=== PATIENT | female | born 1975 | race African-American/Black ===

== ENCOUNTER 2019-12-16 22:19 | Emergency (ER) | payer MEDICARE, MEDICAID, SELFPAY ==
[2019-12-16 22:29] VITALS: BP 111/82; PULSE 89; RESP 18; TEMP 36.6; O2SAT 99; BMI 45.8
--- NOTE | 2019-12-16 23:07 | ED_ITS ---
HPI - Weakness General Chief complaint: Weakness Stated complaint: DIFFICULTY AMBULATING,MULTIPLE FALLS TODAY Time Seen by Provider: 12/16/19 22:42 Source: patient Mode of arrival: EMS Limitations: no limitations History of Present Illness HPI Narrative: patient with bipolar disorder fibromyalgia and dissociative d isorder with chronic neuropathy came by ambulance for frequent falls since today she fell 4 times says that she has pain in the legs and does not feel very well which is chronic taking Lyrica. At scene per EMS patient was ambulatory when they arrived MD Complaint: generalized weakness Related Data Allergies Allergy/AdvReac Type Severity Reaction Status Date / Time bee pollen [Bee Stings] Allergy Severe ANAPHYLAXIS Unverified 11/21/19 15:15 mushroom Allergy Severe ANAPHYLAXIS Unverified 11/21/19 15:15 aspirin Allergy Unknown BLEED Unverified 11/21/19 15:15 Bleach (Sodium Hypochlorite) Allergy Unknown RASH Unverified 11/21/19 15:15 [BLEACH (SODIUM HYPOCHLORITE)] ibuprofen Allergy Unknown Verified 04/10/17 00:00 lactose [Lactose] Allergy Unknown STOMACH Unverified 11/21/19 15:15 ACHE morphine [Morphine] Allergy Unknown ITCHING Unverified 11/21/19 15:15 NSAIDS (Non-Steroidal AdvReac Unknown BLEED,COUMA Unverified 11/21/19 15:15 Anti-Inflamma DIN [Nsaids] bee sting Allergy Unknown anaphylaxis Uncoded 12/13/16 00:00 BEES Allergy Unknown Uncoded 04/10/17 00:00 LACTOSE Allergy Unknown Uncoded 04/10/17 00:00 MUSHROOMS Allergy Unknown Uncoded 04/10/17 00:00 mushrooms Allergy Unknown Uncoded 12/13/16 00:00 NSAIDS Allergy Unknown Uncoded 12/13/16 00:00 Review of Systems Review of Systems: REVIEW OF SYSTEMS: Pertinent positives and negatives are stated above in the history. GEN: no fevers, chills, fatigue HEENT: no nasal congestion, sore throat, ear pain NEURO: no headache, dizziness, focal weakness PULM: chronic cough+, shortness of breath CV: no chest pain, palpitations, LE edema ABD: no abdominal pain, nausea, vomiting, diarrhea : no dysuria, urgency, frequency SKIN: no rash ROS otherwise negative x 10 PMFSH Past Medical History Medical History Cervical cancer COPD (chronic obstructive pulmonary disease) Deep vein thrombosis Heart failure Herniated disc Neuropathy Pacemaker Pulmonary embolism Stomach cancer Surgical History Gastric bypass status for obesity Hx of cholecystectomy Social History Social History Alcohol intake: never Smoking Status: Never smoker Use of substances other than those prescribed or required for medical reasons: No Advance Directives: No Physical Exam Vital Signs: Vital Signs: Vital Signs Temp Pulse Resp BP Pulse Ox 12/17/19 00:07 91 14 112/76 95 12/16/19 22:29 97.8 F 89 18 111/82 99 Body Mass Index 45.8 Appearance: Alert. Oriented X3. No acute distress. Eyes: Pupils equal, round and reactive to light. ENT: Pharynx normal. Neck: Normal inspection. Neck supple. CVS: Normal heart rate and rhythm. Pulses normal. Respiratory: No respiratory distress. Breath sounds normal. Abdomen: Soft and nontender. patient refused rectal exam Skin: Skin warm and dry. Normal skin color. Normal skin turgor. Extremities: No lower extremity edema. Good range of movement diffusely tender to touch both lower extremities left more than right no calf swelling Neuro: Oriented X 3. No motor deficit. No sensory deficit. Course Course Course Narrative: patient with chronic pain fibromyalgia says that she has sickle cell trait and chronically anemic also complains of bright red blood off and on patient refused rectal exam as said she has a follow-up plan with Dr. Mcbride. Patient is with chronic pain asking for medication for chronic pain will give her prescription of Dilaudid also advised her to follow-up with her commercial sales director and PCP for anemia and hold Coumadin for next 2 days she has a machine at home to check her INR MDM - Weakness Lab Data Result diagrams: 12/16/19 23:32 12/16/19 23:32 Labs: Lab Results 12/16/19 12/16/19 12/16/19 Range/Units 23:32 23:32 23:32 WBC 10.5 (4.8-10.8) X10*3/uL RBC 5.33 (4.20-5.50) X10*6/uL Hgb 9.2 L (12.0-16.0) g/dl Hct 31.9 L (37-47) % MCV 59.8 L (80-98) fL MCH 17.3 L (27.0-33.0) pg MCHC 28.8 L (31.0-35.0) g/dl RDW 24.4 H (11.0-16.0) % Plt Count 375 (160-400) X10*3/uL MPV 9.1 L (9.4-12.3) fL Immature Gran % (Auto) 0.4 (0.0-0.4) % Neut % (Auto) 69.8 (45-73) % Lymph % (Auto) 21.4 (20-40) % Nelson % (Auto) 7.7 (2-11) % Eos % (Auto) 0.6 (0-4) % Baso % (Auto) 0.1 (0-2) % Lymph # (Auto) 2.2 (1.2-4.9) X10*3/uL Nelson # (Auto) 0.8 (0.1-1.2) X10*3/uL Eos # (Auto) 0.1 (0.0-0.4) X10*3/uL Baso # (Auto) 0.0 (0.0-0.2) X10*3/uL Abs Immat Gran (auto) 0.04 H (0.00-0.03) X10*3/uL Absolute Neuts (auto) 7.3 (2.0-8.3) X10*3/uL Absolute Nucleated RBC 0.000 (0.0-0.012) X10*3/uL Nucleated RBC % (auto) 0.0 (0.0-0.2) /100WBC Smear Tech's Comments VERIFIED PT 133.9 H (10.8-13.0) SEC INR 11.0 H* (0.9-1.1) Sodium 142 (135-145) mmol/L Potassium 4.0 (3.3-5.1) mmol/l Chloride 116 H (96-108) mmol/L Carbon Dioxide 19 L (22-29) mmol/L Anion Gap 11 L (12-20) BUN 9 (9-16) mg/dL Creatinine 0.85 (0.5-1.4) mg/dL Estim Creat Clear Calc 111.1 Estimated GFR > 60 Random Glucose 89 (60-115) mg/dL Calcium 7.9 L (8.4-10.2) mg/dL Magnesium 2.0 (1.6-2.6) mg/dL
[2019-12-16] MEDS: HYDROmorphone HCl 2 MG/ML VIAL IVPUSH (23:36)
[2019-12-16 23:38] LABS: Basophils Percent Auto 0.1 % (0-2); Eosinophils Percent Auto 0.6 % (0-4); Imm Gran Abs Auto 0.04 X10*3/uL (0.00-0.03); Imm Gran Pct Auto 0.4 % (0.0-0.4); MANUAL DIFF FLAG SCAN; Mean Corpuscular Hemoglobin 17.3 pg (27.0-33.0); Mean Corpuscular Volume 59.8 fL (80-98); Monocytes Percent Auto 7.7 % (2-11); PLT ABN DIST 1; SCAN SMEAR FLAG 1
[2019-12-16 23:40] LABS: Eosinophils Absolute Auto 0.1 X10*3/uL (0.0-0.4); Hematocrit 31.9 % (37-47); Hemoglobin 9.2 g/dl (12.0-16.0); Lymphocytes Absolute Auto 2.2 X10*3/uL (1.2-4.9); Lymphocytes Percent Auto 21.4 % (20-40); Mean Corpuscular HGB Conc 28.8 g/dl (31.0-35.0); Mean Platelet Volume 9.1 fL (9.4-12.3); Monocytes Absolute Auto 0.8 X10*3/uL (0.1-1.2); Neutrophils Absolute Auto 7.3 X10*3/uL (2.0-8.3); Neutrophils Percent Auto 69.8 % (45-73); Platelet Count 375 X10*3/uL (160-400); Red Blood Count 5.33 X10*6/uL (4.20-5.50); Red Cell Distribution Width 24.4 % (11.0-16.0); White Blood Count 10.5 X10*3/uL (4.8-10.8)
[2019-12-16 23:51] LABS: Prothrombin Time 133.9 SEC (10.8-13.0)
[2019-12-17 00:07] VITALS: BP 112/76; PULSE 91; RESP 14; O2SAT 95
[2019-12-17 00:11] LABS: SLIDE REVIEW VERIFIED
[2019-12-17 00:13] LABS: Anion Gap 11 (12-20); Blood Urea Nitrogen 9 mg/dL (9-16); Calcium 7.9 mg/dL (8.4-10.2); Carbon Dioxide 19 mmol/L (22-29); Chloride 116 mmol/L (96-108); Creatinine Clr Calc Pharmacy 111.1; Estimated Glomerular Filt Rate > 60; Glucose Random 89 mg/dL (60-115); Sodium 142 mmol/L (135-145)
[2019-12-17] MEDS: Albuterol/Iprat 2.5/0.5MG 3 ML AMPUL.NEB INHALE (00:39)
== END 2019-12-17 01:15 | disposition home or self-care (01) ==
PROVIDERS: Emergency Provider Internal Medicine; PCP Family Medicine
DX: M79.7 Fibromyalgia (principal); D64.9 Anemia, unspecified; Z91.81 History of falling; G62.89 Other specified polyneuropathies; F31.9 Bipolar disorder, unspecified; F44.9 Dissociative and conversion disorder, unspecified; Z79.01 Long term (current) use of anticoagulants; Z79.899 Other long term (current) drug therapy
CPT/HCPCS: 36415; 80048; 83735; 85025; 85060; 85610; 96374; 99284; J1170

== ENCOUNTER 2020-03-15 15:25 | Inpatient (IN) | payer MEDICARE, MEDICAID, SELFPAY ==
[2020-03-15] VITALS (12 sets, daily range): BP systolic 92–131; BP diastolic 50–82; PULSE 111–121; RESP 16–24; TEMP 36.6–37.4; O2SAT 97–100; BMI 46.5
--- NOTE | 2020-03-15 | XR_ITS ---
EXAMINATION: XR CHEST CLINICAL INFORMATION: 44-year-old female patient with cough COMPARISON: Portable chest x-ray on 03/28/2019. TECHNIQUE: AP portable semierect view of the chest was obtained. The time of examination was 6:10 PM. The patient is significantly rotated for this exam. FINDINGS: The heart is not enlarged. A left pectoral pacemaker is in place one wire which terminates in the right atrium and the other in the right ventricle. The lungs are clear showing no evidence of edema or consolidation. No pleural effusion is seen. XR/XR chest 1V IMPRESSION: No consolidating pneumonia.
--- NOTE | 2020-03-15 | ECG_ITS ---
Test Reason : WEAKNESS Blood Pressure : / mmHG Vent. Rate : 114 BPM Atrial Rate : 114 BPM P-R Int : 096 ms QRS Dur : 080 ms QT Int : 472 ms P-R-T Axes : 000 033 062 degrees QTc Int : 650 ms Sinus tachycardia with short WV Cannot rule out Inferior infarct (cited on or before 15-MAR-2020) Prolonged QT Abnormal ECG When compared with ECG of 05-APR-2019 13:25, WV interval has decreased Vent. rate has increased BY 46 BPM Referred By: Generic ED Physician Electronically Signed By:Dex Frausto
--- NOTE | 2020-03-15 16:14 | ED_ITS ---
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 Also reports subjective fever and chills. Denies sick contacts, LE edema, dysuria/hematuria MD Complaint: generalized weakness and lack of energy Related Data Home Medications Medication Instructions Recorded Confirmed [id number] 1 tab PO DAILY PRN 03/15/20 diazepam 1 tab PO BEDTIME 03/15/20 dicyclomine 1 tab PO QID 03/15/20 esomeprazole magnesium 1 cap PO BID 03/15/20 hydroxyzine pamoate 1 cap PO TID PRN 03/15/20 ipratropium-albuterol [Combivent 1 puff PO QID 03/15/20 Respimat] lamotrigine 1 tab PO BID 03/15/20 lamotrigine 1 tab PO DAILY 03/15/20 loratadine 1 tab PO DAILY 03/15/20 methocarbamol 2 tab PO BID 03/15/20 olanzapine 1 tab PO BEDTIME 03/15/20 ondansetron HCl 1 tab PO TID PRN 03/15/20 prazosin 1 cap PO BEDTIME 03/15/20 pregabalin 1 cap PO TID 03/15/20 sucralfate 10 ml PO QIDWMHS 03/15/20 topiramate 100 mg PO DAILY 03/15/20 topiramate 200 mg PO BEDTIME 03/15/20 warfarin 10 mg PO SUTUTHSA@1800 03/15/20 warfarin 15 mg PO MOWEFR@1800 03/15/20 zonisamide 1 cap PO BID 03/15/20 Allergies Allergy/AdvReac Type Severity Reaction Status Date / Time bee pollen [Bee Stings] Allergy Severe ANAPHYLAXIS Unverified 11/21/19 15:15 mushroom Allergy Severe ANAPHYLAXIS Unverified 11/21/19 15:15 aspirin Allergy Unknown BLEED Unverified 11/21/19 15:15 Bleach (Sodium Hypochlorite) Allergy Unknown RASH Unverified 11/21/19 15:15 [BLEACH (SODIUM HYPOCHLORITE)] ibuprofen Allergy Unknown Verified 04/10/17 00:00 lactose [Lactose] Allergy Unknown STOMACH Unverified 11/21/19 15:15 ACHE morphine [Morphine] Allergy Unknown ITCHING Unverified 11/21/19 15:15 NSAIDS (Non-Steroidal AdvReac Unknown BLEED,COUMA Unverified 11/21/19 15:15 Anti-Inflamma DIN [Nsaids] bee sting Allergy Unknown anaphylaxis Uncoded 12/13/16 00:00 BEES Allergy Unknown Uncoded 04/10/17 00:00 LACTOSE Allergy Unknown Uncoded 04/10/17 00:00 MUSHROOMS Allergy Unknown Uncoded 04/10/17 00:00 mushrooms Allergy Unknown Uncoded 12/13/16 00:00 NSAIDS Allergy Unknown Uncoded 12/13/16 00:00 Review of Systems Review of Systems: Constitutional: No Weight loss, +Sunjective Fever, No Chills, No Night Sweats, + Fatigue, + Malaise ENT/Mouth: No sore throat, No Rhinorrhea, No Swallowing Difficulty Cardiovascular: No Chest Pain, + SOB, No Dyspnea on Exertion, No Orthopnea, No Edema, No Palpitations Respiratory: + Cough, + Sputum, No Dyspnea Gastrointestinal: + Nausea, No Vomiting, + Diarrhea, No Constipation, + Abdominal pain Genitourinary: No Dysuria, No Urinary Frequency, No Hematuria Musculoskeletal: + joint pain, +Myalgias, No Joint Swelling Skin: No Skin Lesions, No rash Neuro: + Weakness, No Numbness, No Paresthesias,+ Loss of Consciousness, +Headache Yes all other systems are reviewed and are negative [facility] Past Medical History Attestation statement: The following information was validated with the patient. Medical History Cervical cancer COPD (chronic obstructive pulmonary disease) Deep vein thrombosis Heart failure Herniated disc Neuropathy Pacemaker Pulmonary embolism Stomach cancer Surgical History Gastric bypass status for obesity Hx of cholecystectomy Social History Social History Alcohol intake: never Smoking Status: Current every day smoker Smoked in Last 30 Days: Yes Use of substances other than those prescribed or required for medical reasons: Yes Substance Use Type: Marijuana Substance Use Frequency: Occasionally Last Used Substance: Unknown Advance Directives: No Advance Directives Information Provided: Yes Physical Exam Vital Signs: Vital Signs: Last Vital Signs Temp 97.8 F 03/15/20 20:15 Pulse 117 H 03/15/20 20:15 Resp 20 03/15/20 20:15 BP 102/57 L 03/15/20 20:15 Pulse Ox 99 03/15/20 20:02 Body Mass Index 46.5 Const: Nutritional Appearance: obese Limitations: no limitations HENMT: Head: Yes normal to inspection Ears: hearing grossly normal bilaterally General nose exam: Normal external nose present Face and sinus: Yes normal facial exam Eyes: General: appearance normal, both eyes and all related structures Pupils: Equal, round and reactive pupils present EOM: EOMs intact bilaterally Neck: Neck: Yes normal visual inspection and Yes no meningeal signs Resp: Effort & Inspection: normal respiratory effort Auscultation: crackles (Coarse lung sounds throughout) and no wheezes Cardio: Rate: regular rate Heart sounds: S1 normal heart sound present and S2 normal heart sound present GI: Inspection: Yes normal to inspection Palpation (GI): Soft to palpation, Tenderness to palpation present (GI) (Diffusely), no guarding and not rigid Skin: Rashes: no rashes Wounds: no wounds Neuro: Other: Patient uncooperative with exam General: tone normal, no meningeal signs and no focal motor deficits Cranial nerves: Yes Equal, round and reactive pupils present Extrem: General: Yes normal to inspection Course Course Course Narrative: * H/H low at 3.9/13 > will type and screen, transfuse 2 units RBCs to start, and obtain occult stool > with patient's mental status and hemodynamics unlikely acute bleed as patient is compensated * Leukocytosis of 23 > likely from hemoconcentration/low H&H rather than severe sepsis/infection * 1825- upon further questioning patient admits she has been having her menses for longer than normal, has been vaginally bleeding for about 2 weeks, unable to tell me number of pads daily. On evaluation no active exsanguination appreciated, scant amount of blood on pad. Remaining labs resulted INR grea ter than 26 >> 10IV Vitamin K & 4U FFP ordered. Blood consent signed in patient's chart. Spoke to ICU, Dr. 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 On exam tachycardic, tachypneic, lungs with coarse breath sounds throughout all, not cooperative with exam. Concern for viral syndrome/COVID-19 vs pneumonia vs intra-abdominal process. Rule out metabolic/infectious etiology and ICH Plan: EKG, labs, UA, CXR/imaging, lactic, blood cultures, COVID-19 testing, IVF, anticipated admission Lab Data Result diagrams: 03/15/20 17:37 03/15/20 17:37 Labs: Lab Results 03/15/20 03/15/20 03/15/20 Range/Units 15:43 17:37 17:37 WBC 23.1 H (4.8-10.8) X10*3/uL RBC 2.19 L D (4.20-5.50) X10*6/uL Hgb 3.9 L* D (12.0-16.0) g/dl Hct 13.0 L* D (37-47) % MCV 59.4 L (80-98) fL MCH 17.8 L (27.0-33.0) pg MCHC 30.0 L (31.0-35.0) g/dl RDW 22.5 H (11.0-16.0) % Plt Count 211 D (160-400) X10*3/uL MPV 9.9 (9.4-12.3) fL Immature Gran % (Auto) 2.7 H (0.0-0.4) % Neut % (Auto) 80.7 H (45-73) % Lymph % (Auto) 9.7 L (20-40) % Logan % (Auto) 6.8 (2-11) % Eos % (Auto) 0.0 (0-4) % Baso % (Auto) 0.1 (0-2) % Lymph # (Auto) 2.3 (1.2-4.9) X10*3/uL Logan # (Auto) 1.6 H (0.1-1.2) X10*3/uL Eos # (Auto) 0.0 (0.0-0.4) X10*3/uL Baso # (Auto) 0.0 (0.0-0.2) X10*3/uL Abs Immat Gran (auto) 0.62 H (0.00-0.03) X10*3/uL Absolute Neuts (auto) 18.6 H (2.0-8.3) X10*3/uL Absolute Nucleated RBC 0.150 H (0.0-0.012) X10*3/uL Nucleated RBC % (auto) 0.6 H (0.0-0.2) /100WBC Smear Tech's Comments VERIFIED Hold Purple Top PT (10.8-13.0) SEC INR (0.9-1.1) APTT (24.1-38.0) SEC D-Dimer NG/ML Sodium (135-145) mmol/L Potassium (3.3-5.1) mmol/l Chloride (96-108) mmol/L Carbon Dioxide (22-29) mmol/L Anion Gap (12-20) BUN (9-16) mg/dL Creatinine (0.5-1.4) mg/dL Estim Creat Clear Calc Estimated GFR Random Glucose (60-115) mg/dL Lactic Acid 2.6 H* (0.5-2.0) mmol/L Calcium (8.4-10.2) mg/dL Magnesium (1.6-2.6) mg/dL Total Bilirubin (0.0-1.0) mg/dL Direct Bilirubin (0.0-0.5) mg/dL AST (5-31) U/L ALT (0-31) U/L Alkaline Phosphatase (39-117) U/L Troponin I High Sens (<3.5-17.0) ng/L Total Protein (6.5-8.0) g/dL Albumin (3.5-5.0) g/dL Lipase (8-78) U/L Stool Occult Blood (NEG) Ethyl Alcohol mg/dL Coronavirus (PCR) NEGATIVE (Negative) Influenza Type A (PCR) NEGATIVE (Negative) Influenza Type B (PCR) NEGATIVE (Negative) RSV RNA Qual (PCR) NEGATIVE (Negative) Blood Type Antibody Screen Crossmatch 03/15/20 03/15/20 03/15/20 Range/Units 17:37 17:37 17:38 WBC (4.8-10.8) X10*3/uL RBC (4.20-5.50) X10*6/uL Hgb (12.0-16.0) g/dl Hct (37-47) % MCV (80-98) fL MCH (27.0-33.0) pg MCHC (31.0-35.0) g/dl RDW (11.0-16.0) % Plt Count (160-400) X10*3/uL MPV (9.4-12.3) fL Immature Gran % (Auto) (0.0-0.4) % Neut % (Auto) (45-73) % Lymph % (Auto) (20-40) % Logan % (Auto) (2-11) % Eos % (Auto) (0-4) % Baso % (Auto) (0-2) % Lymph # (Auto) (1.2-4.9) X10*3/uL Logan # (Auto) (0.1-1.2) X10*3/uL Eos # (Auto) (0.0-0.4) X10*3/uL Baso # (Auto) (0.0-0.2) X10*3/uL Abs Immat Gran (auto) (0.00-0.03) X10*3/uL Absolute Neuts (auto) (2.0-8.3) X10*3/uL Absolute Nucleated RBC (0.0-0.012) X10*3/uL Nucleated RBC % (auto) (0.0-0.2) /100WBC Smear Tech's Comments Hold Purple Top SEE NOTE PT > 320.0 H D (10.8-13.0) SEC INR > 26.0 H* D (0.9-1.1) APTT > 200.0 H* (24.1-38.0) SEC D-Dimer 242 NG/ML Sodium 138 (135-145) mmol/L Potassium 3.2 L (3.3-5.1) mmol/l Chloride 107 (96-108) mmol/L Carbon Dioxide 21 L (22-29) mmol/L Anion Gap 13 (12-20) BUN 15 D (9-16) mg/dL Creatinine 1.17 (0.5-1.4) mg/dL Estim Creat Clear Calc 81.4 Estimated GFR 50 Random Glucose 113 (60-115) mg/dL Lactic Acid (0.5-2.0) mmol/L Calcium 7.0 L D (8.4-10.2) mg/dL Magnesium 2.1 (1.6-2.6) mg/dL Total Bilirubin 0.6 (0.0-1.0) mg/dL Direct Bilirubin 0.4 (0.0-0.5) mg/dL AST 75 H (5-31) U/L ALT 34 H (0-31) U/L Alkaline Phosphatase 104 (39-117) U/L Troponin I High Sens (<3.5-17.0) ng/L Total Protein 4.5 L (6.5-8.0) g/dL Albumin 2.6 L (3.5-5.0) g/dL Lipase 10 (8-78) U/L Stool Occult Blood (NEG) Ethyl Alcohol mg/dL Coronavirus (PCR) (Negative) Influenza Type A (PCR) (Negative) Influenza Type B (PCR) (Negative) RSV RNA Qual (PCR) (Negative) Blood Type Antibody Screen Crossmatch 03/15/20 03/15/20 03/15/20 Range/Units 17:38 17:38 18:34 WBC (4.8-10.8) X10*3/uL RBC (4.20-5.50) X10*6/uL Hgb (12.0-16.0) g/dl Hct (37-47) % MCV (80-98) fL MCH (27.0-33.0) pg MCHC (31.0-35.0) g/dl RDW (11.0-16.0) % Plt Count (160-400) X10*3/uL MPV (9.4-12.3) fL Immature Gran % (Auto) (0.0-0.4) % Neut % (Auto) (45-73) % Lymph % (Auto) (20-40) % Logan % (Auto) (2-11) % Eos % (Auto) (0-4) % Baso % (Auto) (0-2) % Lymph # (Auto) (1.2-4.9) X10*3/uL Logan # (Auto) (0.1-1.2) X10*3/uL Eos # (Auto) (0.0-0.4) X10*3/uL Baso # (Auto) (0.0-0.2) X10*3/uL Abs Immat Gran (auto) (0.00-0.03) X10*3/uL Absolute Neuts (auto) (2.0-8.3) X10*3/uL Absolute Nucleated RBC (0.0-0.012) X10*3/uL Nucleated RBC % (auto) (0.0-0.2) /100WBC Smear Tech's Comments Hold Purple Top PT (10.8-13.0) SEC INR (0.9-1.1) APTT (24.1-38.0) SEC D-Dimer NG/ML Sodium (135-145) mmol/L Potassium (3.3-5.1) mmol/l Chloride (96-108) mmol/L Carbon Dioxide (22-29) mmol/L Anion Gap (12-20) BUN (9-16) mg/dL Creatinine (0.5-1.4) mg/dL Estim Creat Clear Calc Estimated GFR Random Glucose (60-115) mg/dL Lactic Acid (0.5-2.0) mmol/L Calcium (8.4-10.2) mg/dL Magnesium (1.6-2.6) mg/dL Total Bilirubin (0.0-1.0) mg/dL Direct Bilirubin (0.0-0.5) mg/dL AST (5-31) U/L ALT (0-31) U/L Alkaline Phosphatase (39-117) U/L Troponin I High Sens 7.8 (<3.5-17.0) ng/L Total Protein (6.5-8.0) g/dL Albumin (3.5-5.0) g/dL Lipase (8-78) U/L Stool Occult Blood (NEG) Ethyl Alcohol < 10 mg/dL Coronavirus (PCR) (Negative) Influenza Type A (PCR) (Negative) Influenza Type B (PCR) (Negative) RSV RNA Qual (PCR) (Negative) Blood Type O Positive Antibody Screen NEGATIVE Crossmatch See Detail 03/15/20 Range/Units 18:36 WBC (4.8-10.8) X10*3/uL RBC (4.20-5.50) X10*6/uL Hgb (12.0-16.0) g/dl Hct (37-47) % MCV (80-98) fL MCH (27.0-33.0) pg MCHC (31.0-35.0) g/dl RDW (11.0-16.0) % Plt Count (160-400) X10*3/uL MPV (9.4-12.3) fL Immature Gran % (Auto) (0.0-0.4) % Neut % (Auto) (45-73) % Lymph % (Auto) (20-40) % Logan % (Auto) (2-11) % Eos % (Auto) (0-4) % Baso % (Auto) (0-2) % Lymph # (Auto) (1.2-4.9) X10*3/uL Logan # (Auto) (0.1-1.2) X10*3/uL Eos # (Auto) (0.0-0.4) X10*3/uL Baso # (Auto) (0.0-0.2) X10*3/uL Abs Immat Gran (auto) (0.00-0.03) X10*3/uL Absolute Neuts (auto) (2.0-8.3) X10*3/uL Absolute Nucleated RBC (0.0-0.012) X10*3/uL Nucleated RBC % (auto) (0.0-0.2) /100WBC Smear Tech's Comments Hold Purple Top PT (10.8-13.0) SEC INR (0.9-1.1) APTT (24.1-38.0) SEC D-Dimer NG/ML Sodium (135-145) mmol/L Potassium (3.3-5.1) mmol/l Chloride (96-108) mmol/L Carbon Dioxide (22-29) mmol/L Anion Gap (12-20) BUN (9-16) mg/dL Creatinine (0.5-1.4) mg/dL Estim Creat Clear Calc Estimated GFR Random Glucose (60-115) mg/dL Lactic Acid (0.5-2.0) mmol/L Calcium (8.4-10.2) mg/dL Magnesium (1.6-2.6) mg/dL Total Bilirubin (0.0-1.0) mg/dL Direct Bilirubin (0.0-0.5) mg/dL AST (5-31) U/L ALT (0-31) U/L Alkaline Phosphatase (39-117) U/L Troponin I High Sens (<3.5-17.0) ng/L Total Protein (6.5-8.0) g/dL Albumin (3.5-5.0) g/dL Lipase (8-78) U/L Stool Occult Blood POS (NEG) Ethyl Alcohol mg/dL Coronavirus (PCR) (Negative) Influenza Type A (PCR) (Negative) Influenza Type B (PCR) (Negative) RSV RNA Qual (PCR) (Negative) Blood Type Antibody Screen Crossmatch Critical Care Time Critical Care Time Critical Care Time: Yes Total Critical Care Time: 60 Attestation: Discharge Plan Discharge Clinical Impression: Occult blood in stools, Vaginal bleeding Anemia Qualifiers: Anemia type: unspecified type Qualified Code(s): D64.9 - Anemia, unspecified Falls Qualifiers: Encounter type: initial encounter Qualified Code(s): W19.XXXA - Unspecified fall, initial encounter Abdominal pain Qualifiers: Abdominal location: generalized Qualified Code(s): R10.84 - Generalized abdominal pain Patient Disposition: Admitted As Inpatient
--- NOTE | 2020-03-15 16:21 | CT_ITS ---
EXAMINATION: CT HEAD WITHOUT CONTRAST CLINICAL INFORMATION: Fall on Coumadin. COMPARISON: Prior CT examinations of the brain most recent 02/25/2019. TECHNIQUE: Contiguous axial imaging was performed from the skull base to vertex without intravenous administration of contrast. This CT examination was performed using dose optimization techniques as appropriate, variously including the following: *Automated exposure control *Adjustment of mA and/or kV according to patient size (this includes techniques or standardized protocols for targeted exams where dose is matched to indication/reason for exam; i.e. extremities or head) *Use of iterative reconstruction technique DLP: 803 mGy-cm FINDINGS: There is no evidence of acute intracranial hemorrhage or territorial infarction. No abnormal mass effect or midline shift is seen. Way to white matter differentiation is well preserved. No extra-axial fluid collections are identified. The ventricles are normal in size. There is no abnormal attenuation within the brain parenchyma. The osseous structures and soft tissues are normal. The mastoid air cells and visualized portions of the paranasal sinuses are well aerated. CT/CT head/brain wo con IMPRESSION: No acute intracranial pathology.
[2020-03-15 16:33] LABS: Influenza A PCR NEGATIVE (Negative); Influenza B PCR NEGATIVE (Negative); Resp Syncy Virus RNA Qual PCR NEGATIVE (Negative); SARS COV2 PCR INHOUSE NEGATIVE (Negative)
[2020-03-15] MEDS: Albuterol Sulfate 90 MCG 8 GM INHALER 4 PUFF INHALE (17:15)
[2020-03-15] MEDS: 0.9 % Sodium Chloride 1,000 ML 999 ML IV (17:43)
[2020-03-15 17:51] LABS: MANUAL DIFF FLAG SCAN; NRBC Pct Auto 0.6 /100WBC (0.0-0.2); SCAN SMEAR FLAG 1
[2020-03-15] MEDS: cefTRIAXone sodium 1 GM in 0.9 % Sodium Chloride 50 ML IV (17:51)
[2020-03-15 17:52] LABS: Basophils Percent Auto 0.1 % (0-2); Imm Gran Abs Auto 0.62 X10*3/uL (0.00-0.03); Imm Gran Pct Auto 2.7 % (0.0-0.4); Lymphocytes Absolute Auto 2.3 X10*3/uL (1.2-4.9); Lymphocytes Percent Auto 9.7 % (20-40); Mean Corpuscular Hemoglobin 17.8 pg (27.0-33.0); Mean Platelet Volume 9.9 fL (9.4-12.3); Monocytes Absolute Auto 1.6 X10*3/uL (0.1-1.2); Monocytes Percent Auto 6.8 % (2-11); Neutrophils Absolute Auto 18.6 X10*3/uL (2.0-8.3); Neutrophils Percent Auto 80.7 % (45-73); Platelet Count 211 X10*3/uL (160-400); Red Blood Count 2.19 X10*6/uL (4.20-5.50); Red Cell Distribution Width 22.5 % (11.0-16.0); White Blood Count 23.1 X10*3/uL (4.8-10.8)
[2020-03-15] MEDS: 0.9 % Sodium Chloride 500 ML 999 ML IV (17:53)
[2020-03-15 18:00] LABS: D Dimer 242 NG/ML
[2020-03-15 18:03] LABS: Mean Corpuscular Volume 59.4 fL (80-98); PLT ABN DIST 1
[2020-03-15 18:04] LABS: Hemoglobin 3.9 g/dl (12.0-16.0)
[2020-03-15 18:09] LABS: Lactic Acid 2.6 mmol/L (0.5-2.0)
[2020-03-15 18:15] LABS: INTERNATIONAL NORM RATIO > 26.0 (0.9-1.1); Partial Thromboplastin Time > 200.0 SEC (24.1-38.0); Prothrombin Time > 320.0 SEC (10.8-13.0)
[2020-03-15 18:17] LABS: Troponin-I High Sensitivity 7.8 ng/L (<3.5-17.0)
[2020-03-15 18:18] LABS: SLIDE REVIEW VERIFIED
[2020-03-15] MEDS: Acetaminophen 325 MG TABLET 650 MG PO (18:35)
[2020-03-15 18:36] LABS: Ethanol < 10 mg/dL
[2020-03-15 18:41] LABS: Alanine Aminotransferase 34 U/L (0-31); Albumin Level 2.6 g/dL (3.5-5.0); Alkaline Phosphatase 104 U/L (39-117); Anion Gap 13 (12-20); Aspartate Amino Transferase 75 U/L (5-31); Bilirubin Direct 0.4 mg/dL (0.0-0.5); Bilirubin Total 0.6 mg/dL (0.0-1.0); Blood Urea Nitrogen 15 mg/dL (9-16); Carbon Dioxide 21 mmol/L (22-29); Chloride 107 mmol/L (96-108); Creatinine Clr Calc Pharmacy 81.4; Estimated Glomerular Filt Rate 50; Glucose Random 113 mg/dL (60-115); Lipase 10 U/L (8-78); Magnesium 2.1 mg/dL (1.6-2.6); Potassium 3.2 mmol/l (3.3-5.1); Sodium 138 mmol/L (135-145); Total Protein 4.5 g/dL (6.5-8.0)
--- NOTE | 2020-03-15 18:42 | PM.CCN ---
Critical Care Event Note Summary Code activated: No Narrative: 44 y/o F with underlying DVT/PE on coumadin presenting with ~2week of menometrorrhagia, weakness, falls. On evaluation - Hb 3.9, tachycardic 110's, SBP 90's, INR>26. Rec: elucidate the reason for underlying PPM, 1unit of PRBC and FFP + 1L of LR over the next hour. Replete K. Re-evaluate in ~60 minutes - if hemodynamicas improbing - tele, if still tachy - ICU. Discussed with ER provider. Critical Care Time (minutes): 0
[2020-03-15 19:01] LABS: OBS1 POS (NEG)
[2020-03-15 19:02] LABS: OBS Int Ctl Valid YES
--- NOTE | 2020-03-15 19:11 | CT_ITS ---
EXAMINATION: CT ABDOMEN AND PELVIS WITHOUT CONTRAST CLINICAL INFORMATION: Abdominal pain. Diarrhea. Positive occult stool COMPARISON: 03/28/2019 TECHNIQUE: Multidetector volumetric imaging was performed from the superior aspect of the liver through the pubic symphysis. Sagittal and coronal reformatted images were obtained on the technologist's workstation. This CT examination was performed using dose optimization techniques as appropriate, variously including the following: *Automated exposure control *Adjustment of mA and/or kV according to patient size (this includes techniques or standardized protocols for targeted exams where dose is matched to indication/reason for exam; i.e. extremities or head) *Use of iterative reconstruction technique DLP: 1232 mGy-cm FINDINGS: The lack of intravenous contrast limits evaluation of the solid visceral organs including the liver, spleen, pancreas, and kidneys. LUNG BASES: Partially imaged pacer wires. Normal heart size. Lungs are otherwise clear. LIVER, GALLBLADDER, AND BILIARY TREE: Limited non-contrast evaluation is normal. No gross focal hepatic lesion. Normal liver size and contour. No gross biliary ductal dilation. Status post cholecystectomy. PANCREAS: Limited non-contrast evaluation is normal. No jason-pancreatic fluid. SPLEEN: Limited non-contrast evaluation is normal. ADRENAL GLANDS: Normal; no adrenal mass. KIDNEYS AND URETERS: Limited non-contrast evaluation is normal. No hydronephrosis, hydroureter, or calculi seen. No perinephric stranding. GASTROINTESTINAL TRACT: Postoperative changes consistent with prior gastric bypass. There is a hiatal hernia. Large volume of stool in the colon suggests constipation. No evidence of colitis or diverticulitis. ABDOMINAL WALL: Fat-containing umbilical hernia. Motion artifact. Postoperative changes of the right anterior pelvis. LYMPH NODES: No pathologically enlarged lymph nodes in the abdomen or pelvis. VASCULAR: Normal caliber abdominal aorta. BLADDER: The urinary bladder is significantly distended. PELVIC VISCERA: Normal noncontrast appearance of the uterus and ovaries. OSSEOUS STRUCTURES: Multilevel degenerative changes of the spine. There is a nonspecific density in the right epidural space at the level of L4, possibly a dystrophic calcification. New from the prior study, there is asymmetric enlargement of the left psoas muscle suggestive of the retroperitoneal left psoas hematoma. There is surrounding fluid and fat stranding. There is fluid and fat stranding within the left posterior gluteal region as well. This was present previously and could be dependent edema. CT/CT abdomen pelvis wo con IMPRESSION: Asymmetric enlargement of the left psoas muscle suggesting an retroperitoneal intramuscular left psoas hematoma. Recommend clinical correlation The urinary bladder is significantly distended. If the patient can't void spontaneously a Welch catheter may be helpful.
--- NOTE | 2020-03-15 19:28 | PC.NURSE ---
FIRST UNIT OF FFP STARTED AT THIS TIME. PATIENT REPORTS DIFFICULTY VOIDING. DOES NOT WANT TO GET OFF BED MODI AT THIS TIME. SINUS TACH ON SLIVER HANDLER. LIPS AND NAIL BEDS NOTED TO BE PALE.
[2020-03-15 19:45] LABS: Reflex Lactate? Lactic Acid Added
[2020-03-15] MEDS: Phytonadione (Vit K1) 10 MG in 0.9 % Sodium Chloride 50 ML 51 MG IV (19:46)
--- NOTE | 2020-03-15 20:19 | PC.NURSE ---
LUNGS CLEAR TO AUSCULTATION. SINUS TACH ON MONITOR. NAUSEOUS AND IN PAIN. SPOKE WITH EM LANGE. WILL PUT IN FOR PAIN MEDS. NEEDS TO WAIT FOR PO FLUIDS UNTIL AFTER CT.
[2020-03-15] MEDS: ondansetron HCL 4 MG/2 ML VIAL IVPUSH (21:05)
[2020-03-15 21:35] LABS: ~Lactic Acid-LAB USE ONLY 2.3 mmol/L (0.5-2.0)
[2020-03-15 21:42] LABS: Troponin-I High Sensitivity 7.2 ng/L (<3.5-17.0)
--- NOTE | 2020-03-15 21:47 | PC.NURSE ---
RIGHT AC IV INFILTRATED. IV REMOVED AND BLOOD TRANSFUSION SWITCHED TO 22G IN LEFT HAND. TRANSFUSING WITHOUT DIFFICULTY. HEMATOMA NOTED TO RIGHT AC AT THIS TIME. WARM BLANKET APPLIED TO AREA.
--- NOTE | 2020-03-15 22:19 | P.HPCC_ITS ---
History of Present Illness Date of Service: 03/15/20 Chief Complaint: Weakness The patient is a 44-year-old female with a past medical history of DVTs, pulmonary embolism ( on Coumadin ), epilepsy, cervical cancer, bipolar disorder, peptic ulcer disease, fibromyalgia, asthma, dissociative disorder, depression, morbid obesity with history of gastric bypass and reversal. She presented to the emergency department complaining of weakness. In the ED she reported frequent falls in the past few weeks, with possible LOC, abdominal pain, nausea, and diarrhea. She also had menorrhagia x 2 weeks. She did report subjective fevers and chills. In the emergency department, tachycardic, SBP ranging from 90s to 110s. Afebrile, 100% on room air. Laboratory data significant for WBC 23.1, hemoglobin 3.9, hematocrit 13, PT 320, INR >26, potassium 3.2, bicarb 21, BUN 15, creatinine 1.17, lactic acid 2.6, AST 75, ALT 34, total protein 4.5, albumin 2.6. Imaging: Chest x-ray: no acute findings Head CT with no acute pathology Abdomen/pelvis CT- distended bladder and asymmetric enlargement of the left ps oas muscle suggesting an retroperitoneal intramuscular left psoas hematoma In the ED she received 1.5 L of fluids, ceftriaxone 1 g, and vitamin K. RBCs and FFP see order Will be admitted to the ICU for closely hemodynamic monitoring Review of Systems Constitutional: Constitutional: Reports chills ENT: Reports dizziness Cardiovascular: Cardiovascular: Reports lightheadedness, Reports Loss of Consciousness and Reports dyspnea on exertion Respiratory: Respiratory: Reports cough and Reports dyspnea on exertion Gastrointestinal: Gastrointestinal: Reports abdominal pain, Reports change in bowel habits, Reports diarrhea and Reports nausea Genitourinary: Genitourinary: Reports urinary frequency Musculoskeletal: Musculoskeletal: Reports myalgias, Reports arthralgias and Reports muscle weakness Neurologic: Reports dizziness Hematologic/Lymphatic: Hematologic/Lymphatic: Reports as per [facility] Past Medical History Medical History Cervical cancer COPD (chronic obstructive pulmonary disease) Deep vein thrombosis Heart failure Herniated disc Neuropathy Pacemaker Pulmonary embolism Stomach cancer Date of last menstrual period: 03/01/20 Patient : No Family History Family history: reviewed and not pertinent Surgical History Surgical History Gastric bypass status for obesity Hx of cholecystectomy Social History Social History Alcohol intake: never Smoking Status: Current every day smoker Smoked in Last 30 Days: Yes Use of substances other than those prescribed or required for medical reasons: Yes Substance Use Type: Marijuana Substance Use Frequency: Occasionally Last Used Substance: Unknown Advance Directives: No Advance Directives Information Provided: Yes Meds Allergies Allergy/AdvReac Type Severity Reaction Status Date / Time bee pollen [Bee Stings] Allergy Severe ANAPHYLAXIS Verified 03/15/20 23:45 mushroom Allergy Severe ANAPHYLAXIS Verified 03/15/20 23:45 aspirin Allergy Unknown BLEED Verified 03/15/20 23:45 Bleach (Sodium Hypochlorite) Allergy Unknown RASH Verified 03/15/20 23:45 [BLEACH (SODIUM HYPOCHLORITE)] lactose [Lactose] Allergy Unknown STOMACH Verified 03/15/20 23:45 ACHE morphine [Morphine] Allergy Unknown ITCHING Verified 03/15/20 23:45 ibuprofen AdvReac Unknown Stomach Verified 03/15/20 23:45 Upset NSAIDS (Non-Steroidal AdvReac Unknown BLEED,COUMA Verified 03/15/20 23:45 Anti-Inflamma DIN [Nsaids] Home Medications Medication Instructions Recorded Confirmed Type [id number] 1 tab PO DAILY PRN 03/15/20 History diazepam 1 tab PO BEDTIME 03/15/20 History dicyclomine 1 tab PO QID 03/15/20 History esomeprazole magnesium 1 cap PO BID 03/15/20 History hydroxyzine pamoate 1 cap PO TID PRN 03/15/20 History ipratropium-albuterol [Combivent 1 puff PO QID 03/15/20 History Respimat] lamotrigine 1 tab PO BID 03/15/20 History lamotrigine 1 tab PO DAILY 03/15/20 History loratadine 1 tab PO DAILY 03/15/20 History methocarbamol 2 tab PO BID 03/15/20 History olanzapine 1 tab PO BEDTIME 03/15/20 History ondansetron HCl 1 tab PO TID PRN 03/15/20 History prazosin 1 cap PO BEDTIME 03/15/20 History pregabalin 1 cap PO TID 03/15/20 History sucralfate 10 ml PO QIDWMHS 03/15/20 History topiramate 100 mg PO DAILY 03/15/20 History topiramate 200 mg PO BEDTIME 03/15/20 History warfarin 10 mg PO SUTUTHSA@1800 03/15/20 History warfarin 15 mg PO MOWEFR@1800 03/15/20 History zonisamide 1 cap PO BID 03/15/20 History Physical Exam Vital Signs: Vital Signs: Last Vital Signs Temp 97.8 F 03/15/20 20:15 Pulse 117 H 03/15/20 20:15 Resp 20 03/15/20 20:15 BP 102/57 L 03/15/20 20:15 Pulse Ox 99 03/15/20 20:02 Body Mass Index 46.5 Const: General: lethargic (Only able to answer minimal questions) Orientation/consciousness: lethargic (Only able to answer minimal questions) Eyes: Pupils: Equal, round and reactive pupils present Neck: Neck: Yes supple and Yes no JVD Resp: Effort & Inspection: normal respiratory effort and Actively coughing Auscultation: clear to auscultation bilaterally Cardio: Rate: tachycardic Heart sounds: S1 normal heart sound present and S2 normal heart sound present Peripheral pulses: Peripheral pulses 2+ throughout GI: Inspection: Yes distended Palpation (GI): Soft to palpation, Tenderness to palpation present (GI) in the LLQ and in the RLQ and Hernia present Auscultation: normal bowel sounds Skin: General skin exam: no rashes or lesions noted Neuro: Cranial nerves: Yes Equal, round and reactive pupils present Extrem: General: Yes no pedal edema Results Labs CBC and Chem 7: 03/15/20 17:37 03/15/20 17:37 Labs: Laboratory Results - last 24 hr 03/15/20 03/15/20 03/15/20 15:43 17:37 17:37 MCV 59.4 L MCH 17.8 L MCHC 30.0 L RDW 22.5 H Plt Count 211 D MPV 9.9 Immature Gran % (Auto) 2.7 H Neut % (Auto) 80.7 H Lymph % (Auto) 9.7 L Reynolds % (Auto) 6.8 Eos % (Auto) 0.0 Baso % (Auto) 0.1 Lymph # (Auto) 2.3 Reynolds # (Auto) 1.6 H Eos # (Auto) 0.0 Baso # (Auto) 0.0 Abs Immat Gran (auto) 0.62 H Absolute Neuts (auto) 18.6 H Absolute Nucleated RBC 0.150 H Nucleated RBC % (auto) 0.6 H Smear Tech's Comments VERIFIED Hold Purple Top PT INR APTT D-Dimer Anion Gap Estim Creat Clear Calc Estimated GFR Random Glucose Lactic Acid 2.6 H* Lactic Acid Fup @ 2Hr Calcium Magnesium Total Bilirubin Direct Bilirubin AST ALT Alkaline Phosphatase Troponin I High Sens Total Protein Albumin Lipase Stool Occult Blood Ethyl Alcohol Coronavirus (PCR) NEGATIVE Influenza Type A (PCR) NEGATIVE Influenza Type B (PCR) NEGATIVE RSV RNA Qual (PCR) NEGATIVE Blood Type Antibody Screen Crossmatch 03/15/20 03/15/20 03/15/20 17:37 17:37 17:38 MCV MCH MCHC RDW Plt Count MPV Immature Gran % (Auto) Neut % (Auto) Lymph % (Auto) Reynolds % (Auto) Eos % (Auto) Baso % (Auto) Lymph # (Auto) Reynolds # (Auto) Eos # (Auto) Baso # (Auto) Abs Immat Gran (auto) Absolute Neuts (auto) Absolute Nucleated RBC Nucleated RBC % (auto) Smear Tech's Comments Hold Purple Top SEE NOTE PT > 320.0 H D INR > 26.0 H* D APTT > 200.0 H* D-Dimer 242 Anion Gap 13 Estim Creat Clear Calc 81.4 Estimated GFR 50 Random Glucose 113 Lactic Acid Lactic Acid Fup @ 2Hr Calcium 7.0 L D Magnesium 2.1 Total Bilirubin 0.6 Direct Bilirubin 0.4 AST 75 H ALT 34 H Alkaline Phosphatase 104 Troponin I High Sens Total Protein 4.5 L Albumin 2.6 L Lipase 10 Stool Occult Blood Ethyl Alcohol Coronavirus (PCR) Influenza Type A (PCR) Influenza Type B (PCR) RSV RNA Qual (PCR) Blood Type Antibody Screen Crossmatch 03/15/20 03/15/20 03/15/20 17:38 17:38 18:34 MCV MCH MCHC RDW Plt Count MPV Immature Gran % (Auto) Neut % (Auto) Lymph % (Auto) Reynolds % (Auto) Eos % (Auto) Baso % (Auto) Lymph # (Auto) Reynolds # (Auto) Eos # (Auto) Baso # (Auto) Abs Immat Gran (auto) Absolute Neuts (auto) Absolute Nucleated RBC Nucleated RBC % (auto) Smear Tech's Comments Hold Purple Top PT INR APTT D-Dimer Anion Gap Estim Creat Clear Calc Estimated GFR Random Glucose Lactic Acid Lactic Acid Fup @ 2Hr Calcium Magnesium Total Bilirubin Direct Bilirubin AST ALT Alkaline Phosphatase Troponin I High Sens 7.8 Total Protein Albumin Lipase Stool Occult Blood Ethyl Alcohol < 10 Coronavirus (PCR) Influenza Type A (PCR) Influenza Type B (PCR) RSV RNA Qual (PCR) Blood Type O Positive Antibody Screen NEGATIVE Crossmatch See Detail 03/15/20 03/15/20 03/15/20 18:36 21:03 21:03 MCV MCH MCHC RDW Plt Count MPV Immature Gran % (Auto) Neut % (Auto) Lymph % (Auto) Reynolds % (Auto) Eos % (Auto) Baso % (Auto) Lymph # (Auto) Reynolds # (Auto) Eos # (Auto) Baso # (Auto) Abs Immat Gran (auto) Absolute Neuts (auto) Absolute Nucleated RBC Nucleated RBC % (auto) Smear Tech's Comments Hold Purple Top PT INR APTT D-Dimer Anion Gap Estim Creat Clear Calc Estimated GFR Random Glucose Lactic Acid Lactic Acid Fup @ 2Hr 2.3 H* Calcium Magnesium Total Bilirubin Direct Bilirubin AST ALT Alkaline Phosphatase Troponin I High Sens 7.2 Total Protein Albumin Lipase Stool Occult Blood POS Ethyl Alcohol Coronavirus (PCR) Influenza Type A (PCR) Influenza Type B (PCR) RSV RNA Qual (PCR) Blood Type Antibody Screen Crossmatch Imaging Radiologist's Impressions: Impressions Chest X-Ray 03/15/20 00:00 IMPRESSION: No consolidating pneumonia. Head CT 03/15/20 16:21 IMPRESSION: No acute intracranial pathology. Abdomen/Pelvis CT 03/15/20 19:11 IMPRESSION: Asymmetric enlargement of the left psoas muscle suggesting an retroperitoneal intramuscular left psoas hematoma. Recommend clinical correlation The urinary bladder is significantly distended. If the patient can't void spontaneously a Welch catheter may be helpful. Assessment and Plan (1) Acute blood loss anemia: Status: Acute (2) Hematoma of left psoas region to anticoagulant therapy: Status: Acute Neuro: Lethargic, likely related to acute blood loss. Should resolve with replacement of RBCs. Cardiac: Elevated lactate, tachycardia and low BP likely related to acute blood loss anemia rather then severe sepsis/ infection Pulmonary: No acute issues Renal: DOC- Creatinine 1.17 today was 0.85 in 12/16/19. This is most likely hypoperfusion. 1.5 liter received in ED. Will receive RBCs this should be sufficient for fluid resuscitation. Continue to check renal indices and urine output. Endo: No acute issues. GI: Coagulopathy: INR >26, PT 320. She is on coumadin at home, but is unable to tell me last time and how much coumadin she has been on. Received vit K in ED. Will transfuse x 4 FFPs. Left psoas hematoma - CT abdomen showing a likely left psoas hematoma, this is likely related to anticoagulant. No significant neurological impairment at this time. Will continue to monitor closely for worsening Heme/Onc: Acute blood loss Anemia: H&H 3.9/13 today. Likely due to menorrhagia/ Left psoas hematoma . Will cont with blood product replacement. Repeat CBC when receive x 3pRBC. Will transfuse for < 7. ID: Leukocystosis likely from hemoconcentration/low H&H rather than severe sepsis/infection. She did received ceftriaxone in ED. Will continue to monitor Psych: No acute issues. Diet: NPO Prophylaxis: Compression devices// IV Protonix for GI prophylaxis Code status: FULL CODE. Critical care time: x 90 min of critical care time (3) Vaginal bleeding: Status: Acute (4) DOC (acute kidney injury): Status: Acute (5) Constipation: Status: Acute (6) Hypokalemia: Status: Acute (7) Elevated INR: Status: Acute
[2020-03-15 23:07] LABS: Reflex Lactate? 2 Y
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
[2020-03-15 23:51] LABS: Glucose Urine UA NEG (NEG); Leukocyte Esterase Urine NEG (NEG); Nitrite Urine NEG (NEG); Urine Blood NEG (NEG); Urine Ketones NEG (NEG); Urine Protein NEG (NEG-TRACE)
[2020-03-15] MEDS: lamoTRIgine 100 MG TABLET 125 MG PO (23:51)
[2020-03-15] MEDS: Topiramate 100 MG TABLET 200 MG PO (23:52)
[2020-03-15] MEDS: Lactulose 20 GM/30 ML SOLUTION 30 GM PO (23:53)
[2020-03-15 23:55] LABS: Appearance Urine CLEAR; Color Urine YELLOW
[2020-03-16] VITALS (41 sets, daily range): BP systolic 96–122; BP diastolic 46–75; PULSE 81–110; RESP 16–25; TEMP 36.4–37.5; O2SAT 97–100; BMI 43.8; BMI 45.5
--- NOTE | 2020-03-16 00:23 | PC.NURSE ---
NURSE TO NURSE GIVEN TO TRINI RN IN ICU.
[2020-03-16 00:33] LABS: Amphetamine Screen Urine Not Detected (Not Detect); Barbiturates, Urine POSITIVE (Not Detect); Benzodiazepines Screen Urine POSITIVE (Not Detect); Cannabinoid Screen Urine Not Detected (Not Detect); Cocaine Screen Urine Not Detected (Not Detect); Opiate Screen Urine Not Detected (Not Detect); Phencyclidine Screen Urine Not Detected (Not Detect)
[2020-03-16 00:44] LABS: ~Lactic Acid-LAB USE ONLY 1.9 mmol/L (0.5-2.0)
[2020-03-16] MEDS: Lactulose 20 GM/30 ML SOLUTION 30 GM PO (04:29)
--- NOTE | 2020-03-16 04:44 | PC.NURSE ---
ADMIT TO 252-1 FROM ER...DROWSY..AROUSES TO VERBAL STIMULI...VAGUE RESPONSES TO MANY QUESTIONS...SAO2 99-100% ON ROOM AIR..NO DISTRESS...SBP 90'S-110'S...MULTIPLE BRUISES TO BILATERAL ARMS..#22 angio/prn adaptor left hand non-functional...MULTIPLE ATTEMPTS BY MULTIP[LE RN'S AT IV ACCESS UNSUCCESFUL..ICU EXPLOSIVE TECHNICIAN PRESENT AND AWARE..NO CENTRAL LINE AT PRESENT D/T PT/PTT...#20 ANGIO/PRN ADAPTOR STARTED TO RIGHT ANKLE PER ICU EXPLOSIVE TECHNICIAN...TRANSFUSING FFP/PRBC PER TAR...FOR IV KCL POST-TRANSFUSIONS...FOR AM LABWORK PER CPOE POST-TRTANSFUSIONS PER EXPLOSIVE TECHNICIAN...S.TACH HR 100'S...SCHEDULED LACTULOSE GIVEN...WET COUGH AFTER RECEIPT...CURRENTLY DOZING...FFP ORDERS (X4) COMP[LETE...PRBC'S INFUSING
[2020-03-16] MEDS: Pantoprazole Sodium 40 MG/10 ML VIAL IVPUSH (05:21)
[2020-03-16] MEDS: Potassium Chloride/H20 10 MEQ/100 ML PIGGYBACK 100 MEQ IV ×2 (06:23→07:46)
[2020-03-16] MEDS: Calcium Gluconate/NaCl,Iso-Osm 2 GM/100 ML PLAST..BAG IV ×2 (06:32→12:29)
[2020-03-16 06:37] LABS: Base Excess VBG 1.5 mmol/L; HCO3 VBG 25 mmol/L; Oxygen Saturation VBG 79.7 %; PCO2 VBG 36 mmhg; PO2 VBG 39 mmhg; pH VBG 7.47 (7.32-7.43)
[2020-03-16 06:45] LABS: INTERNATIONAL NORM RATIO 1.3 (0.9-1.1); Prothrombin Time 15.7 SEC (10.8-13.0)
[2020-03-16 06:51] LABS: Basophils Percent Auto 0.1 % (0-2); Eosinophils Percent Auto 0.1 % (0-4); MANUAL DIFF FLAG SCAN; Mean Corpuscular HGB Conc 31.9 g/dl (31.0-35.0); Mean Corpuscular Volume 72.3 fL (80-98); Red Blood Count 2.56 X10*6/uL (4.20-5.50); SCAN SMEAR FLAG 1
[2020-03-16 06:53] LABS: Imm Gran Abs Auto 0.34 X10*3/uL (0.00-0.03); Imm Gran Pct Auto 2.3 % (0.0-0.4); Lymphocytes Absolute Auto 1.9 X10*3/uL (1.2-4.9); Lymphocytes Percent Auto 12.4 % (20-40); Mean Platelet Volume 9.7 fL (9.4-12.3); Monocytes Absolute Auto 1.2 X10*3/uL (0.1-1.2); Monocytes Percent Auto 8.1 % (2-11); NRBC Pct Auto 0.7 /100WBC (0.0-0.2); Neutrophils Absolute Auto 11.5 X10*3/uL (2.0-8.3); Platelet Count 134 X10*3/uL (160-400); White Blood Count 14.9 X10*3/uL (4.8-10.8)
[2020-03-16 07:22] LABS: PLT ABN DIST 1
[2020-03-16 07:24] LABS: Hemoglobin 5.9 g/dl (12.0-16.0)
[2020-03-16 07:25] LABS: Hematocrit 18.5 % (37-47)
[2020-03-16 07:36] LABS: Alanine Aminotransferase 27 U/L (0-31); Albumin Level 2.8 g/dL (3.5-5.0); Alkaline Phosphatase 93 U/L (39-117); Anion Gap 12 (12-20); Aspartate Amino Transferase 56 U/L (5-31); Bilirubin Total 0.9 mg/dL (0.0-1.0); Blood Urea Nitrogen 14 mg/dL (9-16); Calcium 6.9 mg/dL (8.4-10.2); Carbon Dioxide 22 mmol/L (22-29); Chloride 110 mmol/L (96-108); Creatinine Clr Calc Pharmacy 104.4; Estimated Glomerular Filt Rate > 60; Glucose Random 104 mg/dL (60-115); Magnesium 2.1 mg/dL (1.6-2.6); Potassium 2.9 mmol/l (3.3-5.1); Sodium 141 mmol/L (135-145); Total Protein 4.9 g/dL (6.5-8.0)
[2020-03-16 07:49] LABS: SLIDE REVIEW VERIFIED
[2020-03-16 08:32] LABS: Phosphorus 3.1 mg/dL (2.7-4.5)
[2020-03-16] MEDS: HYDROmorphone HCl 0.5 MG/0.5 ML SYRINGE IVPUSH ×2 (09:28→21:16)
[2020-03-16] MEDS: Potassium Chloride Packet 20 MEQ PACKET 40 MEQ PO (09:29)
--- NOTE | 2020-03-16 09:56 | MHC.CM.PN ---
pt lives c her fiance who is also her supervisor blood in their apt. she reports that she uses a walker c ambulation. she is disabled. pt reports that she use to have [facility] svcs and would like them again on dc for nsg and PT. a ref. for this has been made to [facility] per pt's request. pt will have her brother or to be - sister in law provide transportation at dc as they live in the area. dc plan is home c supervisor blood/fiance and vna. cm to cont. to follow.
--- NOTE | 2020-03-16 11:07 | PC.NURSE ---
Pt a&o x3, reports 10/10 all over body pain, medicated with one time dose dilaudid per order, pt awake, asking to use phone, educated on meds that were administered, finished potassium dose as PO med per MD, IV patent in R ankle and R arm, 1 unit RBC transfusing at this time, pneumatic boot on L leg, not on R leg d/t blood transfusing, pt reports vag bleeding due to menstrual cycle. Pt updated her family on plan of care, will cont to monitor, boo intact, draining without issue.
[2020-03-16] MEDS: hydrOXYzine HCL 25 MG TABLET PO (13:51)
[2020-03-16] MEDS: Sucralfate Oral Suspension 1 GM/10 ML ORAL.SUSP PO ×2 (13:51→16:59)
[2020-03-16] MEDS: ondansetron HCL 4 MG/2 ML VIAL IVPUSH (13:51)
[2020-03-16] MEDS: Butalb/Acetamin/Caff 50/325/40 TABLET 1 TAB PO (13:52)
[2020-03-16] MEDS: Albuterol/Iprat 2.5/0.5MG 3 ML AMPUL.NEB INHALE ×2 (13:53→19:59)
--- NOTE | 2020-03-16 14:01 | P.PNCC_ITS ---
Subjective Subjective Date of Service: 03/16/20 Interval History: Old lady with underlying history of DVT/PE on Coumadin, cardiomyopathy status post ppm placement, epilepsy, cervical cancer, asthma, morbid obesity status post bypass and reversal, fibromyalgia, bipolar disorder, dissociative disorder admitted on 03/15/2020 with weakness, falls, and menometrorrhagia resulting in hemorrhagic shock, subacute blood loss anemia, acute kidney injury, left psoas hemorrhage, and coagulopathy. Patient admission hemoglobin of 3.9 and INR greater than 26. She has been started on blood product support and admitted to intensive care unit. Also noted urinary retention with significant bladder distention with drainage of 1.6 L of urine after placement of the Welch catheter No events overnight. Patient hemodynamics stabilized with blood product resuscitation. Her coagulopathy resolved with administration of vitamin K and FFP. Physical Exam Vital Signs: Vital Signs: Last Vital Signs Temp 98.4 F 03/16/20 12:54 Pulse 85 03/16/20 13:54 Resp 20 03/16/20 13:00 BP 109/63 03/16/20 13:00 Pulse Ox 98 03/16/20 13:00 Body Mass Index 43.8 Const: General: no acute distress, alert and awake Nutritional Appearance: obese Eyes: Sclerae: sclerae normal EOM: EOMs intact bilaterally Neck: Neck: Yes no lymphadenopathy, Yes trachea midline and Yes supple Resp: Effort & Inspection: normal respiratory effort and no respiratory distress Auscultation: clear to auscultation bilaterally Cardio: Rate: regular rate Rhythm: regular rhythm Heart sounds: no gallops, no murmurs and no rubs GI: Palpation (GI): Soft to palpation and Other GI palpation findings present ( Nontender) Auscultation: normal bowel sounds Extrem: General: No clubbing, No cyanosis and Yes edema (Trace bilateral) Objective Data Labs CBC & Chem 7: 03/16/20 06:28 03/16/20 06:27 Labs: Laboratory Results - last 24 hr 03/15/20 03/15/20 03/15/20 15:43 17:37 17:37 WBC 23.1 H RBC 2.19 L D Hgb 3.9 L* D Hct 13.0 L* D MCV 59.4 L MCH 17.8 L MCHC 30.0 L RDW 22.5 H Plt Count 211 D MPV 9.9 Immature Gran % (Auto) 2.7 H Neut % (Auto) 80.7 H Lymph % (Auto) 9.7 L Evangeline % (Auto) 6.8 Eos % (Auto) 0.0 Baso % (Auto) 0.1 Lymph # (Auto) 2.3 Evangeline # (Auto) 1.6 H Eos # (Auto) 0.0 Baso # (Auto) 0.0 Abs Immat Gran (auto) 0.62 H Absolute Neuts (auto) 18.6 H Absolute Nucleated RBC 0.150 H Nucleated RBC % (auto) 0.6 H Smear Tech's Comments VERIFIED Hold Purple Top PT INR APTT D-Dimer VBG pH VBG pCO2 VBG pO2 VBG HCO3 VBG O2 Saturation VBG Base Excess Sodium Potassium Chloride Carbon Dioxide Anion Gap BUN Creatinine Estim Creat Clear Calc Estimated GFR Random Glucose Lactic Acid 2.6 H* Lactic Acid Fup @ 2Hr Lactic Acid Fup @ 4Hr Calcium Phosphorus Magnesium Total Bilirubin Direct Bilirubin AST ALT Alkaline Phosphatase Troponin I High Sens Total Protein Albumin Lipase Urine Color Urine Appearance Urine pH Ur Specific [place] Urine Protein Urine Glucose (UA) Urine Ketones Urine Blood Urine Nitrite Ur Leukocyte Esterase Stool Occult Blood Urine Opiates Screen Ur Barbiturates Screen Ur Phencyclidine Scrn Ur Amphetamines Screen U Benzodiazepines Scrn Urine Cocaine Screen U Marijuana (THC) Screen Ethyl Alcohol Coronavirus (PCR) NEGATIVE Influenza Type A (PCR) NEGATIVE Influenza Type B (PCR) NEGATIVE RSV RNA Qual (PCR) NEGATIVE Blood Type Antibody Screen Crossmatch 03/15/20 03/15/20 03/15/20 17:37 17:37 17:38 WBC RBC Hgb Hct MCV MCH MCHC RDW Plt Count MPV Immature Gran % (Auto) Neut % (Auto) Lymph % (Auto) Evangeline % (Auto) Eos % (Auto) Baso % (Auto) Lymph # (Auto) Evangeline # (Auto) Eos # (Auto) Baso # (Auto) Abs Immat Gran (auto) Absolute Neuts (auto) Absolute Nucleated RBC Nucleated RBC % (auto) Smear Tech's Comments Hold Purple Top SEE NOTE PT > 320.0 H D INR > 26.0 H* D APTT > 200.0 H* D-Dimer 242 VBG pH VBG pCO2 VBG pO2 VBG HCO3 VBG O2 Saturation VBG Base Excess Sodium 138 Potassium 3.2 L Chloride 107 Carbon Dioxide 21 L Anion Gap 13 BUN 15 D Creatinine 1.17 Estim Creat Clear Calc 81.4 Estimated GFR 50 Random Glucose 113 Lactic Acid Lactic Acid Fup @ 2Hr Lactic Acid Fup @ 4Hr Calcium 7.0 L D Phosphorus Magnesium 2.1 Total Bilirubin 0.6 Direct Bilirubin 0.4 AST 75 H ALT 34 H Alkaline Phosphatase 104 Troponin I High Sens Total Protein 4.5 L Albumin 2.6 L Lipase 10 Urine Color Urine Appearance Urine pH Ur Specific [place] Urine Protein Urine Glucose (UA) Urine Ketones Urine Blood Urine Nitrite Ur Leukocyte Esterase Stool Occult Blood Urine Opiates Screen Ur Barbiturates Screen Ur Phencyclidine Scrn Ur Amphetamines Screen U Benzodiazepines Scrn Urine Cocaine Screen U Marijuana (THC) Screen Ethyl Alcohol Coronavirus (PCR) Influenza Type A (PCR) Influenza Type B (PCR) RSV RNA Qual (PCR) Blood Type Antibody Screen Crossmatch 03/15/20 03/15/20 03/15/20 17:38 17:38 18:34 WBC RBC Hgb Hct MCV MCH MCHC RDW Plt Count MPV Immature Gran % (Auto) Neut % (Auto) Lymph % (Auto) Evangeline % (Auto) Eos % (Auto) Baso % (Auto) Lymph # (Auto) Evangeline # (Auto) Eos # (Auto) Baso # (Auto) Abs Immat Gran (auto) Absolute Neuts (auto) Absolute Nucleated RBC Nucleated RBC % (auto) Smear Tech's Comments Hold Purple Top PT INR APTT D-Dimer VBG pH VBG pCO2 VBG pO2 VBG HCO3 VBG O2 Saturation VBG Base Excess Sodium Potassium Chloride Carbon Dioxide Anion Gap BUN Creatinine Estim Creat Clear Calc Estimated GFR Random Glucose Lactic Acid Lactic Acid Fup @ 2Hr Lactic Acid Fup @ 4Hr Calcium Phosphorus Magnesium Total Bilirubin Direct Bilirubin AST ALT Alkaline Phosphatase Troponin I High Sens 7.8 Total Protein Albumin Lipase Urine Color Urine Appearance Urine pH Ur Specific [place] Urine Protein Urine Glucose (UA) Urine Ketones Urine Blood Urine Nitrite Ur Leukocyte Esterase Stool Occult Blood Urine Opiates Screen Ur Barbiturates Screen Ur Phencyclidine Scrn Ur Amphetamines Screen U Benzodiazepines Scrn Urine Cocaine Screen U Marijuana (THC) Screen Ethyl Alcohol < 10 Coronavirus (PCR) Influenza Type A (PCR) Influenza Type B (PCR) RSV RNA Qual (PCR) Blood Type O Positive Antibody Screen NEGATIVE Crossmatch See Detail 03/15/20 03/15/20 03/15/20 18:36 21:03 21:03 WBC RBC Hgb Hct MCV MCH MCHC RDW Plt Count MPV Immature Gran % (Auto) Neut % (Auto) Lymph % (Auto) Evangeline % (Auto) Eos % (Auto) Baso % (Auto) Lymph # (Auto) Evangeline # (Auto) Eos # (Auto) Baso # (Auto) Abs Immat Gran (auto) Absolute Neuts (auto) Absolute Nucleated RBC Nucleated RBC % (auto) Smear Tech's Comments Hold Purple Top PT INR APTT D-Dimer VBG pH VBG pCO2 VBG pO2 VBG HCO3 VBG O2 Saturation VBG Base Excess Sodium Potassium Chloride Carbon Dioxide Anion Gap BUN Creatinine Estim Creat Clear Calc Estimated GFR Random Glucose Lactic Acid Lactic Acid Fup @ 2Hr 2.3 H* Lactic Acid Fup @ 4Hr Calcium Phosphorus Magnesium Total Bilirubin Direct Bilirubin AST ALT Alkaline Phosphatase Troponin I High Sens 7.2 Total Protein Albumin Lipase Urine Color Urine Appearance Urine pH Ur Specific [place] Urine Protein Urine Glucose (UA) Urine Ketones Urine Blood Urine Nitrite Ur Leukocyte Esterase Stool Occult Blood POS Urine Opiates Screen Ur Barbiturates Screen Ur Phencyclidine Scrn Ur Amphetamines Screen U Benzodiazepines Scrn Urine Cocaine Screen U Marijuana (THC) Screen Ethyl Alcohol Coronavirus (PCR) Influenza Type A (PCR) Influenza Type B (PCR) RSV RNA Qual (PCR) Blood Type Antibody Screen Crossmatch 03/15/20 03/15/20 03/16/20 23:40 23:40 00:23 WBC RBC Hgb Hct MCV MCH MCHC RDW Plt Count MPV Immature Gran % (Auto) Neut % (Auto) Lymph % (Auto) Evangeline % (Auto) Eos % (Auto) Baso % (Auto) Lymph # (Auto) Evangeline # (Auto) Eos # (Auto) Baso # (Auto) Abs Immat Gran (auto) Absolute Neuts (auto) Absolute Nucleated RBC Nucleated RBC % (auto) Smear Tech's Comments Hold Purple Top PT INR APTT D-Dimer VBG pH VBG pCO2 VBG pO2 VBG HCO3 VBG O2 Saturation VBG Base Excess Sodium Potassium Chloride Carbon Dioxide Anion Gap BUN Creatinine Estim Creat Clear Calc Estimated GFR Random Glucose Lactic Acid Lactic Acid Fup @ 2Hr Lactic Acid Fup @ 4Hr 1.9 Calcium Phosphorus Magnesium Total Bilirubin Direct Bilirubin AST ALT Alkaline Phosphatase Troponin I High Sens Total Protein Albumin Lipase Urine Color YELLOW Urine Appearance CLEAR Urine pH 6.0 Ur Specific [place] 1.020 Urine Protein NEG Urine Glucose (UA) NEG Urine Ketones NEG Urine Blood NEG Urine Nitrite NEG Ur Leukocyte Esterase NEG Stool Occult Blood Urine Opiates Screen Not Detected Ur Barbiturates Screen POSITIVE H Ur Phencyclidine Scrn Not Detected Ur Amphetamines Screen Not Detected U Benzodiazepines Scrn POSITIVE H Urine Cocaine Screen Not Detected U Marijuana (THC) Screen Not Detected Ethyl Alcohol Coronavirus (PCR) Influenza Type A (PCR) Influenza Type B (PCR) RSV RNA Qual (PCR) Blood Type Antibody Screen Crossmatch 03/16/20 03/16/20 03/16/20 06:27 06:27 06:27 WBC RBC Hgb Hct MCV MCH MCHC RDW Plt Count MPV Immature Gran % (Auto) Neut % (Auto) Lymph % (Auto) Evangeline % (Auto) Eos % (Auto) Baso % (Auto) Lymph # (Auto) Evangeline # (Auto) Eos # (Auto) Baso # (Auto) Abs Immat Gran (auto) Absolute Neuts (auto) Absolute Nucleated RBC Nucleated RBC % (auto) Smear Tech's Comments Hold Purple Top PT INR APTT D-Dimer VBG pH 7.47 H VBG pCO2 36 VBG pO2 39 VBG HCO3 25 VBG O2 Saturation 79.7 VBG Base Excess 1.5 Sodium 141 Potassium 2.9 L Chloride 110 H Carbon Dioxide 22 Anion Gap 12 BUN 14 Creatinine 0.88 Estim Creat Clear Calc 104.4 Estimated GFR > 60 Random Glucose 104 Lactic Acid Lactic Acid Fup @ 2Hr Lactic Acid Fup @ 4Hr Calcium 6.9 L Phosphorus 3.1 Magnesium 2.1 Total Bilirubin 0.9 Direct Bilirubin AST 56 H ALT 27 Alkaline Phosphatase 93 Troponin I High Sens Total Protein 4.9 L Albumin 2.8 L Lipase Urine Color Urine Appearance Urine pH Ur Specific [place] Urine Protein Urine Glucose (UA) Urine Ketones Urine Blood Urine Nitrite Ur Leukocyte Esterase Stool Occult Blood Urine Opiates Screen Ur Barbiturates Screen Ur Phencyclidine Scrn Ur Amphetamines Screen U Benzodiazepines Scrn Urine Cocaine Screen U Marijuana (THC) Screen Ethyl Alcohol Coronavirus (PCR) Influenza Type A (PCR) Influenza Type B (PCR) RSV RNA Qual (PCR) Blood Type Antibody Screen Crossmatch 03/16/20 03/16/20 06:28 06:28 WBC 14.9 H RBC 2.56 L Hgb 5.9 L* D Hct 18.5 L* D MCV 72.3 L D MCH 23.0 L MCHC 31.9 RDW Not Reportable Plt Count 134 L D MPV 9.7 Immature Gran % (Auto) 2.3 H Neut % (Auto) 77.0 H Lymph % (Auto) 12.4 L Evangeline % (Auto) 8.1 Eos % (Auto) 0.1 Baso % (Auto) 0.1 Lymph # (Auto) 1.9 Evangeline # (Auto) 1.2 Eos # (Auto) 0.0 Baso # (Auto) 0.0 Abs Immat Gran (auto) 0.34 H Absolute Neuts (auto) 11.5 H Absolute Nucleated RBC 0.110 H Nucleated RBC % (auto) 0.7 H Smear Tech's Comments VERIFIED Hold Purple Top PT 15.7 H D INR 1.3 H APTT D-Dimer VBG pH VBG pCO2 VBG pO2 VBG HCO3 VBG O2 Saturation VBG Base Excess Sodium Potassium Chloride Carbon Dioxide Anion Gap BUN Creatinine Estim Creat Clear Calc Estimated GFR Random Glucose Lactic Acid Lactic Acid Fup @ 2Hr Lactic Acid Fup @ 4Hr Calcium Phosphorus Magnesium Total Bilirubin Direct Bilirubin AST ALT Alkaline Phosphatase Troponin I High Sens Total Protein Albumin Lipase Urine Color Urine Appearance Urine pH Ur Specific [place] Urine Protein Urine Glucose (UA) Urine Ketones Urine Blood Urine Nitrite Ur Leukocyte Esterase Stool Occult Blood Urine Opiates Screen Ur Barbiturates Screen Ur Phencyclidine Scrn Ur Amphetamines Screen U Benzodiazepines Scrn Urine Cocaine Screen U Marijuana (THC) Screen Ethyl Alcohol Coronavirus (PCR) Influenza Type A (PCR) Influenza Type B (PCR) RSV RNA Qual (PCR) Blood Type Antibody Screen Crossmatch Progress Note: A&P Assessment and plan (1) Vaginal bleeding: Status: Acute Assessment and Plan: Assessment: 44-year-old lady with underlying history of DVT/PE on antico agulation and cardiomyopathy status post pacemaker admitted with hemorrhagic shock secondary to subacute blood loss anemia with coagulopathy, left psoas hemorrhage, acute kidney injury, urinary retention and menometrorrhagia Neuro: No acute issues. Underlying history of seizures, continue Lamotrigine and topiramate. Cardiac: No acute issues. Underlying history of pacemaker placement. Pulmonary: No acute issues. Underlying history of asthma. Renal: Acute kidney injury secondary to hemorrhagic shock, improved with blood product resuscitation. Urinary retention with drainage of 1.60 to of urine after Welch placement. Endo: No acute issues. GI: No acute issues. ID: No acute issues Heme/Onc: Hemorrhagic shock secondary to subacute blood loss anemia secondary to menometrorrhagia on background of anticoagulation therapy, resolved after blood product resuscitation. Left psoas hemorrhage secondary to coagulopathy, continue with conservative management. Continue to monitor hemoglobin level. Transfusion threshold of 7. Coagulopathy with elevated INR, resolved with FFP administration. Psych: No acute issues. Miscellaneous: No acute issues. Prophylaxis: Pneumatic compression Diet: Regular Critical care time spent: 45 minutes (2) Acute blood loss anemia: Status: Acute (3) Hematoma of left psoas region to anticoagulant therapy: Status: Acute (4) DOC (acute kidney injury): Status: Acute (5) Elevated INR: Status: Acute (6) Hemorrhagic shock: Status: Acute (7) Urinary retention: Status: Acute Time Spent With Patient Total time spent with greater than 50% in coordination of care (as documented) at patient's floor/unit and/or counseling patient:: 0 Critical Care Time 45
[2020-03-16] MEDS: Calcium Carbonate 750 MG TAB.CHEW PO (14:51)
[2020-03-16] MEDS: Acetaminophen 325 MG TABLET 650 MG PO (16:59)
[2020-03-16] MEDS: Dicyclomine HCl 10 MG CAPSULE PO ×2 (16:59→21:14)
[2020-03-16] MEDS: Pregabalin 200 MG CAPSULE PO ×2 (16:59→21:14)
[2020-03-16 17:27] LABS: Basophils Percent Auto 0.1 % (0-2); Eosinophils Percent Auto 0.3 % (0-4); Hemoglobin 8.7 g/dl (12.0-16.0); MANUAL DIFF FLAG SCAN; Neutrophils Percent Auto 73.5 % (45-73); Platelet Count 102 X10*3/uL (160-400); Red Cell Distribution Width 26.5 % (11.0-16.0); SCAN SMEAR FLAG 1
[2020-03-16 17:28] LABS: Hematocrit 26.3 % (37-47); Imm Gran Pct Auto 2.5 % (0.0-0.4); Lymphocytes Absolute Auto 2.6 X10*3/uL (1.2-4.9); Lymphocytes Percent Auto 16.2 % (20-40); Mean Corpuscular HGB Conc 33.1 g/dl (31.0-35.0); Mean Corpuscular Hemoglobin 25.4 pg (27.0-33.0); Mean Corpuscular Volume 76.7 fL (80-98); Monocytes Absolute Auto 1.2 X10*3/uL (0.1-1.2); Monocytes Percent Auto 7.4 % (2-11); Neutrophils Absolute Auto 11.7 X10*3/uL (2.0-8.3); Red Blood Count 3.43 X10*6/uL (4.20-5.50); White Blood Count 15.9 X10*3/uL (4.8-10.8)
[2020-03-16 17:48] LABS: PLT ABN DIST 1
[2020-03-16 17:49] LABS: NRBC Pct Auto 1.3 /100WBC (0.0-0.2); SLIDE REVIEW VERIFIED
[2020-03-16] MEDS: diazePAM 10 MG TABLET PO (21:12)
[2020-03-16] MEDS: lamoTRIgine 100 MG TABLET PO (21:13)
[2020-03-16] MEDS: Zonisamide 100 MG CAPSULE PO (21:14)
[2020-03-16] MEDS: OLANZapine 7.5 MG TABLET 15 MG PO (21:14)
[2020-03-16] MEDS: Topiramate 100 MG TABLET 200 MG PO (21:15)
[2020-03-16] MEDS: Prazosin HCL 1 MG CAPSULE 2 MG PO (21:15)
[2020-03-17] VITALS (9 sets, daily range): BP systolic 103–117; BP diastolic 63–75; PULSE 83–107; RESP 17–25; TEMP 35.8–37.2; O2SAT 97–100; BMI 43.6
[2020-03-17 05:55] LABS: Hemoglobin 8.2 g/dl (12.0-16.0); Lymphocytes Percent Auto 15.3 % (20-40); MANUAL DIFF FLAG SCAN; NRBC Pct Auto 0.9 /100WBC (0.0-0.2); SCAN SMEAR FLAG 1
[2020-03-17 05:56] LABS: Basophils Percent Auto 0.1 % (0-2); Eosinophils Absolute Auto 0.1 X10*3/uL (0.0-0.4); Eosinophils Percent Auto 0.4 % (0-4); Hematocrit 25.3 % (37-47); Imm Gran Abs Auto 0.33 X10*3/uL (0.00-0.03); Imm Gran Pct Auto 2.7 % (0.0-0.4); Lymphocytes Absolute Auto 1.9 X10*3/uL (1.2-4.9); Mean Corpuscular HGB Conc 32.4 g/dl (31.0-35.0); Mean Corpuscular Hemoglobin 24.9 pg (27.0-33.0); Mean Corpuscular Volume 76.9 fL (80-98); Mean Platelet Volume 9.6 fL (9.4-12.3); Monocytes Absolute Auto 0.8 X10*3/uL (0.1-1.2); Monocytes Percent Auto 6.6 % (2-11); Neutrophils Absolute Auto 9.1 X10*3/uL (2.0-8.3); Neutrophils Percent Auto 74.9 % (45-73); Red Blood Count 3.29 X10*6/uL (4.20-5.50); Red Cell Distribution Width 26.6 % (11.0-16.0); White Blood Count 12.2 X10*3/uL (4.8-10.8)
[2020-03-17 05:57] LABS: PLT ABN DIST 1; Platelet Count 96 X10*3/uL (160-400)
[2020-03-17 06:20] LABS: Anion Gap 9 (12-20); Blood Urea Nitrogen 11 mg/dL (9-16); Calcium 7.3 mg/dL (8.4-10.2); Carbon Dioxide 25 mmol/L (22-29); Chloride 111 mmol/L (96-108); Creatinine Clr Calc Pharmacy 124.2; Estimated Glomerular Filt Rate > 60; Glucose Random 92 mg/dL (60-115); Potassium 3.4 mmol/l (3.3-5.1); Sodium 142 mmol/L (135-145)
[2020-03-17 06:43] LABS: SLIDE REVIEW VERIFIED
[2020-03-17] MEDS: Albuterol/Iprat 2.5/0.5MG 3 ML AMPUL.NEB INHALE ×4 (07:48→19:15)
[2020-03-17] MEDS: lamoTRIgine 100 MG TABLET PO ×2 (08:33→21:00)
[2020-03-17] MEDS: lamoTRIgine 25 MG TABLET PO (08:33)
[2020-03-17] MEDS: Topiramate 100 MG TABLET PO (08:33)
[2020-03-17] MEDS: Dicyclomine HCl 10 MG CAPSULE PO ×4 (08:33→21:00)
[2020-03-17] MEDS: Loratadine 10 MG TABLET PO (08:33)
[2020-03-17] MEDS: Zonisamide 100 MG CAPSULE PO ×2 (08:33→21:00)
[2020-03-17] MEDS: Pantoprazole Sodium 40 MG/10 ML VIAL IVPUSH (08:37)
[2020-03-17 08:55] LABS: INTERNATIONAL NORM RATIO 1.1 (0.9-1.1)
[2020-03-17] MEDS: oxyCODONE HCl Immed Release 5 MG TABLET 2.5 MG PO ×2 (11:35→17:50)
[2020-03-17] MEDS: Pregabalin 200 MG CAPSULE PO ×3 (11:35→21:00)
[2020-03-17] MEDS: Sucralfate Oral Suspension 1 GM/10 ML ORAL.SUSP PO ×3 (11:36→22:42)
[2020-03-17] MEDS: Butalb/Acetamin/Caff 50/325/40 TABLET 1 TAB PO (13:55)
--- NOTE | 2020-03-17 15:57 | P.PNIM_ITS ---
Subjective Subjective Date of Service: 03/17/20 Interval History: the patient was seen and evaluated this morning Laying in bed, feels disc comfortable, reporting pain all over her body Denies any fever, chills or shortness of breath No bleeding reported overnight No reported other overnight events. Systemic review: No fever, chills or weakness No chest pain, palpitation No shortness of breath or coughing No abdominal pain, nausea or vomiting No urinary symptoms No any rash or wounds Physical Exam Vital Signs: Vital Signs: Last Vital Signs Temp 97.5 F 03/17/20 11:19 Pulse 91 03/17/20 13:45 Resp 20 03/17/20 11:19 BP 117/75 03/17/20 11:19 Pulse Ox 99 03/17/20 11:19 Body Mass Index 43.6 Constitutional : Alert, oriented, not in distress Neck : Normal inspection, Supple Cardiovascular : RRR, S1 S2, no lower extremity edema Respiratory : Good bilateral air entry, no crackles, wheezes or rhonchi Gastrointestinal: soft, lax, Normal bowel sounds, Non tender Skin : Warm/Dry, No rash Neurological : Alert & oriented x3, No focal deficit Objective Data Current Medications Generic Name Dose Route Start Last Admin Trade Name Freq PRN Reason Stop Dose Admin Acetaminophen 650 mg 03/16/20 13:50 03/16/20 16:59 Acetaminophen 325 Mg Tablet PO 650 mg Q6H PRN Administration Pain, Mild (Pain Scale 1-3) Acetaminophen/Butalbital/Caffeine 1 tab 03/16/20 12:59 03/17/20 13:55 Butalb/Acetamin/Caff 50/325/40 Tablet PO 1 tab DAILY PRN Administration Headache Albuterol/Ipratropium 3 ml 03/16/20 14:00 03/17/20 13:43 Albuterol/Iprat 2.5/0.5mg 3 Ml Ampul.Neb INHALE 3 ml RQ6H WHILE AWAKE CARROL Administration Calcium Carbonate 750 mg 03/16/20 13:50 03/16/20 14:51 Calcium Carbonate 750 Mg Tab.Chew PO 750 mg Q4H PRN Administration Heartburn Diazepam 10 mg 03/16/20 21:00 03/16/20 21:12 Diazepam 10 Mg Tablet PO 10 mg BEDTIME CARROL Administration Dicyclomine HCl 10 mg 03/16/20 16:30 03/17/20 11:35 Dicyclomine Hcl 10 Mg Capsule PO 10 mg QIDACHS CARROL Administration Hydroxyzine HCl 25 mg 03/16/20 13:01 03/16/20 13:51 Hydroxyzine Hcl 25 Mg Tablet PO 25 mg Q6H PRN Administration anxiety/restlessness Lamotrigine 25 mg 03/17/20 09:00 03/17/20 08:33 Lamotrigine 25 Mg Tablet PO 25 mg DAILY CARROL Administration Lamotrigine 100 mg 03/16/20 21:00 03/17/20 08:33 Lamotrigine 100 Mg Tablet PO 100 mg BID CARROL Administration Loratadine 10 mg 03/17/20 09:00 03/17/20 08:33 Loratadine 10 Mg Tablet PO 10 mg DAILY CARROL Administration Olanzapine 15 mg 03/16/20 21:00 03/16/20 21:14 Olanzapine 7.5 Mg Tablet PO 15 mg BEDTIME CARROL Administration Ondansetron HCl 4 mg 03/15/20 22:17 03/16/20 13:51 Ondansetron Hcl 4 Mg/2 Ml Vial IVPUSH 4 mg Q6H PRN Administration Nausea and Vomiting Oxycodone HCl 2.5 mg 03/17/20 10:27 03/17/20 11:35 Oxycodone Hcl Immed Release 5 Mg Tablet PO 2.5 mg Q6H PRN Administration Pain, Severe (Pain Scale 7-10) Pantoprazole Sodium 40 mg 03/16/20 06:30 03/17/20 08:37 Pantoprazole Sodium 40 Mg/10 Ml Vial IVPUSH 40 mg DAILY@0630 [facility] Administration Pharmacy Consult 1 each 03/15/20 18:07 Consult Rx Perform Med Rec MISCELLANE ONCE PRN Consult order Pharmacy Consult 1 each 03/15/20 19:13 Consult Rx Perform Med Rec MISCELLANE ONCE PRN Consult order Prazosin HCl 2 mg 03/16/20 21:00 03/16/20 21:15 Prazosin Hcl 1 Mg Capsule PO 2 mg BEDTIME CARROL Administration Protocol Pregabalin 200 mg 03/16/20 15:00 03/17/20 11:35 Pregabalin 200 Mg Capsule PO 200 mg TID CARROL Administration Sucralfate 1 gm 03/16/20 17:00 03/17/20 11:36 Sucralfate Oral Suspension 1 Gm/10 Ml Oral.Susp PO 1 gm QIDWMHS CARROL Administration Topiramate 100 mg 03/17/20 09:00 03/17/20 08:33 Topiramate 100 Mg Tablet PO 100 mg DAILY CARROL Administration Topiramate 200 mg 03/16/20 21:00 03/16/20 21:15 Topiramate 100 Mg Tablet PO 200 mg BEDTIME CARROL Administration Warfarin Sodium 10 mg 03/17/20 18:00 Warfarin Sodium 10 Mg Tablet PO DAILY@1800 [facility] Zonisamide 100 mg 03/16/20 21:00 03/17/20 08:33 Zonisamide 100 Mg Capsule PO 100 mg BID CARROL Administration Labs CBC & Chem 7: 03/17/20 05:39 03/17/20 05:39 Microbiology Microbiology Results: Microbiology 03/15/20 23:40 Urine Catheterized - Welch Catheter Urine Culture - Final No growth. 03/15/20 17:37 Blood - Venous Blood Culture - Preliminary No growth after 24 hours. 03/15/20 17:39 Blood - Venous Blood Culture - Preliminary No growth after 24 hours. Assessment and Plan (1) Vaginal bleeding: Status: Acute (2) Acute blood loss anemia: Status: Acute (3) Hematoma of left psoas region to anticoagulant therapy: Status: Acute (4) DOC (acute kidney injury): Status: Acute (5) Elevated INR: Status: Acute (6) Hemorrhagic shock: Status: Acute (7) Urinary retention: Status: Acute Assessment and Plan: 44-year-old lady with underlying history of DVT/PE on anticoagulation and cardiomyopathy status post pacemaker admitted with hemorrhagic shock secondary to subacute blood loss anemia with coagulopathy, left psoas hemorrhage, acute kidney injury, urinary retention and menometrorrhagia Hemorrhagic shock secondary to subacute blood loss anemia secondary to menometrorrhagia on background of anticoagulation therapy INR back to 1 Monitor H&H, stable around 8 Restart warfarin and monitor for bleeding History of seizure continue Lamotrigine and topiramate. Acute kidney injury secondary to hemorrhagic shock, improved with blood product resuscitation Creatinine improved to 0.7 next [place] continue to monitor Urinary retention drainage of 1.60 to of urine after Welch placement. Discontinue Welch today Monitor intake and output Left psoas hemorrhage secondary to coagulopathy, continue with conservative management To repeat CT scan tomorrow morning Prophylaxis: Pneumatic compression
[2020-03-17] MEDS: Warfarin Sodium 10 MG TABLET PO (17:09)
[2020-03-17] MEDS: OLANZapine 7.5 MG TABLET 15 MG PO (21:00)
[2020-03-17] MEDS: Prazosin HCL 1 MG CAPSULE 2 MG PO (21:00)
[2020-03-17] MEDS: Topiramate 100 MG TABLET 200 MG PO (21:00)
[2020-03-17] MEDS: diazePAM 10 MG TABLET PO (21:00)
[2020-03-17] MEDS: Acetaminophen 325 MG TABLET 650 MG PO (21:06)
[2020-03-18] VITALS: BP 108/63; PULSE 97; RESP 19; TEMP 36.8; O2SAT 95
[2020-03-18 03:54] VITALS: BP 115/70; PULSE 86; RESP 19; TEMP 36.8; O2SAT 99
[2020-03-18] MEDS: Butalb/Acetamin/Caff 50/325/40 TABLET 1 TAB PO (03:58)
[2020-03-18] MEDS: Pantoprazole Sodium 40 MG/10 ML VIAL IVPUSH (05:35)
[2020-03-18 06:00] VITALS: BMI 43.7
[2020-03-18 06:46] LABS: INTERNATIONAL NORM RATIO 1.1 (0.9-1.1); Prothrombin Time 12.9 SEC (10.8-13.0)
[2020-03-18 07:14] LABS: Anion Gap 14 (12-20); Blood Urea Nitrogen 9 mg/dL (9-16); Calcium 7.2 mg/dL (8.4-10.2); Carbon Dioxide 21 mmol/L (22-29); Chloride 111 mmol/L (96-108); Creatinine Clr Calc Pharmacy 122.4; Estimated Glomerular Filt Rate > 60; Glucose Random 110 mg/dL (60-115); Potassium 3.7 mmol/l (3.3-5.1); Sodium 142 mmol/L (135-145)
[2020-03-18 07:32] VITALS: BP 137/59; PULSE 86; RESP 20; TEMP 36.4; O2SAT 100
[2020-03-18 07:35] LABS: Hematocrit 28.5 % (37-47); Hemoglobin 8.8 g/dl (12.0-16.0); Mean Corpuscular HGB Conc 30.9 g/dl (31.0-35.0); NRBC Pct Auto 0.4 /100WBC (0.0-0.2); PLT CLUMP 1; Red Blood Count 3.52 X10*6/uL (4.20-5.50)
[2020-03-18 07:47] LABS: Platelet Count 74 X10*3/uL (160-400)
--- NOTE | 2020-03-18 08:00 | CT_ITS ---
EXAMINATION: CT ABDOMEN AND PELVIS WITHOUT CONTRAST CLINICAL INFORMATION: Follow-up psoas muscle hematoma COMPARISON: CT of March 15, 2020 and March 28, 2019 TECHNIQUE: Multidetector volumetric imaging was performed from the superior aspect of the liver through the pubic symphysis. Sagittal and coronal reformatted images were obtained on the technologist's workstation. This CT examination was performed using dose optimization techniques as appropriate, variously including the following: *Automated exposure control *Adjustment of mA and/or kV according to patient size (this includes techniques or standardized protocols for targeted exams where dose is matched to indication/reason for exam; i.e. extremities or head) *Use of iterative reconstruction technique DLP: 980 mGy-cm FINDINGS: LUNG BASES: There is groundglass disease seen within the lingula. No pleural or pericardial effusion. Pacemaker in place. LIVER, GALLBLADDER, AND BILIARY TREE: The liver is normal in size, shape, and attenuation. No focal hepatic lesion or biliary ductal dilatation is present. Status post cholecystectomy. PANCREAS: Unremarkable. SPLEEN: Unremarkable. ADRENAL GLANDS: Unremarkable. KIDNEYS AND URETERS: The kidneys are normal in size, shape, and attenuation. No hydronephrosis, hydroureter, or calculi seen. No perinephric stranding. BLADDER: Unremarkable. GASTROINTESTINAL TRACT: No dilated loops of large small bowel are evident. There is a small hiatal hernia. Patient status post previous gastric bypass surgery. No free air or free fluid. ABDOMINAL WALL: Surgical clips are seen about the anterior right subcutaneous tissues in pelvic wall. About the left pelvic subcutaneous fat there is soft tissue streaking present consistent with some hematoma. No increased density collection is seen to suggest acute hemorrhage. LYMPH NODES: No lymphadenopathy appreciated. VASCULAR: No abdominal aortic aneurysm. PELVIC VISCERA: The left psoas muscle is slightly more prominent than the right but without obvious hematoma or significant adjacent fluid collection. OSSEOUS STRUCTURES: No suspicious destructive bony lesion identified. CT/CT abdomen pelvis wo con IMPRESSION: Improved appearance of left psoas muscle without evidence of interval increase in hemorrhage. Region of groundglass disease within the lingula which may be related to atelectasis or pneumonitis.
[2020-03-18] MEDS: oxyCODONE HCl Immed Release 5 MG TABLET 2.5 MG PO (09:03)
[2020-03-18] MEDS: Topiramate 100 MG TABLET PO (09:04)
[2020-03-18] MEDS: lamoTRIgine 100 MG TABLET PO (09:04)
[2020-03-18] MEDS: lamoTRIgine 25 MG TABLET PO (09:05)
[2020-03-18] MEDS: Dicyclomine HCl 10 MG CAPSULE PO ×2 (09:05→12:06)
[2020-03-18] MEDS: Loratadine 10 MG TABLET PO (09:05)
[2020-03-18] MEDS: Pregabalin 200 MG CAPSULE PO (09:05)
[2020-03-18] MEDS: Zonisamide 100 MG CAPSULE PO (09:05)
[2020-03-18] MEDS: Sucralfate Oral Suspension 1 GM/10 ML ORAL.SUSP PO ×2 (09:07→12:09)
[2020-03-18] MEDS: hydrOXYzine HCL 25 MG TABLET PO (09:21)
[2020-03-18 11:45] VITALS: BP 114/73; PULSE 85; RESP 20; TEMP 36.6; O2SAT 100
--- NOTE | 2020-03-18 11:56 | MHC.CM.PN ---
Patient has been medically cleared for dc to home today, with [facility]. A referral had been made to NA, who is aware of today's dc. Second IMM addressed with Patient and original has been given to her and a copy has been placed on the chart.Patient is very pleased to be going home today.
--- NOTE | 2020-03-18 13:18 | P.DS_ITS ---
DS: Providers Provider Date of Service: 03/18/20 Date of admission: 03/15/20 20:36 Primary care physician: Unknown Physician DS: Diagnosis Discharge Diagnosis (1) Vaginal bleeding: Status: Acute (2) Acute blood loss anemia: Status: Acute (3) Hematoma of left psoas region to anticoagulant therapy: Status: Acute (4) DOC (acute kidney injury): Status: Acute (5) Elevated INR: Status: Acute (6) Hemorrhagic shock: Status: Acute (7) Urinary retention: Status: Acute DS: Medications Discharge Medications Home Medications: Home Medications Medication Instructions Recorded Confirmed Combivent Respimat 1 puff PO QID 03/15/20 03/16/20 hsxaufiyvl-tldykgrlguiwz-wuec 1 tab PO DAILY PRN 03/15/20 03/16/20 diazepam 1 tab PO BEDTIME 03/15/20 03/16/20 dicyclomine 1 tab PO QID 03/15/20 03/16/20 esomeprazole magnesium 1 cap PO BID 03/15/20 03/16/20 hydroxyzine pamoate 1 cap PO TID PRN 03/15/20 03/16/20 lamotrigine 1 tab PO BID 03/15/20 03/16/20 lamotrigine 1 tab PO DAILY 03/15/20 03/16/20 loratadine 1 tab PO DAILY 03/15/20 03/16/20 methocarbamol 2 tab PO BID 03/15/20 03/16/20 olanzapine 1 tab PO BEDTIME 03/15/20 03/16/20 ondansetron HCl 1 tab PO TID PRN 03/15/20 03/16/20 prazosin 1 cap PO BEDTIME 03/15/20 03/16/20 pregabalin 1 cap PO TID 03/15/20 03/16/20 sucralfate 10 ml PO QIDWMHS 03/15/20 03/16/20 topiramate 100 mg PO DAILY 03/15/20 03/16/20 topiramate 200 mg PO BEDTIME 03/15/20 03/16/20 zonisamide 1 cap PO BID 03/15/20 03/16/20 Previous Rx's Medication Instructions Recorded oxycodone 5 mg PO Q6-8H PRN #12 tab 03/18/20 warfarin 10 mg PO DAILY@1700 #0 tab 03/18/20 DS: Summary Hospital Course Hospital Course: Admission note HPI The patient is a 44-year-old female with a past medical history of DVTs, pulmonary embolism ( on Coumadin ), epilepsy, cervical cancer, bipolar disorder, peptic ulcer disease, fibromyalgia, asthma, dissociative disorder, depression, morbid obesity with history of gastric bypass and reversal. She presented to the emergency department complaining of weakness. In the ED she reported frequent falls in the past few weeks, with possible LOC, abdominal pain, nausea, and diarrhea. She also had menorrhagia x 2 weeks. She did report subjective fevers and chills. In the emergency department, tachycardic, SBP ranging from 90s to 110s. Afebrile, 100% on room air. Laboratory data significant for WBC 23.1, hemoglobin 3.9, hematocrit 13, PT 320, INR >26, potassium 3.2, bicarb 21, BUN 15, creatinine 1.17, lactic acid 2.6, AST 75, ALT 34, total protein 4.5, albumin 2.6. Hospital course The patient was admitted to the ICU for treatment of hemorrhagic shock secondary to subacute blood loss anemia as a result of coagulopathy of INR above 26. She did receive fresh frozen plasma, vitamin K and blood transfusion. Her hemoglobin at time of presentation was 3.9. Improved to 8.7 during the hospital stay after blood transfusion of 3 units. No bleeding was mainly vaginal as she has been going through her period this month. No further bleeding noted during the hospital stay as warfarin was restarted but INR remained around 1. She was noted to have urine retention at time of presentation. Drained 1.6 L when a Welch was placed. The Welch was removed the day before discharge and she was able to pass urine with no complaints. Noted to have kidney injury as well at time of presentation which improved back to normal baseline. Left psoas muscle hematoma noted on CT scan. A repeated CT scan a day of discharge showed shrinkage of the hematoma with no bleeding reported. To be discharged home on a lower dose of warfarin of 10 mg daily instead of 10 and 15 alternative. Will follow INR closely and repeat CBC in 1 week. To follow-up with PCP after discharge. Time Spent with Patient Time attestation: Total time spent providing and/or coordinating discharge services: Discharge coordination time: Greater than 30 minutes Physical Exam Vital Signs: Vital Signs: Last Vital Signs Temp 97.8 F 03/18/20 11:45 Pulse 85 03/18/20 11:45 Resp 20 03/18/20 11:45 BP 114/73 03/18/20 11:45 Pulse Ox 100 03/18/20 11:45 Body Mass Index 43.7 Constitutional : Alert, oriented, not in distress Neck : Normal inspection, Supple Cardiovascular : RRR, S1 S2, no lower extremity edema Respiratory : Good bilateral air entry, no crackles, wheezes or rhonchi Gastrointestinal: soft, lax, Normal bowel sounds, Non tender Skin : Warm/Dry, No rash Neurological : Alert & oriented x3, No focal deficit DS: Data Data Completed and Pending Labs on day of discharge: Laboratory Tests 03/15/20 03/15/20 03/15/20 15:43 17:37 17:37 WBC 23.1 H RBC 2.19 L D Hgb 3.9 L* D Hct 13.0 L* D MCV 59.4 L MCH 17.8 L MCHC 30.0 L RDW 22.5 H Plt Count 211 D MPV 9.9 Immature Gran % (Auto) 2.7 H Neut % (Auto) 80.7 H Lymph % (Auto) 9.7 L Franklin % (Auto) 6.8 Eos % (Auto) 0.0 Baso % (Auto) 0.1 Lymph # (Auto) 2.3 Franklin # (Auto) 1.6 H Eos # (Auto) 0.0 Baso # (Auto) 0.0 Abs Immat Gran (auto) 0.62 H Absolute Neuts (auto) 18.6 H Absolute Nucleated RBC 0.150 H Nucleated RBC % (auto) 0.6 H Smear Tech's Comments VERIFIED Smear Path Review SEE NOTE Hold Purple Top PT INR APTT D-Dimer VBG pH VBG pCO2 VBG pO2 VBG HCO3 VBG O2 Saturation VBG Base Excess Sodium Potassium Chloride Carbon Dioxide Anion Gap BUN Creatinine Estim Creat Clear Calc Estimated GFR Random Glucose Lactic Acid 2.6 H* Lactic Acid Fup @ 2Hr Lactic Acid Fup @ 4Hr Calcium Phosphorus Magnesium Total Bilirubin Direct Bilirubin AST ALT Alkaline Phosphatase Troponin I High Sens Total Protein Albumin Lipase Urine Color Urine Appearance Urine pH Ur Specific Vantage Urine Protein Urine Glucose (UA) Urine Ketones Urine Blood Urine Nitrite Ur Leukocyte Esterase Stool Occult Blood Urine Opiates Screen Ur Barbiturates Screen Ur Phencyclidine Scrn Ur Amphetamines Screen U Benzodiazepines Scrn Urine Cocaine Screen U Marijuana (THC) Screen Ethyl Alcohol Coronavirus (PCR) NEGATIVE Influenza Type A (PCR) NEGATIVE Influenza Type B (PCR) NEGATIVE RSV RNA Qual (PCR) NEGATIVE Blood Type Antibody Screen Crossmatch 03/15/20 03/15/20 03/15/20 17:37 17:37 17:38 WBC RBC Hgb Hct MCV MCH MCHC RDW Plt Count MPV Immature Gran % (Auto) Neut % (Auto) Lymph % (Auto) Franklin % (Auto) Eos % (Auto) Baso % (Auto) Lymph # (Auto) Franklin # (Auto) Eos # (Auto) Baso # (Auto) Abs Immat Gran (auto) Absolute Neuts (auto) Absolute Nucleated RBC Nucleated RBC % (auto) Smear Tech's Comments Smear Path Review Hold Purple Top SEE NOTE PT > 320.0 H D INR > 26.0 H* D APTT > 200.0 H* D-Dimer 242 VBG pH VBG pCO2 VBG pO2 VBG HCO3 VBG O2 Saturation VBG Base Excess Sodium 138 Potassium 3.2 L Chloride 107 Carbon Dioxide 21 L Anion Gap 13 BUN 15 D Creatinine 1.17 Estim Creat Clear Calc 81.4 Estimated GFR 50 Random Glucose 113 Lactic Acid Lactic Acid Fup @ 2Hr Lactic Acid Fup @ 4Hr Calcium 7.0 L D Phosphorus Magnesium 2.1 Total Bilirubin 0.6 Direct Bilirubin 0.4 AST 75 H ALT 34 H Alkaline Phosphatase 104 Troponin I High Sens Total Protein 4.5 L Albumin 2.6 L Lipase 10 Urine Color Urine Appearance Urine pH Ur Specific Vantage Urine Protein Urine Glucose (UA) Urine Ketones Urine Blood Urine Nitrite Ur Leukocyte Esterase Stool Occult Blood Urine Opiates Screen Ur Barbiturates Screen Ur Phencyclidine Scrn Ur Amphetamines Screen U Benzodiazepines Scrn Urine Cocaine Screen U Marijuana (THC) Screen Ethyl Alcohol Coronavirus (PCR) Influenza Type A (PCR) Influenza Type B (PCR) RSV RNA Qual (PCR) Blood Type Antibody Screen Crossmatch 03/15/20 03/15/20 03/15/20 17:38 17:38 18:34 WBC RBC Hgb Hct MCV MCH MCHC RDW Plt Count MPV Immature Gran % (Auto) Neut % (Auto) Lymph % (Auto) Franklin % (Auto) Eos % (Auto) Baso % (Auto) Lymph # (Auto) Franklin # (Auto) Eos # (Auto) Baso # (Auto) Abs Immat Gran (auto) Absolute Neuts (auto) Absolute Nucleated RBC Nucleated RBC % (auto) Smear Tech's Comments Smear Path Review Hold Purple Top PT INR APTT D-Dimer VBG pH VBG pCO2 VBG pO2 VBG HCO3 VBG O2 Saturation VBG Base Excess Sodium Potassium Chloride Carbon Dioxide Anion Gap BUN Creatinine Estim Creat Clear Calc Estimated GFR Random Glucose Lactic Acid Lactic Acid Fup @ 2Hr Lactic Acid Fup @ 4Hr Calcium Phosphorus Magnesium Total Bilirubin Direct Bilirubin AST ALT Alkaline Phosphatase Troponin I High Sens 7.8 Total Protein Albumin Lipase Urine Color Urine Appearance Urine pH Ur Specific Vantage Urine Protein Urine Glucose (UA) Urine Ketones Urine Blood Urine Nitrite Ur Leukocyte Esterase Stool Occult Blood Urine Opiates Screen Ur Barbiturates Screen Ur Phencyclidine Scrn Ur Amphetamines Screen U Benzodiazepines Scrn Urine Cocaine Screen U Marijuana (THC) Screen Ethyl Alcohol < 10 Coronavirus (PCR) Influenza Type A (PCR) Influenza Type B (PCR) RSV RNA Qual (PCR) Blood Type O Positive Antibody Screen NEGATIVE Crossmatch See Detail 03/15/20 03/15/20 03/15/20 18:36 21:03 21:03 WBC RBC Hgb Hct MCV MCH MCHC RDW Plt Count MPV Immature Gran % (Auto) Neut % (Auto) Lymph % (Auto) Franklin % (Auto) Eos % (Auto) Baso % (Auto) Lymph # (Auto) Franklin # (Auto) Eos # (Auto) Baso # (Auto) Abs Immat Gran (auto) Absolute Neuts (auto) Absolute Nucleated RBC Nucleated RBC % (auto) Smear Tech's Comments Smear Path Review Hold Purple Top PT INR APTT D-Dimer VBG pH VBG pCO2 VBG pO2 VBG HCO3 VBG O2 Saturation VBG Base Excess Sodium Potassium Chloride Carbon Dioxide Anion Gap BUN Creatinine Estim Creat Clear Calc Estimated GFR Random Glucose Lactic Acid Lactic Acid Fup @ 2Hr 2.3 H* Lactic Acid Fup @ 4Hr Calcium Phosphorus Magnesium Total Bilirubin Direct Bilirubin AST ALT Alkaline Phosphatase Troponin I High Sens 7.2 Total Protein Albumin Lipase Urine Color Urine Appearance Urine pH Ur Specific Vantage Urine Protein Urine Glucose (UA) Urine Ketones Urine Blood Urine Nitrite Ur Leukocyte Esterase Stool Occult Blood POS Urine Opiates Screen Ur Barbiturates Screen Ur Phencyclidine Scrn Ur Amphetamines Screen U Benzodiazepines Scrn Urine Cocaine Screen U Marijuana (THC) Screen Ethyl Alcohol Coronavirus (PCR) Influenza Type A (PCR) Influenza Type B (PCR) RSV RNA Qual (PCR) Blood Type Antibody Screen Crossmatch 03/15/20 03/15/20 03/16/20 23:40 23:40 00:23 WBC RBC Hgb Hct MCV MCH MCHC RDW Plt Count MPV Immature Gran % (Auto) Neut % (Auto) Lymph % (Auto) Franklin % (Auto) Eos % (Auto) Baso % (Auto) Lymph # (Auto) Franklin # (Auto) Eos # (Auto) Baso # (Auto) Abs Immat Gran (auto) Absolute Neuts (auto) Absolute Nucleated RBC Nucleated RBC % (auto) Smear Tech's Comments Smear Path Review Hold Purple Top PT INR APTT D-Dimer VBG pH VBG pCO2 VBG pO2 VBG HCO3 VBG O2 Saturation VBG Base Excess Sodium Potassium Chloride Carbon Dioxide Anion Gap BUN Creatinine Estim Creat Clear Calc Estimated GFR Random Glucose Lactic Acid Lactic Acid Fup @ 2Hr Lactic Acid Fup @ 4Hr 1.9 Calcium Phosphorus Magnesium Total Bilirubin Direct Bilirubin AST ALT Alkaline Phosphatase Troponin I High Sens Total Protein Albumin Lipase Urine Color YELLOW Urine Appearance CLEAR Urine pH 6.0 Ur Specific Vantage 1.020 Urine Protein NEG Urine Glucose (UA) NEG Urine Ketones NEG Urine Blood NEG Urine Nitrite NEG Ur Leukocyte Esterase NEG Stool Occult Blood Urine Opiates Screen Not Detected Ur Barbiturates Screen POSITIVE H Ur Phencyclidine Scrn Not Detected Ur Amphetamines Screen Not Detected U Benzodiazepines Scrn POSITIVE H Urine Cocaine Screen Not Detected U Marijuana (THC) Screen Not Detected Ethyl Alcohol Coronavirus (PCR) Influenza Type A (PCR) Influenza Type B (PCR) RSV RNA Qual (PCR) Blood Type Antibody Screen Crossmatch 03/16/20 03/16/20 03/16/20 06:27 06:27 06:27 WBC RBC Hgb Hct MCV MCH MCHC RDW Plt Count MPV Immature Gran % (Auto) Neut % (Auto) Lymph % (Auto) Franklin % (Auto) Eos % (Auto) Baso % (Auto) Lymph # (Auto) Franklin # (Auto) Eos # (Auto) Baso # (Auto) Abs Immat Gran (auto) Absolute Neuts (auto) Absolute Nucleated RBC Nucleated RBC % (auto) Smear Tech's Comments Smear Path Review Hold Purple Top PT INR APTT D-Dimer VBG pH 7.47 H VBG pCO2 36 VBG pO2 39 VBG HCO3 25 VBG O2 Saturation 79.7 VBG Base Excess 1.5 Sodium 141 Potassium 2.9 L Chloride 110 H Carbon Dioxide 22 Anion Gap 12 BUN 14 Creatinine 0.88 Estim Creat Clear Calc 104.4 Estimated GFR > 60 Random Glucose 104 Lactic Acid Lactic Acid Fup @ 2Hr Lactic Acid Fup @ 4Hr Calcium 6.9 L Phosphorus 3.1 Magnesium 2.1 Total Bilirubin 0.9 Direct Bilirubin AST 56 H ALT 27 Alkaline Phosphatase 93 Troponin I High Sens Total Protein 4.9 L Albumin 2.8 L Lipase Urine Color Urine Appearance Urine pH Ur Specific Vantage Urine Protein Urine Glucose (UA) Urine Ketones Urine Blood Urine Nitrite Ur Leukocyte Esterase Stool Occult Blood Urine Opiates Screen Ur Barbiturates Screen Ur Phencyclidine Scrn Ur Amphetamines Screen U Benzodiazepines Scrn Urine Cocaine Screen U Marijuana (THC) Screen Ethyl Alcohol Coronavirus (PCR) Influenza Type A (PCR) Influenza Type B (PCR) RSV RNA Qual (PCR) Blood Type Antibody Screen Crossmatch 03/16/20 03/16/20 03/16/20 06:28 06:28 17:07 WBC 14.9 H 15.9 H RBC 2.56 L 3.43 L D Hgb 5.9 L* D 8.7 L D Hct 18.5 L* D 26.3 L D MCV 72.3 L D 76.7 L MCH 23.0 L 25.4 L MCHC 31.9 33.1 RDW Not Reportable 26.5 H Plt Count 134 L D 102 L MPV 9.7 Not Reportable Immature Gran % (Auto) 2.3 H 2.5 H Neut % (Auto) 77.0 H 73.5 H Lymph % (Auto) 12.4 L 16.2 L Franklin % (Auto) 8.1 7.4 Eos % (Auto) 0.1 0.3 Baso % (Auto) 0.1 0.1 Lymph # (Auto) 1.9 2.6 Franklin # (Auto) 1.2 1.2 Eos # (Auto) 0.0 0.0 Baso # (Auto) 0.0 0.0 Abs Immat Gran (auto) 0.34 H 0.40 H Absolute Neuts (auto) 11.5 H 11.7 H Absolute Nucleated RBC 0.110 H 0.200 H Nucleated RBC % (auto) 0.7 H 1.3 H Smear Tech's Comments VERIFIED VERIFIED Smear Path Review Hold Purple Top PT 15.7 H D INR 1.3 H APTT D-Dimer VBG pH VBG pCO2 VBG pO2 VBG HCO3 VBG O2 Saturation VBG Base Excess Sodium Potassium Chloride Carbon Dioxide Anion Gap BUN Creatinine Estim Creat Clear Calc Estimated GFR Random Glucose Lactic Acid Lactic Acid Fup @ 2Hr Lactic Acid Fup @ 4Hr Calcium Phosphorus Magnesium Total Bilirubin Direct Bilirubin AST ALT Alkaline Phosphatase Troponin I High Sens Total Protein Albumin Lipase Urine Color Urine Appearance Urine pH Ur Specific Vantage Urine Protein Urine Glucose (UA) Urine Ketones Urine Blood Urine Nitrite Ur Leukocyte Esterase Stool Occult Blood Urine Opiates Screen Ur Barbiturates Screen Ur Phencyclidine Scrn Ur Amphetamines Screen U Benzodiazepines Scrn Urine Cocaine Screen U Marijuana (THC) Screen Ethyl Alcohol Coronavirus (PCR) Influenza Type A (PCR) Influenza Type B (PCR) RSV RNA Qual (PCR) Blood Type Antibody Screen Crossmatch 03/17/20 03/17/20 03/17/20 05:39 05:39 08:19 WBC 12.2 H RBC 3.29 L Hgb 8.2 L Hct 25.3 L MCV 76.9 L MCH 24.9 L MCHC 32.4 RDW 26.6 H Plt Count 96 L MPV 9.6 Immature Gran % (Auto) 2.7 H Neut % (Auto) 74.9 H Lymph % (Auto) 15.3 L Franklin % (Auto) 6.6 Eos % (Auto) 0.4 Baso % (Auto) 0.1 Lymph # (Auto) 1.9 Franklin # (Auto) 0.8 Eos # (Auto) 0.1 Baso # (Auto) 0.0 Abs Immat Gran (auto) 0.33 H Absolute Neuts (auto) 9.1 H Absolute Nucleated RBC 0.110 H Nucleated RBC % (auto) 0.9 H Smear Tech's Comments VERIFIED Smear Path Review Hold Purple Top PT 13.0 INR 1.1 APTT D-Dimer VBG pH VBG pCO2 VBG pO2 VBG HCO3 VBG O2 Saturation VBG Base Excess Sodium 142 Potassium 3.4 Chloride 111 H Carbon Dioxide 25 Anion Gap 9 L BUN 11 Creatinine 0.74 Estim Creat Clear Calc 124.2 Estimated GFR > 60 Random Glucose 92 Lactic Acid Lactic Acid Fup @ 2Hr Lactic Acid Fup @ 4Hr Calcium 7.3 L Phosphorus Magnesium Total Bilirubin Direct Bilirubin AST ALT Alkaline Phosphatase Troponin I High Sens Total Protein Albumin Lipase Urine Color Urine Appearance Urine pH Ur Specific Vantage Urine Protein Urine Glucose (UA) Urine Ketones Urine Blood Urine Nitrite Ur Leukocyte Esterase Stool Occult Blood Urine Opiates Screen Ur Barbiturates Screen Ur Phencyclidine Scrn Ur Amphetamines Screen U Benzodiazepines Scrn Urine Cocaine Screen U Marijuana (THC) Screen Ethyl Alcohol Coronavirus (PCR) Influenza Type A (PCR) Influenza Type B (PCR) RSV RNA Qual (PCR) Blood Type Antibody Screen Crossmatch 03/18/20 03/18/20 03/18/20 05:19 05:19 05:19 WBC 10.0 RBC 3.52 L Hgb 8.8 L Hct 28.5 L MCV 81.0 MCH 25.0 L MCHC 30.9 L RDW 28.0 H Plt Count 74 L MPV Not Reportable Immature Gran % (Auto) Neut % (Auto) Lymph % (Auto) Franklin % (Auto) Eos % (Auto) Baso % (Auto) Lymph # (Auto) Franklin # (Auto) Eos # (Auto) Baso # (Auto) Abs Immat Gran (auto) Absolute Neuts (auto) Absolute Nucleated RBC 0.040 H Nucleated RBC % (auto) 0.4 H Smear Tech's Comments Smear Path Review Hold Purple Top PT 12.9 INR 1.1 APTT D-Dimer VBG pH VBG pCO2 VBG pO2 VBG HCO3 VBG O2 Saturation VBG Base Excess Sodium 142 Potassium 3.7 Chloride 111 H Carbon Dioxide 21 L Anion Gap 14 BUN 9 Creatinine 0.75 Estim Creat Clear Calc 122.4 Estimated GFR > 60 Random Glucose 110 Lactic Acid Lactic Acid Fup @ 2Hr Lactic Acid Fup @ 4Hr Calcium 7.2 L Phosphorus Magnesium Total Bilirubin Direct Bilirubin AST ALT Alkaline Phosphatase Troponin I High Sens Total Protein Albumin Lipase Urine Color Urine Appearance Urine pH Ur Specific Vantage Urine Protein Urine Glucose (UA) Urine Ketones Urine Blood Urine Nitrite Ur Leukocyte Esterase Stool Occult Blood Urine Opiates Screen Ur Barbiturates Screen Ur Phencyclidine Scrn Ur Amphetamines Screen U Benzodiazepines Scrn Urine Cocaine Screen U Marijuana (THC) Screen Ethyl Alcohol Coronavirus (PCR) Influenza Type A (PCR) Influenza Type B (PCR) RSV RNA Qual (PCR) Blood Type Antibody Screen Crossmatch Preliminary micro results at discharge 03/15/20 17:37 Blood Culture - Preliminary Blood - Venous No growth after 48 hours. 03/15/20 17:39 Blood Culture - Preliminary Blood - Venous No growth after 48 hours. Discharge Plan Discharge Patient Disposition: Home Health Service Referrals: [facility] [Outside] Physician,Unknown [Primary Care Provider] - Discharge Medications: New oxycodone 5 mg Tablet 5 mg PO Q6-8H PRN (Reason: Pain, Severe (Pain Scale 7-10)) Qty: 12 RF: 0 Continued methocarbamol 500 mg tablet 2 tab PO BID RF: 0 sucralfate 100 mg/mL suspension 10 ml PO QIDWMHS RF: 0 ondansetron HCl 8 mg tablet 1 tab PO TID PRN (Reason: nausea/vomiting) RF: 0 hydroxyzine pamoate 50 mg capsule 1 cap PO TID PRN (Reason: anxiety) RF: 0 zdwoibyfwe-tpkbuqfknlrxw-qgjg 50-325-40 mg tablet 1 tab PO DAILY PRN (Reason: Headache) RF: 0 lamotrigine 25 mg tablet 1 tab PO DAILY RF: 0 zonisamide 100 mg capsule 1 cap PO BID RF: 0 dicyclomine 20 mg tablet 1 tab PO QID RF: 0 esomeprazole magnesium 40 mg capsule,delayed release(DR/EC) 1 cap PO BID RF: 0 olanzapine 15 mg tablet 1 tab PO BEDTIME RF: 0 diazepam 10 mg tablet 1 tab PO BEDTIME RF: 0 topiramate 100 mg Tablet 100 mg PO DAILY RF: 0 topiramate 100 mg Tablet 200 mg PO BEDTIME RF: 0 lamotrigine 100 mg tablet 1 tab PO BID RF: 0 loratadine 10 mg tablet 1 tab PO DAILY RF: 0 prazosin 2 mg capsule 1 cap PO BEDTIME RF: 0 pregabalin 200 mg capsule 1 cap PO TID RF: 0 Combivent Respimat 20-100 mcg/actuation mist 1 puff PO QID RF: 0 Changed warfarin 10 mg tablet 10 mg PO DAILY@1700 Qty: 0 RF: 0 Discontinued warfarin 5 mg Tablet 15 mg PO MOWEFR@1800 RF: 0 Discharge Orders: Discharge Order (Routine); Ordered 03/18/20 Ordered By: Maru Gauthier Diet: advance to usual diet Activity on Discharge: As tolerated Other Ambulatory Orders: Complete Blood Count no Diff (Routine) Timeframe: 20200323 Facility: [facility] - Location: [address]-Lab Ordered By: Maru Gauthier Prothrombin Time INR (Routine) Timeframe: 20200323 Facility: [facility] - Location: Laboratory Ordered By: Maru Gauthier Visit Report Forms: Patient Portal Discharge page Care Plan Goals: Read below Health Concerns: Read below Plan of Treatment: You were admitted to the hospital and state of shock as a result of massive blood loss and very low blood level. You were admitted primarily to ICU and received blood transfusion and plasma products with antidote to recover your significantly elevated INR. Your responded well to the treatment and the bleeding stopped. Your blood level maintained around 8. No reported bleeding while in the hospital. A CT scan your abdomen showed small hematoma. Repeated CT scan showed that it is resolving. Decrease warfarin to 10 mg daily To check INR every 2-3 days and follow with your PCP Will recheck blood tests in few days.
== END 2020-03-18 13:37 | disposition home health service (06) | DRG 813 ==
LOC: HO.ED 20:39 → HO.ICU 03-16 01:10 → HO.IMC 03-17 07:15
PROVIDERS: Physician Assistant; Registered Nurse Community Health; Admitting Provider Internal Medicine Pulmonary Disease; Emergency Provider Emergency Medicine; PCP Family Medicine; Visit Provider Student in an Organized Health Care Education/Training Program
DX: D68.32 Hemorrhagic disorder due to extrinsic circulating anticoagulants (principal); R57.8 Other shock; D62 Acute posthemorrhagic anemia; N17.9 Acute kidney failure, unspecified; M79.81 Nontraumatic hematoma of soft tissue; T45.515A Adverse effect of anticoagulants, initial encounter; Y92.9 Unspecified place or not applicable; R29.6 Repeated falls; E87.6 Hypokalemia; K59.00 Constipation, unspecified; Z91.81 History of falling; R33.9 Retention of urine, unspecified; N92.1 Excessive and frequent menstruation with irregular cycle; Z20.828 Contact with and (suspected) exposure to other viral communicable diseases; Z98.84 Bariatric surgery status; Z95.0 Presence of cardiac pacemaker; Z88.5 Allergy status to narcotic agent; Z88.6 Allergy status to analgesic agent; Z79.01 Long term (current) use of anticoagulants; Z79.899 Other long term (current) drug therapy
CPT/HCPCS: 0241U; 36415; 36430; 70450; 71045; 74176; 80048; 80053; 80076; 80307; 80320; 81003; 82272; 82803; 83605; 83690; 83735; 84100; 84484; 85025; 85027; 85060; 85379; 85610; 85730; 86850; 86900; 86901; 86920; 87040; 87086; 93005; 94640; 96361; 96365; 96375; 97116; 97163; 97530; 99284; 99291; J0610; J0696; J1170; J2405; J3430; P9016; P9017

== ENCOUNTER → 2020-04-14 13:29 | Outpatient (BNVA) | payer MEDICARE, MEDICAID, SELFPAY | PROVIDERS: PCP Family Medicine; Visit Provider Nurse Practitioner Family | DX: R53.81 Other malaise (principal); M25.561 Pain in right knee; M25.562 Pain in left knee; M47.22 Other spondylosis with radiculopathy, cervical region; M47.27 Other spondylosis with radiculopathy, lumbosacral region | CPT/HCPCS: 99202 ==

== ENCOUNTER → 2020-04-28 09:01 | Outpatient (BNVA) | payer MEDICARE, MEDICAID, SELFPAY | PROVIDERS: PCP Family Medicine; Visit Provider Nurse Practitioner Family | DX: R53.81 Other malaise (principal); M25.561 Pain in right knee; M25.562 Pain in left knee; M47.22 Other spondylosis with radiculopathy, cervical region; M47.27 Other spondylosis with radiculopathy, lumbosacral region | CPT/HCPCS: 99212 ==

== ENCOUNTER 2020-06-16 20:56 | Inpatient (IN) | payer MEDICARE, MEDICAID, SELFPAY ==
--- NOTE | ~2020-06-16 | CT_ITS ---
EXAMINATION: CT angio head neck CLINICAL INFORMATION: Fall. On Coumadin. Slurred speech. COMPARISON: CT scan of the head and cervical spine spine 06/16/2020. TECHNIQUE: Tree Sapper images were obtained. A CT angiogram of the head and neck was performed in the arterial phase after the intravenous administration of 70 mL Omnipaque 350. Pre and delayed postcontrast images of the head were also obtained. MIP reconstructions were generated in multiple orientations at the acquisition workstation. Multiple three-dimensional surface rendered images and maximum intensity projection images were generated on a dedicated 3-D lab workstation. Arterial stenoses are measured in accordance with NASCET criteria or similar method if applicable. This CT examination was performed using dose optimization techniques as appropriate, including one or more of the following: Automated exposure control, iterative reconstruction, and adjustment of technique factors (mA and/or kVp) according to patient size (this includes techniques or standardized protocols for targeted exams where dose is matched to indication/reason for exam). Total exam dose-length product 2465 mGy-cm FINDINGS: Head: There is no acute intracranial hemorrhage or abnormal extra-axial collection. Postcontrast images reveal no abnormal mass or enhancement within the intracranial compartment. No intracranial mass effect or midline shift. Lateral and third ventricles are normal. No hydrocephalus. Way-white matter differentiation is preserved and there is no evidence of acute territorial infarct. The calvarium and skull base are intact. Mastoid air cells and middle ear cavities are well aerated. No active paranasal sinus disease. 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 angiogram head: There is a 3 mm contour abnormality adjacent to the right intradural vertebral artery just distal insertion best illustrated on axial image 546 of 1147 series 10. Intradural vertebral artery segments and basilar artery are otherwise normal. The intracranial internal carotid arteries are patent. Anterior, middle, and posterior cerebral artery complexes are normal. No high-grade stenosis or proximal occlusion is visualized within the cranial vessels. Other: Soft tissues of the neck including the thyroid gland are normal. Grossly no pathologically enlarged cervical lymph nodes. There is no acute osseous finding. CT/CT angio head neck IMPRESSION: There is a small contour abnormality along the medial aspect of the right intradural vertebral artery just beyond its dural insertion that may either represent a tight vascular loop of the right posterior inferior cerebellar artery or a 3 mm intracranial arterial aneurysm arising at the junction of the right vertebral artery and right posterior inferior cerebellar artery. Otherwise normal CT angiogram of the head and neck. No stenosis of the cervical carotid or vertebral arteries. No high-grade stenosis or proximal occlusion is visualized within the intracranial vessels. This critical result was discussed with Karen LANGE at 10:15 AM on 06/17/2020 and it was ascertained that the content and urgency of the report was understood at the time of direct communication.
--- NOTE | ~2020-06-16 | CT_ITS ---
EXAMINATION: CT HEAD WITHOUT CONTRAST CLINICAL INFORMATION: Fall. On Coumadin. COMPARISON: Multiple prior studies. Most recent is CT head 03/15/2020 TECHNIQUE: Contiguous axial imaging was performed from the skull base to vertex without intravenous administration of contrast. Coronal and sagittal reformatted images are performed at the CT scanner. [This CT examination was performed using dose optimization techniques as appropriate, variously including the following: *Automated exposure control *Adjustment of mA and/or kV according to patient size (this includes techniques or standardized protocols for targeted exams where dose is matched to indication/reason for exam; i.e. extremities or head) *Use of iterative reconstruction technique] DLP: 1590 mGy-cm. FINDINGS: There is no evidence of acute intracranial hemorrhage or territorial infarction. No abnormal mass-effect or midline shift is seen. Way to white matter differentiation is well preserved. No extra-axial fluid collections are identified. The ventricles are normal in size. There is no abnormal attenuation within the brain parenchyma. Stable 7 mm extra-axial calcification along the right frontal bone, axial image 40/82 series 5. This is unchanged since CAT scan 04/10/2006. There is no acute osseous abnormality. The mastoid air cells and visualized portions of the paranasal sinuses are well-aerated. CT/CT cervical spine wo con IMPRESSION: No acute intracranial pathology.
--- NOTE | ~2020-06-16 | CT_ITS ---
EXAMINATION: CT HEAD WITHOUT CONTRAST CLINICAL INFORMATION: Fall. On Coumadin. COMPARISON: Multiple prior studies. Most recent is CT head 03/15/2020 TECHNIQUE: Contiguous axial imaging was performed from the skull base to vertex without intravenous administration of contrast. Coronal and sagittal reformatted images are performed at the CT scanner. [This CT examination was performed using dose optimization techniques as appropriate, variously including the following: *Automated exposure control *Adjustment of mA and/or kV according to patient size (this includes techniques or standardized protocols for targeted exams where dose is matched to indication/reason for exam; i.e. extremities or head) *Use of iterative reconstruction technique] DLP: 1590 mGy-cm. FINDINGS: There is no evidence of acute intracranial hemorrhage or territorial infarction. No abnormal mass-effect or midline shift is seen. Way to white matter differentiation is well preserved. No extra-axial fluid collections are identified. The ventricles are normal in size. There is no abnormal attenuation within the brain parenchyma. Stable 7 mm extra-axial calcification along the right frontal bone, axial image 40/82 series 5. This is unchanged since CAT scan 04/10/2006. There is no acute osseous abnormality. The mastoid air cells and visualized portions of the paranasal sinuses are well-aerated. CT/CT head/brain wo con IMPRESSION: No acute intracranial pathology.
--- NOTE | ~2020-06-16 | CT_ITS ---
EXAMINATION: CT ABDOMEN AND PELVIS WITHOUT CONTRAST CLINICAL INFORMATION: Fall. Pain. COMPARISON: Previous CT of the abdomen and pelvis most recent March 2020 TECHNIQUE: Multidetector volumetric imaging was performed from the superior aspect of the liver through the pubic symphysis. Sagittal and coronal reformatted images were obtained on the technologist's workstation. This CT examination was performed using dose optimization techniques as appropriate, variously including the following: *Automated exposure control *Adjustment of mA and/or kV according to patient size (this includes techniques or standardized protocols for targeted exams where dose is matched to indication/reason for exam; i.e. extremities or head) *Use of iterative reconstruction technique DLP: 845 mGy-cm FINDINGS: LUNG BASES: The visualized lung bases are unremarkable. There are cardiac pacemaker leads. LIVER, GALLBLADDER, AND BILIARY TREE: The liver is normal in size, shape, and attenuation. No focal hepatic lesion or biliary ductal dilatation is present. The gallbladder has been removed. PANCREAS: Unremarkable. SPLEEN: Unremarkable. ADRENAL GLANDS: Unremarkable. KIDNEYS AND URETERS: The kidneys are normal in size, shape, and attenuation. There is excreted contrast in the collecting systems are head CTA. No hydronephrosis, hydroureter, or calculi seen. No perinephric stranding. BLADDER: There is excreted contrast in the bladder. The bladder is unremarkable. GASTROINTESTINAL TRACT: There are postsurgical changes from gastric bypass. The stomach, small and large bowel are otherwise unremarkable. The appendix is unremarkable. ABDOMINAL WALL: There are postoperative changes to the abdominal wall. No hernia is seen. There are clustered slightly high attenuation nodules in the subcutaneous fat of the right lateral abdominal wall. There is a subcutaneous nodule in the left anterior abdominal wall. The largest measures 1.3 cm axial image 39 series 8. This may represent changes from subcutaneous injection site versus a versus a hematoma. This is a new finding from March 2020 exam. LYMPH NODES: Normal. VASCULAR: Unremarkable. PELVIC VISCERA: There may be a right renal ovarian cyst measuring 2.8 x 1.8 cm. The uterus and left adnexa are unremarkable. OSSEOUS STRUCTURES: There is motion artifact in the left lower ribs are not well evaluated. No fracture or dislocation is seen. There is mild degenerative disc disease at L4-L5. CT/CT abdomen pelvis wo con IMPRESSION: New nodules in the subcutaneous fat of the right lateral abdominal wall and left anterior abdominal wall, question related to subcutaneous injection sites. Differential would include hematoma. Probable 1.8 x 2.8 cm right ovarian cyst. EXAMINATION: Right lower extremity CT without contrast CLINICAL INFORMATION: Thigh hematoma. Pain. COMPARISON: None. TECHNIQUE: Axial images through the right thigh without contrast. Sagittal and coronal reconstructions on the technologist workstation were performed. Patient dose 3 6 0 mg/cm This CT examination was performed using dose optimization techniques as appropriate, variously including the following: *Automated exposure control *Adjustment of mA and/or kV according to patient size (this includes techniques or standardized protocols for targeted exams where dose is matched to indication/reason for exam; i.e. extremities or head) *Use of iterative reconstruction technique FINDINGS: Bone alignment is normal. No fracture or dislocation is seen. The hip joint is unremarkable. There is arthritis at the right knee joint. There is no hip or knee joint effusion.. There are round high attenuation soft tissue densities in the subcutaneous fat of the right lateral proximal thigh, mild surrounding fat stranding and some skin thickening. Appearance is consistent with clinical diagnosis of hematoma. This area measures approximately 5 x 5 x 10 cm in transverse AP and longitudinal dimension. Soft tissues are otherwise normal. No adenopathy or hernia is seen. IMPRESSION: Superficial hematoma in the subcutaneous fat of the right proximal lateral thigh. Arthritis at the knee joint. No fracture is seen.
--- NOTE | 2020-06-16 21:13 | PC.NURSE ---
PATIENT'S MOTHER CALLS AT THIS TIME TO LEAVE NAME AND CONTACT NUMBER: PITER PATEL
[2020-06-16 21:25] VITALS: BP 89/68; PULSE 80; O2SAT 98
[2020-06-16 21:37] VITALS: BP 122/72; PULSE 88; RESP 17; O2SAT 98; BMI 38.2
--- NOTE | 2020-06-16 21:38 | ECG_ITS ---
Test Reason : weakness Blood Pressure : / mmHG Vent. Rate : 085 BPM Atrial Rate : 085 BPM P-R Int : 150 ms QRS Dur : 088 ms QT Int : 372 ms P-R-T Axes : 067 033 043 degrees QTc Int : 442 ms Normal sinus rhythm Normal ECG When compared with ECG of 15-MAR-2020 16:22, ID interval has increased T wave inversion no longer evident in Lateral leads Referred By: Jessica Latif Electronically Signed By:RUTH GARZA
--- NOTE | 2020-06-16 21:55 | ED_ITS ---
HPI - General Adult General Chief complaint: Fall Stated complaint: FALL,PAIN,+COLLAR,+THINNER,-LOC Time Seen by Provider: 06/16/20 21:33 Source: patient and EMS Mode of arrival: EMS Limitations: no limitations History of Present Illness HPI narrative: Patient is brought to emergency room by EMS. According to EMS a nd the patient, patient has been feeling weak all day today, patient reports falling backwards and hitting her head posteriorly. Patient denies loss of consciousness. Patient does take Coumadin, states her Coumadin was tested this morning, her level was 2.7. Denies headache. According to EMS, the family reported that the patient's speech is slurred which is not the patient's baseline, but they were not able to get an answer from her significant other when the symptoms started. Patient is unable to give significant history, she says it has been awhile but unable to quantify time. We attempted calling the patient's significant other and patient's mother, no answer over the phone. Related Data Home Medications Medication Instructions Recorded Confirmed Combivent Respimat 1 puff PO QID 03/15/20 04/28/20 peutzrkbnk-vakavbdenyfac-vdmi 1 tab PO DAILY PRN 03/15/20 04/28/20 diazepam 1 tab PO BEDTIME 03/15/20 04/28/20 dicyclomine 1 tab PO QID 03/15/20 04/28/20 esomeprazole magnesium 1 cap PO BID 03/15/20 04/28/20 hydroxyzine pamoate 1 cap PO TID PRN 03/15/20 04/28/20 lamotrigine 1 tab PO BID 03/15/20 04/28/20 lamotrigine 1 tab PO DAILY 03/15/20 04/28/20 loratadine 1 tab PO DAILY 03/15/20 04/28/20 olanzapine 1 tab PO BEDTIME 03/15/20 04/28/20 ondansetron HCl 1 tab PO TID PRN 03/15/20 04/28/20 prazosin 1 cap PO BEDTIME 03/15/20 04/28/20 pregabalin 1 cap PO TID 03/15/20 04/28/20 sucralfate 10 ml PO QIDWMHS 03/15/20 04/28/20 topiramate 100 mg PO DAILY 03/15/20 04/28/20 topiramate 200 mg PO BEDTIME 03/15/20 04/28/20 zonisamide 1 cap PO BID 03/15/20 04/28/20 tizanidine 2 mg capsule 2 mg PO Q8H PRN 04/14/20 04/28/20 Previous Rx's Medication Instructions Recorded warfarin 10 mg PO DAILY@1700 #90 tab 04/30/20 Allergies Allergy/AdvReac Type Severity Reaction Status Date / Time bee pollen [Bee Stings] Allergy Severe ANAPHYLAXIS Verified 04/28/20 09:20 honey Allergy Severe throat Verified 04/28/20 09:20 closes mushroom Allergy Severe ANAPHYLAXIS Verified 04/28/20 09:20 aspirin Allergy Unknown BLEED Verified 04/28/20 09:20 Bleach (Sodium Hypochlorite) Allergy Unknown RASH Verified 04/28/20 09:20 [BLEACH (SODIUM HYPOCHLORITE)] lactose [Lactose] Allergy Unknown STOMACH Verified 04/28/20 09:20 ACHE morphine [Morphine] Allergy Unknown ITCHING Verified 04/28/20 09:20 ibuprofen AdvReac Unknown Stomach Verified 04/28/20 09:20 Upset NSAIDS (Non-Steroidal AdvReac Unknown BLEED,COUMA Verified 04/28/20 09:20 Anti-Inflamma DIN [Nsaids] Review of Systems Review of Systems: Constitutional : No Weight loss, No Fever, No Chills, No Night Sweats, No Fatigue, No Malaise ENT/Mouth : No Hearing loss, No Ear Pain, No Nasal Congestion, No Sinus Pain, No Hoarseness, No sore throat, No Rhinorrhea, No Swallowing Difficulty Eyes: No Eye Pain, No Swelling, No Redness, No Foreign Body, No Discharge, No Vision Changes Cardiovascular : No Chest Pain, No SOB, No Dyspnea on Exertion, No Orthopnea, No Edema, No Palpitations Respiratory : No Cough, No Sputum, No Wheezing, No Smoke Exposure, No Dyspnea Gastrointestinal : No Nausea, No Vomiting, No Diarrhea, No Constipation, No abdominal Pain, No Hematochezia, No Melena Genitourinary : no irregular bleeding, No Dysuria, No Urinary Frequency, No Hematuria, No Urinary Incontinence, No Urgency, No Flank Pain, No Urinary Flow Changes, No Hesitancy Musculoskeletal : No joint pain, No Myalgias, No Joint Swelling Skin : No Skin Lesions, No rash Neuro : Complaining of generalized Weakness for couple of days,, No Numbness, No Paresthesias, No Loss of Consciousness, No Dizziness, no headache, complaining of posterior head pain secondary to fall Psych : No Anxiety/Panic, No Depression, No SI/HI/AH/VH, No Social Issues, Heme/Lymph: No Bruising, No Bleeding,No Lymphadenopathy Endocrine : No Polyuria, No Polydipsia, No Temperature Intolerance [facility] Past Medical History Medical History Anemia Cervical cancer COPD (chronic obstructive pulmonary disease) Deep vein thrombosis Elevated INR Falls Heart failure Hemorrhagic shock Herniated disc Neuropathy Pacemaker Pulmonary embolism Stomach cancer Urinary retention Surgical History Gastric bypass status for obesity Hx of cholecystectomy Social History Social History Household Members: Unknown / Unable to assess Housing: Unknown / Unable to assess Alcohol intake: never Smoking Status: Current every day smoker Second Hand Smoke Exposure: No Substance Use Type: Marijuana Advance Directives: No service: No Current occupational status: disabled Physical Exam Vital Signs: Vital Signs: Last Vital Signs Temp 98.8 F 06/17/20 00:00 Pulse 82 06/17/20 00:00 Resp 16 06/17/20 00:00 BP 104/73 06/17/20 00:00 Pulse Ox 100 06/17/20 00:00 Body Mass Index 38.2 Appearance: Alert, oriented x1, very somnolent, wakes up to sternal rub and occasionally to voice Eyes: Pupils equal, round and reactive to light. ENT: Pharynx normal. Neck: Neck: C-collar, no pain to palpation over the cervical spine, no palpable step-offs, CVS: Normal heart rate and rhythm. Pulses normal. Normal S1 and S2 Respiratory: No respiratory distress. Breath sounds normal. No Wheezing. No rales Abdomen: Soft and nontender. No rigidity. No distention. Skin: Skin warm and dry. Multiple old ecchymosis in right thigh Extremities: No lower extremity edema. Neuro: Alert and oriented x1, somnolent, arousable, patient does have slurry speech, but patient seems intoxicated Course Course Course Narrative: Patient has no neurological deficits, although patient does have slurred speech, patient seems to be under the influence of a substance Patient is a difficult stick. I was able to get an EJ at 23:55. CT no acute findings, CTA scan pending. Unfortunately, we have been unable to get any clear history of patient's symptoms, multiple attempts have been done to reach patient's mother and her significant other. 00:47 patient is completely awake, alert and oriented x3, states that she has had chronic pain for years and for the last 3 days she had an exacerbation. Patient states that today he took 20 mg of diazepam states it is being prescribed to her. Patient states that the pain is very intense at this moment all over her body, states that she is allergic to morphine and the only thing that works for her is IV Dilaudid D-dimer was 344, however patient has no shortness of breath, not tachycardic, patient is already on Coumadin and her INR is supratherapeutic at 5.7. PE is not suspected at this time. Patient has episodes where she has completely normal, asymptomatic, and then falls back asleep and wakes up to sternal rub. I discussed the patient with our hospitalist Dr. Walter, patient being admitted. Medical Decision Making Lab Data Result diagrams: 06/16/20 23:36 06/16/20 23:36 Labs: Lab Results 06/16/20 06/16/20 06/16/20 Range/Units 22:38 22:46 23:35 WBC (4.8-10.8) X10*3/uL RBC (4.20-5.50) X10*6/uL Hgb (12.0-16.0) g/dl Hct (37-47) % MCV (80-98) fL MCH (27.0-33.0) pg MCHC (31.0-35.0) g/dl RDW (11.0-16.0) % Plt Count (160-400) X10*3/uL MPV (9.4-12.3) fL Immature Gran % (Auto) (0.0-0.4) % Neut % (Auto) (45-73) % Lymph % (Auto) (20-40) % [place] % (Auto) (2-11) % Eos % (Auto) (0-4) % Baso % (Auto) (0-2) % Lymph # (Auto) (1.2-4.9) X10*3/uL [place] # (Auto) (0.1-1.2) X10*3/uL Eos # (Auto) (0.0-0.4) X10*3/uL Baso # (Auto) (0.0-0.2) X10*3/uL Abs Immat Gran (auto) (0.00-0.03) X10*3/uL Absolute Neuts (auto) (2.0-8.3) X10*3/uL Absolute Nucleated RBC (0.0-0.012) X10*3/uL Nucleated RBC % (auto) (0.0-0.2) /100WBC PT (10.8-13.0) SEC INR (0.9-1.1) D-Dimer NG/ML O2 Saturation % ABG pH at Pt Temp (7.35-7.45) ABG pH (Temp Correct) (7.35-7.45) ABG pCO2 at Pt Temp (32-45) mmHg ABG pCO2 (Temp Corrct (32-45) mmHg ABG pO2 at Pt Temp (83-108) mmHg ABG pO2 (Temp Correct (83-108) ABG HCO3 (22-26) mmol/L ABG Base Excess (Actual) mmol/L Sodium (135-145) mmol/L Potassium (3.3-5.1) mmol/L Chloride (96-108) mmol/L Carbon Dioxide (22-29) mmol/L Anion Gap (12-20) BUN (9-16) mg/dL Creatinine (0.5-1.4) mg/dL Estim Creat Clear Calc Estimated GFR POC Glucose 116 H (60-115) mg/dL Random Glucose (60-115) mg/dL Lactic Acid 1.0 (0.5-2.0) mmol/L Calcium (8.4-10.2) mg/dL Total Bilirubin (0.0-1.0) mg/dL Direct Bilirubin (0.0-0.5) mg/dL AST (5-31) U/L ALT (0-31) U/L Alkaline Phosphatase (39-117) U/L Troponin I High Sens 7.8 (<3.5-17.0) ng/L Total Protein (6.5-8.0) g/dL Albumin (3.5-5.0) g/dL Urine Color Urine Appearance Urine pH (5.0-8.0) Ur Specific [place] (1.005-1.025) Urine Protein (NEG-TRACE) MG/DL Urine Glucose (UA) (NEG) MG/DL Urine Ketones (NEG) MG/DL Urine Blood (NEG) Urine Nitrite (NEG) Ur Leukocyte Esterase (NEG) Urine Test (NEGATIVE) Urine Opiates Screen (Not Detect) Ur Barbiturates Screen (Not Detect) Ur Phencyclidine Scrn (Not Detect) Ur Amphetamines Screen (Not Detect) U Benzodiazepines Scrn (Not Detect) Urine Cocaine Screen (Not Detect) U Marijuana (THC) Screen (Not Detect) Ethyl Alcohol mg/dL 06/16/20 06/16/20 06/16/20 Range/Units 23:35 23:36 23:36 WBC 8.5 (4.8-10.8) X10*3/uL RBC 3.77 L (4.20-5.50) X10*6/uL Hgb 9.6 L (12.0-16.0) g/dl Hct 31.6 L (37-47) % MCV 83.8 (80-98) fL MCH 25.5 L (27.0-33.0) pg MCHC 30.4 L (31.0-35.0) g/dl RDW 20.6 H (11.0-16.0) % Plt Count 246 D (160-400) X10*3/uL MPV 9.8 (9.4-12.3) fL Immature Gran % (Auto) 1.2 H (0.0-0.4) % Neut % (Auto) 72.0 (45-73) % Lymph % (Auto) 16.3 L (20-40) % [place] % (Auto) 9.8 (2-11) % Eos % (Auto) 0.7 (0-4) % Baso % (Auto) 0.0 (0-2) % Lymph # (Auto) 1.4 (1.2-4.9) X10*3/uL [place] # (Auto) 0.8 (0.1-1.2) X10*3/uL Eos # (Auto) 0.1 (0.0-0.4) X10*3/uL Baso # (Auto) 0.0 (0.0-0.2) X10*3/uL Abs Immat Gran (auto) 0.10 H (0.00-0.03) X10*3/uL Absolute Neuts (auto) 6.1 (2.0-8.3) X10*3/uL Absolute Nucleated RBC 0.000 (0.0-0.012) X10*3/uL Nucleated RBC % (auto) 0.0 (0.0-0.2) /100WBC PT 68.4 H D (10.8-13.0) SEC INR 5.7 H* D (0.9-1.1) D-Dimer 344 NG/ML O2 Saturation % ABG pH at Pt Temp (7.35-7.45) ABG pH (Temp Correct) (7.35-7.45) ABG pCO2 at Pt Temp (32-45) mmHg ABG pCO2 (Temp Corrct (32-45) mmHg ABG pO2 at Pt Temp (83-108) mmHg ABG pO2 (Temp Correct (83-108) ABG HCO3 (22-26) mmol/L ABG Base Excess (Actual) mmol/L Sodium 139 (135-145) mmol/L Potassium 3.0 L (3.3-5.1) mmol/L Chloride 110 H (96-108) mmol/L Carbon Dioxide 20 L (22-29) mmol/L Anion Gap 12 (12-20) BUN 11 (9-16) mg/dL Creatinine 0.76 (0.5-1.4) mg/dL Estim Creat Clear Calc 112.0 Estimated GFR > 60 POC Glucose (60-115) mg/dL Random Glucose 87 (60-115) mg/dL Lactic Acid (0.5-2.0) mmol/L Calcium 7.6 L (8.4-10.2) mg/dL Total Bilirubin 1.0 (0.0-1.0) mg/dL Direct Bilirubin 0.6 H (0.0-0.5) mg/dL AST 20 D (5-31) U/L ALT 10 (0-31) U/L Alkaline Phosphatase 116 D (39-117) U/L Troponin I High Sens (<3.5-17.0) ng/L Total Protein 5.9 L D (6.5-8.0) g/dL Albumin 3.2 L (3.5-5.0) g/dL Urine Color Urine Appearance Urine pH (5.0-8.0) Ur Specific [place] (1.005-1.025) Urine Protein (NEG-TRACE) MG/DL Urine Glucose (UA) (NEG) MG/DL Urine Ketones (NEG) MG/DL Urine Blood (NEG) Urine Nitrite (NEG) Ur Leukocyte Esterase (NEG) Urine Test (NEGATIVE) Urine Opiates Screen (Not Detect) Ur Barbiturates Screen (Not Detect) Ur Phencyclidine Scrn (Not Detect) Ur Amphetamines Screen (Not Detect) U Benzodiazepines Scrn (Not Detect) Urine Cocaine Screen (Not Detect) U Marijuana (THC) Screen (Not Detect) Ethyl Alcohol mg/dL 06/16/20 06/16/20 06/16/20 Range/Units 23:36 23:50 23:50 WBC (4.8-10.8) X10*3/uL RBC (4.20-5.50) X10*6/uL Hgb (12.0-16.0) g/dl Hct (37-47) % MCV (80-98) fL MCH (27.0-33.0) pg MCHC (31.0-35.0) g/dl RDW (11.0-16.0) % Plt Count (160-400) X10*3/uL MPV (9.4-12.3) fL Immature Gran % (Auto) (0.0-0.4) % Neut % (Auto) (45-73) % Lymph % (Auto) (20-40) % [place] % (Auto) (2-11) % Eos % (Auto) (0-4) % Baso % (Auto) (0-2) % Lymph # (Auto) (1.2-4.9) X10*3/uL [place] # (Auto) (0.1-1.2) X10*3/uL Eos # (Auto) (0.0-0.4) X10*3/uL Baso # (Auto) (0.0-0.2) X10*3/uL Abs Immat Gran (auto) (0.00-0.03) X10*3/uL Absolute Neuts (auto) (2.0-8.3) X10*3/uL Absolute Nucleated RBC (0.0-0.012) X10*3/uL Nucleated RBC % (auto) (0.0-0.2) /100WBC PT (10.8-13.0) SEC INR (0.9-1.1) D-Dimer NG/ML O2 Saturation % ABG pH at Pt Temp (7.35-7.45) ABG pH (Temp Correct) (7.35-7.45) ABG pCO2 at Pt Temp (32-45) mmHg ABG pCO2 (Temp Corrct (32-45) mmHg ABG pO2 at Pt Temp (83-108) mmHg ABG pO2 (Temp Correct (83-108) ABG HCO3 (22-26) mmol/L ABG Base Excess (Actual) mmol/L Sodium (135-145) mmol/L Potassium (3.3-5.1) mmol/L Chloride (96-108) mmol/L Carbon Dioxide (22-29) mmol/L Anion Gap (12-20) BUN (9-16) mg/dL Creatinine (0.5-1.4) mg/dL Estim Creat Clear Calc Estimated GFR POC Glucose (60-115) mg/dL Random Glucose (60-115) mg/dL Lactic Acid (0.5-2.0) mmol/L Calcium (8.4-10.2) mg/dL Total Bilirubin (0.0-1.0) mg/dL Direct Bilirubin (0.0-0.5) mg/dL AST (5-31) U/L ALT (0-31) U/L Alkaline Phosphatase (39-117) U/L Troponin I High Sens (<3.5-17.0) ng/L Total Protein (6.5-8.0) g/dL Albumin (3.5-5.0) g/dL Urine Color Urine Appearance Urine pH (5.0-8.0) Ur Specific [place] (1.005-1.025) Urine Protein (NEG-TRACE) MG/DL Urine Glucose (UA) (NEG) MG/DL Urine Ketones (NEG) MG/DL Urine Blood (NEG) Urine Nitrite (NEG) Ur Leukocyte Esterase (NEG) Urine Test NEGATIVE (NEGATIVE) Urine Opiates Screen Not Detected (Not Detect) Ur Barbiturates Screen Not Detected (Not Detect) Ur Phencyclidine Scrn Not Detected (Not Detect) Ur Amphetamines Screen Not Detected (Not Detect) U Benzodiazepines Scrn POSITIVE H (Not Detect) Urine Cocaine Screen Not Detected (Not Detect) U Marijuana (THC) Screen Not Detected (Not Detect) Ethyl Alcohol < 10 mg/dL 06/16/20 06/17/20 Range/Units 23:50 00:10 WBC (4.8-10.8) X10*3/uL RBC (4.20-5.50) X10*6/uL Hgb (12.0-16.0) g/dl Hct (37-47) % MCV (80-98) fL MCH (27.0-33.0) pg MCHC (31.0-35.0) g/dl RDW (11.0-16.0) % Plt Count (160-400) X10*3/uL MPV (9.4-12.3) fL Immature Gran % (Auto) (0.0-0.4) % Neut % (Auto) (45-73) % Lymph % (Auto) (20-40) % [place] % (Auto) (2-11) % Eos % (Auto) (0-4) % Baso % (Auto) (0-2) % Lymph # (Auto) (1.2-4.9) X10*3/uL [place] # (Auto) (0.1-1.2) X10*3/uL Eos # (Auto) (0.0-0.4) X10*3/uL Baso # (Auto) (0.0-0.2) X10*3/uL Abs Immat Gran (auto) (0.00-0.03) X10*3/uL Absolute Neuts (auto) (2.0-8.3) X10*3/uL Absolute Nucleated RBC (0.0-0.012) X10*3/uL Nucleated RBC % (auto) (0.0-0.2) /100WBC PT (10.8-13.0) SEC INR (0.9-1.1) D-Dimer NG/ML O2 Saturation 97.0 % ABG pH at Pt Temp 7.38 (7.35-7.45) ABG pH (Temp Correct) 7.38 (7.35-7.45) ABG pCO2 at Pt Temp 33 (32-45) mmHg ABG pCO2 (Temp Corrct 34 (32-45) mmHg ABG pO2 at Pt Temp 97 (83-108) mmHg ABG pO2 (Temp Correct 98 (83-108) ABG HCO3 20 L (22-26) mmol/L ABG Base Excess (Actual) -3.6 mmol/L Sodium (135-145) mmol/L Potassium (3.3-5.1) mmol/L Chloride (96-108) mmol/L Carbon Dioxide (22-29) mmol/L Anion Gap (12-20) BUN (9-16) mg/dL Creatinine (0.5-1.4) mg/dL Estim Creat Clear Calc Estimated GFR POC Glucose (60-115) mg/dL Random Glucose (60-115) mg/dL Lactic Acid (0.5-2.0) mmol/L Calcium (8.4-10.2) mg/dL Total Bilirubin (0.0-1.0) mg/dL Direct Bilirubin (0.0-0.5) mg/dL AST (5-31) U/L ALT (0-31) U/L Alkaline Phosphatase (39-117) U/L Troponin I High Sens (<3.5-17.0) ng/L Total Protein (6.5-8.0) g/dL Albumin (3.5-5.0) g/dL Urine Color YELLOW Urine Appearance CLEAR Urine pH 6.5 (5.0-8.0) Ur Specific [place] 1.010 (1.005-1.025) Urine Protein NEG (NEG-TRACE) MG/DL Urine Glucose (UA) NEG (NEG) MG/DL Urine Ketones NEG (NEG) MG/DL Urine Blood NEG (NEG) Urine Nitrite NEG (NEG) Ur Leukocyte Esterase NEG (NEG) Urine Test (NEGATIVE) Urine Opiates Screen (Not Detect) Ur Barbiturates Screen (Not Detect) Ur Phencyclidine Scrn (Not Detect) Ur Amphetamines Screen (Not Detect) U Benzodiazepines Scrn (Not Detect) Urine Cocaine Screen (Not Detect) U Marijuana (THC) Screen (Not Detect) Ethyl Alcohol mg/dL Imaging Data Cervical spine CT: Radiologist's impression: FINDINGS: There is no evidence of acute intracranial hemorrhage or territorial infarction. No abnormal mass-effect or midline shift is seen. Way to white matter differentiation is well preserved. No extra-axial fluid collections are identified. The ventricles are normal in size. There is no abnormal attenuation within the brain parenchyma. Stable 7 mm extra-axial calcification along the right frontal bone, axial image 40/82 series 5. This is unchanged since CAT scan 04/10/2006. There is no acute osseous abnormality. The mastoid air cells and visualized portions of the paranasal sinuses are well-aerated. CT/CT cervical spine wo con IMPRESSION: No acute intracranial pathology. Head CT: Radiologist's impression: FINDINGS: There is no evidence of acute intracranial hemorrhage or territorial infarction. No abnormal mass-effect or midline shift is seen. Way to white matter differentiation is well preserved. No extra-axial fluid collections are identified. The ventricles are normal in size. There is no abnormal attenuation within the brain parenchyma. Stable 7 mm extra-axial calcification along the right frontal bone, axial image 40/82 series 5. This is unchanged since CAT scan 04/10/2006. There is no acute osseous abnormality. The mastoid air cells and visualized portions of the paranasal sinuses are well-aerated. CT/CT head/brain wo con IMPRESSION: No acute intracranial pathology. ECG Data Attestation: I personally reviewed and interpreted this ECG as follows: (Sinus rhythm, heart rate 85, no ST segment depression or elevation, QTC 442) Critical Care Time Critical Care Time Total Critical Care Time: 60 Discharge Plan Discharge Clinical Impression: Altered mental status, Acute hypokalemia, Supratherapeutic INR, Benzodiazepine overdose Patient Disposition: Admitted As Inpatient
[2020-06-16 22:52] LABS: Glucose, Whole Blood 116 mg/dL (60-115)
[2020-06-16 23:27] LABS: Troponin-I High Sensitivity 7.8 ng/L (<3.5-17.0)
[2020-06-16 23:45] LABS: MANUAL DIFF FLAG NO
[2020-06-16 23:46] LABS: Eosinophils Absolute Auto 0.1 X10*3/uL (0.0-0.4); Eosinophils Percent Auto 0.7 % (0-4); Hematocrit 31.6 % (37-47); Hemoglobin 9.6 g/dl (12.0-16.0); Imm Gran Pct Auto 1.2 % (0.0-0.4); Lymphocytes Absolute Auto 1.4 X10*3/uL (1.2-4.9); Lymphocytes Percent Auto 16.3 % (20-40); Mean Corpuscular HGB Conc 30.4 g/dl (31.0-35.0); Mean Corpuscular Hemoglobin 25.5 pg (27.0-33.0); Mean Corpuscular Volume 83.8 fL (80-98); Mean Platelet Volume 9.8 fL (9.4-12.3); Monocytes Absolute Auto 0.8 X10*3/uL (0.1-1.2); Monocytes Percent Auto 9.8 % (2-11); Neutrophils Absolute Auto 6.1 X10*3/uL (2.0-8.3); Platelet Count 246 X10*3/uL (160-400); Red Blood Count 3.77 X10*6/uL (4.20-5.50); Red Cell Distribution Width 20.6 % (11.0-16.0); White Blood Count 8.5 X10*3/uL (4.8-10.8)
[2020-06-16 23:56] LABS: D Dimer 344 NG/ML
[2020-06-16 23:57] LABS: Glucose Urine UA NEG (NEG); Leukocyte Esterase Urine NEG (NEG); Nitrite Urine NEG (NEG); PH 6.5 (5.0-8.0); Urine Blood NEG (NEG); Urine Ketones NEG (NEG); Urine Protein NEG (NEG-TRACE)
[2020-06-16 23:58] LABS: Appearance Urine CLEAR; Color Urine YELLOW
[2020-06-17] VITALS (11 sets, daily range): BP systolic 92–129; BP diastolic 55–94; PULSE 82–107; RESP 16–18; TEMP 36.8–37.3; O2SAT 99–100; BMI 41.2
[2020-06-17] LABS: Prothrombin Time 68.4 SEC (10.8-13.0)
[2020-06-17 00:02] LABS: INTERNATIONAL NORM RATIO 5.7 (0.9-1.1)
[2020-06-17 00:16] LABS: Alanine Aminotransferase 10 U/L (0-31); Albumin Level 3.2 g/dL (3.5-5.0); Alkaline Phosphatase 116 U/L (39-117); Anion Gap 12 (12-20); Aspartate Amino Transferase 20 U/L (5-31); Bilirubin Direct 0.6 mg/dL (0.0-0.5); Blood Urea Nitrogen 11 mg/dL (9-16); Calcium 7.6 mg/dL (8.4-10.2); Carbon Dioxide 20 mmol/L (22-29); Chloride 110 mmol/L (96-108); Estimated Glomerular Filt Rate > 60; Glucose Random 87 mg/dL (60-115); Sodium 139 mmol/L (135-145); Total Protein 5.9 g/dL (6.5-8.0)
[2020-06-17 00:18] LABS: ABG Base Excess -3.6 mmol/L; ABG HCO3 20 mmol/L (22-26); ABG pCO2 33 mmHg (32-45); ABG pCO2 TC 34 mmHg (32-45); ABG pH 7.38 (7.35-7.45); ABG pH TC 7.38 (7.35-7.45); ABG pO2 97 mmHg (83-108); ABG pO2 TC 98 (83-108)
[2020-06-17 00:20] LABS: ABG Refer to POC result
[2020-06-17 00:28] LABS: UPreg QC Valid YES; Urine Pregnancy NEGATIVE (NEGATIVE)
[2020-06-17 00:29] LABS: Amphetamine Screen Urine Not Detected (Not Detect); Barbiturates, Urine Not Detected (Not Detect); Benzodiazepines Screen Urine POSITIVE (Not Detect); Cannabinoid Screen Urine Not Detected (Not Detect); Cocaine Screen Urine Not Detected (Not Detect); Opiate Screen Urine Not Detected (Not Detect); Phencyclidine Screen Urine Not Detected (Not Detect)
[2020-06-17] MEDS: iohexoL 350 MG/ML 100 ML INFUS..BTL 70 ML IV (00:46)
[2020-06-17 01:21] LABS: Ethanol < 10 mg/dL
[2020-06-17] MEDS: 0.9 % Sodium Chloride 1,000 ML 999 ML IVCONT (03:13)
[2020-06-17] MEDS: Potassium Chloride Packet 20 MEQ PACKET 40 MEQ PO (03:21)
[2020-06-17] MEDS: Acetaminophen 325 MG TABLET 650 MG PO (03:21)
--- NOTE | 2020-06-17 04:13 | P.HPHOSP_ITS ---
History of Present Illness Date of Service: 06/17/20 Chief Complaint: AMS 44-year-old female with a past medical history of seizure disorder, history of DVT/PE on Coumadin, GERD, neuropathy, recent admission in March of 2020 for hemorrhagic shock secondary to menometrorrhagia; presented today to the hospital with a chief complaint of confusion. Patient is a poor historian. Unable to reach the family. Patient mentioned that she had a fall today and heat her head. Denies any numbness tingling or focal weakness. Reports generalized body aches. Also mentions that she has bruising on her right lateral thigh for about a week. Complains of pain in her back and asking for Dilaudid. Denies any chest pain p alpitations lightheadedness or dizziness. Patient mentions that she has history of seizures and unclear if she has any episode of seizure prior to coming to the hospital. Denies loss of consciousness when she had a fall. Denies any urinary symptoms. Review of all other systems is negative except mentioned above ER course: Per ER team patient 1 presented appeared to be drowsy but responds to the verbal stimuli. CT neck and CT head showed no acute findings. CT angio head and neck- lumen report showed no acute findings but final report pending. ER team mentioned that patient on presentation noted to have slightly slurred speech-? Which attributed to question Valium intake. ER team mentioned that patient's exam was nonfocal and less concern for any stroke. Noted a mild hypokalemia and supratherapeutic INR of 5.7. Hemoglobin stable and at her baseline.+ [facility] Medical History Anemia Cervical cancer COPD (chronic obstructive pulmonary disease) Deep vein thrombosis Elevated INR Falls Heart failure Hemorrhagic shock Herniated disc Neuropathy Pacemaker Pulmonary embolism Stomach cancer Urinary retention Surgical History Gastric bypass status for obesity Hx of cholecystectomy Social History Household Members: Significant Other Housing: Apartment Do you presently have visiting nurse or other home services: Yes ([employer]) Alcohol intake: never Smoking Status: Current some day smoker Tobacco Type: Cigarette Cigarettes Per Day: 10 Smoked in Last 30 Days: Yes Patient Interested in Nicotine Replacement: No Patient Given Instructions on How to Stop Smoking: Yes Date Education Initiated: 06/17/20 Second Hand Smoke Exposure: Yes Use of substances other than those prescribed or required for medical reasons: No Substance Use Type: Marijuana Currently Displaying Signs/Symptoms of Drug Intoxication Withdrawal: No Have you been hit, kicked, punched, or otherwise hurt by someone within the past year? If so, by whom?: No Do you feel safe in your current relationship?: Yes Is there a partner from a previous relationship who is making you feel unsafe now?: No Are you made to feel afraid or neglected: No Advance Directives: No Do you have thoughts of harming others: None Do you have a plan to hurt others: No Plan Recently lost weight without trying: No service: No Current occupational status: disabled Meds Allergies Allergy/AdvReac Type Severity Reaction Status Date / Time bee pollen [Bee Stings] Allergy Severe ANAPHYLAXIS Verified 06/17/20 04:16 honey Allergy Severe throat Verified 06/17/20 04:16 closes mushroom Allergy Severe ANAPHYLAXIS Verified 06/17/20 04:16 aspirin Allergy Unknown BLEED Verified 06/17/20 04:16 Bleach (Sodium Hypochlorite) Allergy Unknown RASH Verified 06/17/20 04:16 [BLEACH (SODIUM HYPOCHLORITE)] lactose [Lactose] Allergy Unknown STOMACH Verified 06/17/20 04:16 ACHE morphine [Morphine] Allergy Unknown ITCHING Verified 06/17/20 04:16 ibuprofen AdvReac Unknown Stomach Verified 06/17/20 04:16 Upset NSAIDS (Non-Steroidal AdvReac Unknown BLEED,COUMA Verified 06/17/20 04:16 Anti-Inflamma DIN [Nsaids] Active Medications: Current Medications Generic Name Dose Route Start Last Admin Trade Name Freq PRN Reason Stop Dose Admin Acetaminophen 650 mg 06/17/20 02:36 06/17/20 03:21 Acetaminophen 325 Mg Tablet PO 650 mg Q6H PRN Administration Pain, Mild (Pain Scale 1-3) Dextrose/Sodium Chloride 1,000 mls @ 100 mls/hr 06/17/20 02:45 D51/2ns IVCONT .Q10H CARROL Sodium Chloride 3 ml 06/17/20 08:00 0.9 % Sodium Chloride Flush 3 Ml Syringe IVFLUSH QSHIFT [facility] Home Medications Medication Instructions Recorded Confirmed Last Taken Type Combivent Respimat 1 puff PO QID 03/15/20 06/17/20 03/15/20 History [id number]-[id number]-[id number] 1 tab PO TID PRN 03/15/20 06/17/20 03/15/20 History diazepam 1 tab PO BEDTIME 03/15/20 06/17/20 03/14/20 History dicyclomine 1 tab PO QID 03/15/20 06/17/20 03/15/20 History esomeprazole magnesium 1 cap PO BID 03/15/20 06/17/20 03/15/20 History hydroxyzine pamoate 1 cap PO TID PRN 03/15/20 06/17/20 03/15/20 History lamotrigine 1 tab PO BID 03/15/20 06/17/20 03/15/20 History lamotrigine 1 tab PO DAILY 03/15/20 06/17/20 03/15/20 History loratadine 1 tab PO DAILY 03/15/20 06/17/20 03/15/20 History olanzapine 1 tab PO BEDTIME 03/15/20 06/17/20 03/14/20 History ondansetron HCl 1 tab PO TID PRN 03/15/20 06/17/20 03/15/20 History prazosin 1 cap PO BEDTIME 03/15/20 06/17/20 03/14/20 History pregabalin 1 cap PO TID 03/15/20 06/17/20 03/15/20 History sucralfate 10 ml PO QIDACHS 03/15/20 06/17/20 03/15/20 08:00 History topiramate 100 mg PO DAILY 03/15/20 06/17/20 03/15/20 History topiramate 200 mg PO BEDTIME 03/15/20 06/17/20 03/14/20 History zonisamide 1 cap PO BID 03/15/20 06/17/20 03/15/20 History Lidocaine Viscous 5 ml PO TID 06/17/20 06/17/20 Unknown History diazepam 1 tab PO BID@,06/17/20 06/17/20 Unknown History fluticasone propionate 2 spray INTRANASAL BID 06/17/20 06/17/20 Unknown History omeprazole 1 cap PO BID 06/17/20 06/17/20 Unknown History tizanidine 1 tab PO TID PRN 06/17/20 06/17/20 Unknown History warfarin 10 mg PO SUTUTHSA@16 06/17/20 06/17/20 Unknown History warfarin 15 mg PO MOWEFR@16 06/17/20 06/17/20 Unknown History Physical Exam Vital Signs and Narrative: Vital Signs: Last Vital Signs Temp 98.8 F 06/17/20 00:00 Pulse 87 06/17/20 04:07 Resp 16 06/17/20 04:07 BP 115/76 06/17/20 04:07 Pulse Ox 100 06/17/20 04:07 Body Mass Index 38.2 Gen: Appears be in no acute distress HEENT: NCAT, Moist mucosa. Pulmonary: Vesicular breath sounds, fair air entry CVS: Normal S1-S2 Abdomen: BS+, Soft, Nontender Extremities: Warm well perfused lower extremity examination was limited secondary to the pain. Neuro: Patient is more Alert and awake. Able to move the legs; able to move the upper extremities equally. Limited exam secondary to the pain. Results Labs CBC and Chem 7: 06/18/20 05:29 06/18/20 05:29 Labs: Laboratory Results - last 24 hr 06/16/20 06/16/20 06/16/20 22:38 22:46 23:35 MCV MCH MCHC RDW Plt Count MPV Immature Gran % (Auto) Neut % (Auto) Lymph % (Auto) [place] % (Auto) Eos % (Auto) Baso % (Auto) Lymph # (Auto) [place] # (Auto) Eos # (Auto) Baso # (Auto) Abs Immat Gran (auto) Absolute Neuts (auto) Absolute Nucleated RBC Nucleated RBC % (auto) PT INR D-Dimer O2 Saturation ABG pH at Pt Temp ABG pH (Temp Correct) ABG pCO2 at Pt Temp ABG pCO2 (Temp Corrct ABG pO2 at Pt Temp ABG pO2 (Temp Correct ABG HCO3 ABG Base Excess (Actual) Anion Gap Estim Creat Clear Calc Estimated GFR POC Glucose 116 H Random Glucose Lactic Acid 1.0 Calcium Total Bilirubin Direct Bilirubin AST ALT Alkaline Phosphatase Troponin I High Sens 7.8 Total Protein Albumin Urine Color Urine Appearance Urine pH Ur Specific [place] Urine Protein Urine Glucose (UA) Urine Ketones Urine Blood Urine Nitrite Ur Leukocyte Esterase Urine Test Urine Opiates Screen Ur Barbiturates Screen Ur Phencyclidine Scrn Ur Amphetamines Screen U Benzodiazepines Scrn Urine Cocaine Screen U Marijuana (THC) Screen Ethyl Alcohol 06/16/20 06/16/20 06/16/20 23:35 23:36 23:36 MCV 83.8 MCH 25.5 L MCHC 30.4 L RDW 20.6 H Plt Count 246 D MPV 9.8 Immature Gran % (Auto) 1.2 H Neut % (Auto) 72.0 Lymph % (Auto) 16.3 L [place] % (Auto) 9.8 Eos % (Auto) 0.7 Baso % (Auto) 0.0 Lymph # (Auto) 1.4 [place] # (Auto) 0.8 Eos # (Auto) 0.1 Baso # (Auto) 0.0 Abs Immat Gran (auto) 0.10 H Absolute Neuts (auto) 6.1 Absolute Nucleated RBC 0.000 Nucleated RBC % (auto) 0.0 PT 68.4 H D INR 5.7 H* D D-Dimer 344 O2 Saturation ABG pH at Pt Temp ABG pH (Temp Correct) ABG pCO2 at Pt Temp ABG pCO2 (Temp Corrct ABG pO2 at Pt Temp ABG pO2 (Temp Correct ABG HCO3 ABG Base Excess (Actual) Anion Gap 12 Estim Creat Clear Calc 112.0 Estimated GFR > 60 POC Glucose Random Glucose 87 Lactic Acid Calcium 7.6 L Total Bilirubin 1.0 Direct Bilirubin 0.6 H AST 20 D ALT 10 Alkaline Phosphatase 116 D Troponin I High Sens Total Protein 5.9 L D Albumin 3.2 L Urine Color Urine Appearance Urine pH Ur Specific [place] Urine Protein Urine Glucose (UA) Urine Ketones Urine Blood Urine Nitrite Ur Leukocyte Esterase Urine Test Urine Opiates Screen Ur Barbiturates Screen Ur Phencyclidine Scrn Ur Amphetamines Screen U Benzodiazepines Scrn Urine Cocaine Screen U Marijuana (THC) Screen Ethyl Alcohol 06/16/20 06/16/20 06/16/20 23:36 23:50 23:50 MCV MCH MCHC RDW Plt Count MPV Immature Gran % (Auto) Neut % (Auto) Lymph % (Auto) [place] % (Auto) Eos % (Auto) Baso % (Auto) Lymph # (Auto) [place] # (Auto) Eos # (Auto) Baso # (Auto) Abs Immat Gran (auto) Absolute Neuts (auto) Absolute Nucleated RBC Nucleated RBC % (auto) PT INR D-Dimer O2 Saturation ABG pH at Pt Temp ABG pH (Temp Correct) ABG pCO2 at Pt Temp ABG pCO2 (Temp Corrct ABG pO2 at Pt Temp ABG pO2 (Temp Correct ABG HCO3 ABG Base Excess (Actual) Anion Gap Estim Creat Clear Calc Estimated GFR POC Glucose Random Glucose Lactic Acid Calcium Total Bilirubin Direct Bilirubin AST ALT Alkaline Phosphatase Troponin I High Sens Total Protein Albumin Urine Color Urine Appearance Urine pH Ur Specific [place] Urine Protein Urine Glucose (UA) Urine Ketones Urine Blood Urine Nitrite Ur Leukocyte Esterase Urine Test NEGATIVE Urine Opiates Screen Not Detected Ur Barbiturates Screen Not Detected Ur Phencyclidine Scrn Not Detected Ur Amphetamines Screen Not Detected U Benzodiazepines Scrn POSITIVE H Urine Cocaine Screen Not Detected U Marijuana (THC) Screen Not Detected Ethyl Alcohol < 10 06/16/20 06/17/20 23:50 00:10 MCV MCH MCHC RDW Plt Count MPV Immature Gran % (Auto) Neut % (Auto) Lymph % (Auto) [place] % (Auto) Eos % (Auto) Baso % (Auto) Lymph # (Auto) [place] # (Auto) Eos # (Auto) Baso # (Auto) Abs Immat Gran (auto) Absolute Neuts (auto) Absolute Nucleated RBC Nucleated RBC % (auto) PT INR D-Dimer O2 Saturation 97.0 ABG pH at Pt Temp 7.38 ABG pH (Temp Correct) 7.38 ABG pCO2 at Pt Temp 33 ABG pCO2 (Temp Corrct 34 ABG pO2 at Pt Temp 97 ABG pO2 (Temp Correct 98 ABG HCO3 20 L ABG Base Excess (Actual) -3.6 Anion Gap Estim Creat Clear Calc Estimated GFR POC Glucose Random Glucose Lactic Acid Calcium Total Bilirubin Direct Bilirubin AST ALT Alkaline Phosphatase Troponin I High Sens Total Protein Albumin Urine Color YELLOW Urine Appearance CLEAR Urine pH 6.5 Ur Specific [place] 1.010 Urine Protein NEG Urine Glucose (UA) NEG Urine Ketones NEG Urine Blood NEG Urine Nitrite NEG Ur Leukocyte Esterase NEG Urine Test Urine Opiates Screen Ur Barbiturates Screen Ur Phencyclidine Scrn Ur Amphetamines Screen U Benzodiazepines Scrn Urine Cocaine Screen U Marijuana (THC) Screen Ethyl Alcohol Imaging Radiologist's Impressions: Impressions Cervical Spine CT 06/16/20 22:08 IMPRESSION: No acute intracranial pathology. Head CT 06/16/20 22:08 IMPRESSION: No acute intracranial pathology. Assessment and Plan (1) Altered mental status: Status: Resolved 44-year-old female with a past medical history of seizure disorder, anemia, history of DVT/PE on Coumadin, GERD fibromyalgia, bipolar presented to the hospital with a chief complaint of fall/altered mental status. Altered mental status: Patient mental status improving. Unclear the patient had seizure prior to coming to the hospital. Patient is slow to respond and questions slurred speech but grossly nonfocal on examination. NPO Dysphagia screen Speech and swallow eval Fall precautions Fall: Patient denies any loss of consciousness. CT head and CT C-spine showed no acute findings. CT abdomen pending-will check for any osseous abnormality as well. Anemia: Patient's current hemoglobin at her baseline. Noted to have right lateral thigh hematoma. Patient is known to have iliopsoas hematoma in prior admission. Will obtain a CT abdomen and CT of the right lower extremities History of seizure disorder: Will continue home topiramate, zonisamide History of fibromyalgia/bipolar: Continue home medications History of DVT/PE: Supratherapeutic INR at 5.7. Will hold Coumadin. Monitor INR levels Code status: Full code
[2020-06-17 04:59] LABS: COVID-19 Test Negative (Negative); IDNOW Serial# 9DD0AD1C
[2020-06-17 07:01] LABS: MANUAL DIFF FLAG NO
[2020-06-17 07:04] LABS: Eosinophils Absolute Auto 0.1 X10*3/uL (0.0-0.4); Eosinophils Percent Auto 0.7 % (0-4); Hematocrit 32.7 % (37-47); Hemoglobin 9.6 g/dl (12.0-16.0); Imm Gran Abs Auto 0.11 X10*3/uL (0.00-0.03); Imm Gran Pct Auto 1.3 % (0.0-0.4); Lymphocytes Absolute Auto 1.6 X10*3/uL (1.2-4.9); Lymphocytes Percent Auto 19.4 % (20-40); Mean Corpuscular HGB Conc 29.4 g/dl (31.0-35.0); Mean Corpuscular Hemoglobin 25.1 pg (27.0-33.0); Mean Corpuscular Volume 85.4 fL (80-98); Mean Platelet Volume 9.7 fL (9.4-12.3); Monocytes Absolute Auto 1.2 X10*3/uL (0.1-1.2); Monocytes Percent Auto 14.8 % (2-11); NRBC Pct Auto 0.2 /100WBC (0.0-0.2); Neutrophils Absolute Auto 5.3 X10*3/uL (2.0-8.3); Neutrophils Percent Auto 63.8 % (45-73); Platelet Count 208 X10*3/uL (160-400); Red Blood Count 3.83 X10*6/uL (4.20-5.50); Red Cell Distribution Width 20.7 % (11.0-16.0); White Blood Count 8.3 X10*3/uL (4.8-10.8)
[2020-06-17] MEDS: Dextrose 5 % and 0.45 % NaCl 1,000 ML 100 ML IVCONT ×2 (07:12→13:22)
--- NOTE | 2020-06-17 07:20 | PC.NURSE ---
REPORT TAKEN FROM TEZ NO. PATIENT SLEEPING UPON ASSESSMENT. PATIENT WOKE TO RN VOICE. THIS RN HAD LIDOCAINE PATCH FOR PATIENT. PATIENT REPORTS SHE HAS PAIN IN HER LEGS, BACK AND THROUGH OUT HER BODY. STATES SHE DID NOT WANT LIDOCAINE PATCH APPLIED BECAUSE IT IS ONLY GOING TO TREAT ONE AREA OF PAIN. EXPLAINED TO PATIENT THIS IS WHAT THE DR HAS ORDERED FOR NOW, NO OTHER PRN PAIN MED ORDERS OTHER THAN TYLENOL WHICH SHE RECEIVED EARLIER. INFORMED PATIENT SHE IS WAITING FOR ROOM UP ON FLOOR. PATIENT ASKING IF ORDERS ARE SAME UPSTAIRS DOWN IN ED, TOLD PATIENT YES THE ADMISSION DR SAW HERE DOWN HERE. PATIENT SPEECH SOUNDS SLIGHTLY SLURRED AT TIMES WHEN TALKING. PATIENT ORDER FOR NPO. ASKING FOR FIROECT, WILL CONTACT DAY HOSPITALIST TO SEE IF PT CAN TAKE PO MEDS.
[2020-06-17 07:32] LABS: Anion Gap 10 (12-20); Blood Urea Nitrogen 10 mg/dL (9-16); Calcium 7.8 mg/dL (8.4-10.2); Carbon Dioxide 18 mmol/L (22-29); Chloride 116 mmol/L (96-108); Creatinine Clr Calc Pharmacy 119.9; Estimated Glomerular Filt Rate > 60; Glucose Random 73 mg/dL (60-115); Potassium 4.5 mmol/L (3.3-5.1); Sodium 139 mmol/L (135-145)
[2020-06-17] MEDS: Butalb/Acetamin/Caff 50/325/40 TABLET 1 TAB PO ×3 (08:08→20:43)
--- NOTE | 2020-06-17 08:35 | MHC.CM.PN ---
pt lives alone in her apt. 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 she uses a walker and cane as needed. she is denying the need for vna at dc but says she will need help c transportation , requesting an ambulance. she stated that she does not want to go to [facility], but plans on returning home. dc plan is home c resort housekeeper svcs. cm to cont. to follow.
--- NOTE | 2020-06-17 08:37 | P.CDIC_ITS ---
[facility] Concurrent Query Service Date: 06/17/20 Documentation Clarification: Please clarify if you are treating a proba ble/suspected/likely or confirmed: Toxic encephalopathy Metabolic encephalopathy Please specify if known Toxic Encephalopathy -- likely from overuse of her home diazepam Provider Response: Toxic Encephalopathy PLEASE DO NOT DELETE/MODIFY EXISTING CONTENT Additional information is needed in order to code to the highest accuracy and ap propriate Severity of Illness (SOI). Please clarify the information noted below in your progress notes and discharge summary. Risk Factors/Clinical Indicators/Treatments Ed: appears to be under the infuence of something? intoxicated? altered mental status Labs positive for benzodiazeines H&P: slurred speech which is attributed to valium intake? H/O Benzodiazepines OD ED: Dx-Benzodiazepines overdose/seizure do CDS: [facility], [facility] Contact Number: [phone]. [phone] Please Review the information above and exercise your independent professional judgment in responding to the query. If you concur, pleas document in the PROGRESS NOTES and DISCHARGE SUMMARY. If you do not agree with the query, please document in the query above. THIS QUERY IS PART OF THE PERMANENT MEDICAL RECORD
[2020-06-17] MEDS: Dicyclomine HCl 10 MG CAPSULE 20 MG PO ×4 (09:06→20:42)
[2020-06-17] MEDS: Loratadine 10 MG TABLET PO (09:06)
[2020-06-17] MEDS: lamoTRIgine 25 MG TABLET PO (09:07)
[2020-06-17] MEDS: Topiramate 100 MG TABLET PO (09:07)
[2020-06-17] MEDS: lamoTRIgine 100 MG TABLET PO ×2 (09:07→20:42)
[2020-06-17] MEDS: TiZANidine HCL 4 MG TABLET 2 MG PO ×2 (10:03→20:42)
[2020-06-17] MEDS: hydrOXYzine HCL 50 MG TABLET PO ×2 (10:03→20:43)
[2020-06-17] MEDS: HYDROmorphone HCl 0.5 MG/0.5 ML SYRINGE 0.25 MG IVPUSH ×3 (10:04→20:45)
[2020-06-17 10:19] LABS: Prothrombin Time 84.5 SEC (10.8-13.0)
[2020-06-17] MEDS: Zonisamide 100 MG CAPSULE PO ×2 (10:34→20:42)
--- NOTE | 2020-06-17 12:37 | P.PNIM_ITS ---
Subjective Subjective Date of Service: 06/17/20 <Karen Bobby NP - Last Filed: 06/17/20 16:25> 06/17/20 <Andrew Monet MD - Last Filed: 06/17/20 17:50> Interval History: Follow up fall, possible seizure. Pain to hips and thighs. no headache or confusion <Karen Bobby NP - Last Filed: 06/17/20 16:25> Physical Exam Vital Signs: Vital Signs: Last Vital Signs Temp 98.8 F 06/17/20 00:00 Pulse 94 06/17/20 10:01 Resp 16 06/17/20 10:01 BP 124/94 H 06/17/20 10:01 Pulse Ox 100 06/17/20 10:01 Body Mass Index 38.2 <Karen Bobby NP - Last Filed: 06/17/20 16:25> Appearing in no acute distress lung sounds are clear to auscultation heart regular rate rhythm, clear S1, S2 positive bowel sounds, abdomen is soft, nontender, obese neuro patient is alert x3, no focal deficits <Karen Bobby NP - Last Filed: 06/17/20 16:25> Objective Data Current Medications Generic Name Dose Route Start Last Admin Trade Name Freq PRN Reason Stop Dose Admin Acetaminophen 650 mg 06/17/20 02:36 06/17/20 03:21 Acetaminophen 325 Mg Tablet PO 650 mg Q6H PRN Administration Pain, Mild (Pain Scale 1-3) Acetaminophen/Butalbital/Caffeine 1 tab 06/17/20 04:37 06/17/20 08:08 Butalb/Acetamin/Caff 50/325/40 Tablet PO 1 tab DAILY PRN Administration Headache Diazepam 10 mg 06/17/20 21:00 Diazepam 10 Mg Tablet PO BEDTIME C[facility]OL Dicyclomine HCl 20 mg 06/17/20 09:00 06/17/20 09:06 Dicyclomine Hcl 10 Mg Capsule PO 20 mg QID C[facility]OL Administration Hydromorphone HCl 0.25 mg 06/17/20 09:38 06/17/20 10:04 Hydromorphone Hcl 0.5 Mg/0.5 Ml Syringe IVPUSH 0.25 mg Q4H PRN Administration Pain, Mild (Pain Scale 1-3) Hydroxyzine HCl 50 mg 06/17/20 04:37 06/17/20 10:03 Hydroxyzine Hcl 50 Mg Tablet PO 50 mg TID PRN Administration anxiety Dextrose/Sodium Chloride 1,000 mls @ 100 mls/hr 06/17/20 02:45 06/17/20 07:12 D51/2ns IVCONT 100 mls/hr .Q10H [facility] Administration Lamotrigine 25 mg 06/17/20 09:00 06/17/20 09:07 Lamotrigine 25 Mg Tablet PO 25 mg DAILY C[facility]OL Administration Lamotrigine 100 mg 06/17/20 09:00 06/17/20 09:07 Lamotrigine 100 Mg Tablet PO 100 mg BID [facility] Administration Loratadine 10 mg 06/17/20 09:00 06/17/20 09:06 Loratadine 10 Mg Tablet PO 10 mg DAILY [facility] Administration Olanzapine 15 mg 06/17/20 21:00 Olanzapine 7.5 Mg Tablet PO BEDTIME [facility] Prazosin HCl 2 mg 06/17/20 21:00 Prazosin Hcl 1 Mg Capsule PO BEDTIME [facility] Protocol Pregabalin 200 mg 06/17/20 09:00 06/17/20 10:34 Pregabalin 200 Mg Capsule PO Not Given TID [facility] Sodium Chloride 3 ml 06/17/20 08:00 06/17/20 07:09 0.9 % Sodium Chloride Flush 3 Ml Syringe IVFLUSH Not Given QSHIFT [facility] Sucralfate 1 gm 06/17/20 07:30 06/17/20 07:09 Sucralfate Oral Suspension 1 Gm/10 Ml Oral.Susp PO Not Given QIDACHS [facility] Tizanidine HCl 2 mg 06/17/20 04:37 06/17/20 10:03 Tizanidine Hcl 4 Mg Tablet PO 2 mg Q8H PRN Administration Muscle Spasm Topiramate 100 mg 06/17/20 09:00 06/17/20 09:07 Topiramate 100 Mg Tablet PO 100 mg DAILY [facility] Administration Topiramate 200 mg 06/17/20 21:00 Topiramate 100 Mg Tablet PO BEDTIME [facility] Zonisamide 100 mg 06/17/20 09:00 06/17/20 10:34 Zonisamide 100 Mg Capsule PO 100 mg BID C[facility]OL Administration <Karen Bobby, COMMUNITY ENGAGEMENT SPECIALIST - Last Filed: 06/17/20 16:25> Labs CBC & Chem 7: : 06/17/20 15:36 06/17/20 06:48 <Karen Bobby NP - Last Filed: 06/17/20 16:25> Assessment and Plan (1) Altered mental status: Status: Acute <Karen Bobby NP - Last Filed: 06/17/20 16:25> Assessment and Plan: 44-year-old female with a past medical history of seizure disorder, anemia, history of DVT/PE on Coumadin, GERD fibromyalgia, bipolar presented to the hospital with a chief complaint of fall/altered mental status. Acute encephalopathy. Seems back to baseline. Chronic slurred speech neurologically intact Seizure disorder. Neurology consultation Seizure precautions continue topiramate and zonisamide Cerebral aneurysm. Incidental finding on head and neck CTA. Discussed case with [facility]. 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 Case also discussed with neurologist. No emergent intervention needed at this time. Recommendation for repeat CTA in 1 year's time. No bleed noted Low blood pressure reading. monitor for any signs of bleeding as patient is coagulopathic. Trend blood pressure If blood pressure continues to be low may consider vitamin K for reversal of coagulopathy Psoas muscle hematoma. Initially on the left side now on the right as well. Hx of psoas hematoma last admission Monitor for any active bleeding, signs of worsening hematoma Follow CBC Follow vital signs Consider vitamin K patient's blood counts or blood pressure decrease secondary to coagulopathy and hematoma History of PE/DVT. On warfarin hold due to coagulopathy Coagulopathy. INR 7.0. On warfarin at home. Hold warfarin. Bipolar disorder continue medications History of cervical and lumbar radiculopathy /chronic pain. Follows at pain clinic DVT prophylaxis with early ambulation due to coagulaopathy Attending:Dr. Monet <Karen Bobby NP - Last Filed: 06/17/20 16:25> Attending Attestation: Patient seen and examined independently and I was present during sargent portion of E/M service. Agree with Georgette Bobby NP's history, physical, assessment, and plan with the following additions and/changes. Patient does NOT have any CT or clinical evidence of L psoas hematoma. She does have evidence of a superficial hematoma in the subcutaneious fat of the R prox imal lateral thigh. Her BP was softer earlier in the day but has improved. Her repeat h/h remains stable. Her INR has increased from admission level of 5.7 to 8.3. She needs close monitoring of h/h, will check q4 hours. Given her previously life threatening bleed and increasing INR -- will give her a dose of vitamin k x 1. <Andrew Monet MD - Last Filed: 06/17/20 17:50>
--- NOTE | 2020-06-17 12:39 | PC.NURSE ---
alert. requesting meds. removed monitor leads. follows commands.
[2020-06-17] MEDS: Sucralfate Oral Suspension 1 GM/10 ML ORAL.SUSP PO ×3 (13:22→20:41)
--- NOTE | 2020-06-17 13:40 | P.CNNE_ITS ---
History of Present Illness Data of Consult Service Date: 06/17/20 Primary Care Provider: Unknown Physician 44 years old woman I was asked to see because of abnormal head CTA revealing a possible aneurysm. Her history was quite complicated and mostly obtained from previous office note. Apparently she suffered from seizure disorder or combination of seizure disorder and nonepileptic spells, chronic pain including chronic headaches depression sickle cell disease and cervical cancer. She had been taking multiple medicines but symptoms have not been controlled. She came to hospital stating that she fell down after her legs gave away. She was having headache yesterday but not as much today. Some headache was still present and she was asking if her Fioricet prescription could be made 3 times a day. There was no witnessing of any obvious seizure for focal weakness. Review of Systems Review of Systems: No recent cold or flu-like illness or witnessed seizure or trauma. [facility] Past Medical History Medical History Anemia Cervical cancer COPD (chronic obstructive pulmonary disease) Deep vein thrombosis Elevated INR Falls Heart failure Hemorrhagic shock Herniated disc Neuropathy Pacemaker Pulmonary embolism Stomach cancer Urinary retention Surgical History Surgical History Gastric bypass status for obesity Hx of cholecystectomy Social History Social History Household Members: Unknown / Unable to assess Housing: Unknown / Unable to assess Alcohol intake: never Smoking Status: Current every day smoker Second Hand Smoke Exposure: No Substance Use Type: Marijuana Advance Directives: No service: No Current occupational status: disabled Meds Allergies Allergy/AdvReac Type Severity Reaction Status Date / Time bee pollen [Bee Stings] Allergy Severe ANAPHYLAXIS Verified 06/17/20 04:16 honey Allergy Severe throat Verified 06/17/20 04:16 closes mushroom Allergy Severe ANAPHYLAXIS Verified 06/17/20 04:16 aspirin Allergy Unknown BLEED Verified 06/17/20 04:16 Bleach (Sodium Hypochlorite) Allergy Unknown RASH Verified 06/17/20 04:16 [BLEACH (SODIUM HYPOCHLORITE)] lactose [Lactose] Allergy Unknown STOMACH Verified 06/17/20 04:16 ACHE morphine [Morphine] Allergy Unknown ITCHING Verified 06/17/20 04:16 ibuprofen AdvReac Unknown Stomach Verified 06/17/20 04:16 Upset NSAIDS (Non-Steroidal AdvReac Unknown BLEED,COUMA Verified 06/17/20 04:16 Anti-Inflamma DIN [Nsaids] Active Medications: Current Medications Generic Name Dose Route Start Last Admin Trade Name Freq PRN Reason Stop Dose Admin Acetaminophen 650 mg 06/17/20 02:36 06/17/20 03:21 Acetaminophen 325 Mg Tablet PO 650 mg Q6H PRN Administration Pain, Mild (Pain Scale 1-3) Acetaminophen/Butalbital/Caffeine 1 tab 06/17/20 04:37 06/17/20 08:08 Butalb/Acetamin/Caff 50/325/40 Tablet PO 1 tab DAILY PRN Administration Headache Diazepam 10 mg 06/17/20 21:00 Diazepam 10 Mg Tablet PO BEDTIME C[facility]OL Dicyclomine HCl 20 mg 06/17/20 09:00 06/17/20 13:22 Dicyclomine Hcl 10 Mg Capsule PO 20 mg QID C[facility]OL Administration Hydromorphone HCl 0.25 mg 06/17/20 09:38 06/17/20 10:04 Hydromorphone Hcl 0.5 Mg/0.5 Ml Syringe IVPUSH 0.25 mg Q4H PRN Administration Pain, Mild (Pain Scale 1-3) Hydroxyzine HCl 50 mg 06/17/20 04:37 06/17/20 10:03 Hydroxyzine Hcl 50 Mg Tablet PO 50 mg TID PRN Administration anxiety Dextrose/Sodium Chloride 1,000 mls @ 100 mls/hr 06/17/20 02:45 06/17/20 13:22 D51/2ns IVCONT 100 mls/hr .Q10H [facility] Administration Lamotrigine 25 mg 06/17/20 09:00 06/17/20 09:07 Lamotrigine 25 Mg Tablet PO 25 mg DAILY [facility] Administration Lamotrigine 100 mg 06/17/20 09:00 06/17/20 09:07 Lamotrigine 100 Mg Tablet PO 100 mg BID CARROL Administration Loratadine 10 mg 06/17/20 09:00 06/17/20 09:06 Loratadine 10 Mg Tablet PO 10 mg DAILY [facility] Administration Olanzapine 15 mg 06/17/20 21:00 Olanzapine 7.5 Mg Tablet PO BEDTIME [facility] Prazosin HCl 2 mg 06/17/20 21:00 Prazosin Hcl 1 Mg Capsule PO BEDTIME [facility] Protocol Pregabalin 200 mg 06/17/20 09:00 06/17/20 10:34 Pregabalin 200 Mg Capsule PO Not Given TID [facility] Sodium Chloride 3 ml 06/17/20 08:00 06/17/20 07:09 0.9 % Sodium Chloride Flush 3 Ml Syringe IVFLUSH Not Given QSHIFT [facility] Sucralfate 1 gm 06/17/20 07:30 06/17/20 13:22 Sucralfate Oral Suspension 1 Gm/10 Ml Oral.Susp PO 1 gm QIDACHS [facility] Administration Tizanidine HCl 2 mg 06/17/20 04:37 06/17/20 10:03 Tizanidine Hcl 4 Mg Tablet PO 2 mg Q8H PRN Administration Muscle Spasm Topiramate 100 mg 06/17/20 09:00 06/17/20 09:07 Topiramate 100 Mg Tablet PO 100 mg DAILY [facility]OL Administration Topiramate 200 mg 06/17/20 21:00 Topiramate 100 Mg Tablet PO BEDTIME [facility] Zonisamide 100 mg 06/17/20 09:00 06/17/20 10:34 Zonisamide 100 Mg Capsule PO 100 mg BID [facility] Administration Home Medications Medication Instructions Recorded Confirmed Last Taken Type Combivent Respimat 1 puff PO QID 03/15/20 06/17/20 03/15/20 History [id number] 1 tab PO DAILY PRN 03/15/20 06/17/20 03/15/20 History diazepam 1 tab PO BEDTIME 03/15/20 06/17/20 03/14/20 History dicyclomine 1 tab PO QID 03/15/20 06/17/20 03/15/20 History esomeprazole magnesium 1 cap PO BID 03/15/20 06/17/20 03/15/20 History hydroxyzine pamoate 1 cap PO TID PRN 03/15/20 06/17/20 03/15/20 History lamotrigine 1 tab PO BID 03/15/20 06/17/20 03/15/20 History lamotrigine 1 tab PO DAILY 03/15/20 06/17/20 03/15/20 History loratadine 1 tab PO DAILY 03/15/20 06/17/20 03/15/20 History olanzapine 1 tab PO BEDTIME 03/15/20 06/17/20 03/14/20 History ondansetron HCl 1 tab PO TID PRN 03/15/20 06/17/20 03/15/20 History prazosin 1 cap PO BEDTIME 03/15/20 06/17/20 03/14/20 History pregabalin 1 cap PO TID 03/15/20 06/17/20 03/15/20 History sucralfate 10 ml PO QIDWMHS 03/15/20 06/17/20 03/15/20 08:00 History topiramate 100 mg PO DAILY 03/15/20 06/17/20 03/15/20 History topiramate 200 mg PO BEDTIME 03/15/20 06/17/20 03/14/20 History zonisamide 1 cap PO BID 03/15/20 06/17/20 03/15/20 History tizanidine 2 mg capsule 2 mg PO Q8H PRN 04/14/20 06/17/20 Unknown History Physical Exam Vital Signs: Vital Signs: Last Vital Signs Temp 98.2 F 06/17/20 12:41 Pulse 86 06/17/20 12:41 Resp 18 06/17/20 12:41 BP 92/67 06/17/20 13:36 Pulse Ox 100 06/17/20 13:36 Body Mass Index 38.2 Alert and awake with normal spontaneity of speech fluency comprehension and affect. Face was symmetrical. Visual vázquez were full. There was no obvious focal arm or leg weakness though she was very hesitant to move her legs and suggested that there were very sensitive. Plantars were flat. Examination was limited. Results Labs CBC & Chem 7: 06/17/20 06:48 06/17/20 06:48 Labs: Short CBC 06/16/20 06/17/20 Range/Units 23:36 06:48 WBC 8.5 8.3 (4.8-10.8) X10*3/uL Hgb 9.6 L 9.6 L (12.0-16.0) g/dl Hct 31.6 L 32.7 L (37-47) % Plt Count 246 D 208 (160-400) X10*3/uL BMP 06/16/20 06/17/20 23:36 06:48 Sodium 139 139 Potassium 3.0 L 4.5 D Chloride 110 H 116 H Carbon Dioxide 20 L 18 L BUN 11 10 Creatinine 0.76 0.71 Calcium 7.6 L 7.8 L Liver Function 06/16/20 Range/Units 23:36 Total Bilirubin 1.0 (0.0-1.0) mg/dL Direct Bilirubin 0.6 H (0.0-0.5) mg/dL AST 20 D (5-31) U/L ALT 10 (0-31) U/L Alkaline Phosphatase 116 D (39-117) U/L Albumin 3.2 L (3.5-5.0) g/dL Urine 06/16/20 Range/Units 23:50 Urine Color YELLOW Urine Appearance CLEAR Urine pH 6.5 (5.0-8.0) Ur Specific Left Hand 1.010 (1.005-1.025) Urine Protein NEG (NEG-TRACE) MG/DL Urine Glucose (UA) NEG (NEG) MG/DL Her head CT without contrast did not reveal any acute abnormality. There was mild diffuse cortical atrophy and a small right frontal meningioma without any mass effect. CTA of brain was okay except radiologist suggested that they might be a small, 3 mm, right intradural vertebral area or a PICA area aneurysm. Assessment and Plan (1) Encephalopathy: Problem details: 44 years old woman with complex underlying medical history including asthma, COPD, bipolar disorder, PTSD, epileptic versus nonepileptic seizures, chronic headaches, fibromyalgia, and DVT and PE on anticoagulation presented with losing balance and falling down. It is really etiology was unclear but there does not seem to be any acute neurological event. I would recommend conservative approach and ruling out any infection and adjusting her medications to avoid iatrogenic causes of dizziness drowsiness and falling. Status: Acute (2) Cerebral aneurysm: Problem details: Probably an incidental finding of heart tiny possible aneurysm. At this time no intervention is needed. May be a repeat CTA in a year time can help. Status: Acute (3) Meningioma: Problem details: Just an incidental finding not needing any further intervention or testing Status: Acute (4) Seizure disorder: Problem details: Not clear if this is an active issue at this time. It could be addressed outpatient with Dr. Ko Status: Acute (5) Chronic migraine: Status: Acute
[2020-06-17] MEDS: Pregabalin 200 MG CAPSULE PO ×2 (14:28→20:42)
--- NOTE | 2020-06-17 15:17 | MHC.SL.SWA ---
Speech Pathologist Impression: Oral Phase Dysphagia Risk of Aspiration Due to: Poor PO Intake Dysphasia Diet Status: Downgrade Liquid Consistency and Strategies for Safe Swallow: Liquid Intake Recommendation: Thin Liquid Intake Strategies: Unrestricted Solid Food Consistency: Dietary Recommendations: Chopped/Advanced (NDD3) Additional Modifications to Solid Foods: Moisten solids with sauces and gravies for ease of mastication. Oral Medication Intake: Whole with Liquid Compensatory Strategies and Precautions to be Taken for Safe Swallow: Supervision While Eating and Drinking for Safe Swallow: Intermittent Supervision Foods to Avoid: Swallowing Recommended Treatments: Compens. Strategy Educat. Recommendation for Speech: Inpatient Speech Therapy Comment: Frequency/Duration: Date Range for Service Req: Timeline to reassess: Instrument Repair Technician Clinican/Clinical Fellow: Yes: Enedina Parr M.A., CF-PLANE [employer]NER Supervisory Statement: I have reviewed and agree with the student/clinical fellow's documentation: Speech Language Pathologist:
[2020-06-17 15:56] LABS: MANUAL DIFF FLAG NO
[2020-06-17 15:58] LABS: Eosinophils Absolute Auto 0.1 X10*3/uL (0.0-0.4); Hematocrit 34.1 % (37-47); Hemoglobin 10.2 g/dl (12.0-16.0); Imm Gran Abs Auto 0.07 X10*3/uL (0.00-0.03); Lymphocytes Absolute Auto 1.6 X10*3/uL (1.2-4.9); Lymphocytes Percent Auto 22.9 % (20-40); Mean Corpuscular HGB Conc 29.9 g/dl (31.0-35.0); Mean Corpuscular Hemoglobin 25.5 pg (27.0-33.0); Mean Corpuscular Volume 85.3 fL (80-98); Mean Platelet Volume 10.8 fL (9.4-12.3); Monocytes Absolute Auto 0.7 X10*3/uL (0.1-1.2); Monocytes Percent Auto 9.6 % (2-11); Neutrophils Absolute Auto 4.6 X10*3/uL (2.0-8.3); Neutrophils Percent Auto 65.5 % (45-73); Platelet Count 253 X10*3/uL (160-400); Red Cell Distribution Width 20.5 % (11.0-16.0)
[2020-06-17 16:09] LABS: Prothrombin Time 100.4 SEC (10.8-13.0)
[2020-06-17 16:15] LABS: INTERNATIONAL NORM RATIO 8.3 (0.9-1.1)
[2020-06-17] MEDS: Phytonadione (Vit K1) Oral 10 MG/ML AMPUL 5 MG PO (16:59)
[2020-06-17] MEDS: 0.9 % Sodium Chloride Flush 3 ML SYRINGE IVFLUSH ×2 (16:59→20:43)
--- NOTE | 2020-06-17 17:04 | PC.NURSE ---
late entry from
--- NOTE | 2020-06-17 17:08 | PC.NURSE ---
late entry from 1615. pt aware of increased inr, when asks states she's had a headache since before lunch but has chronic headaches and takes prn meds (fioricet) TID at home. no nausea. no change in neuros. Has baseline left sided deficit. states she's had diff with coaguation in the past. pt has been repositioned in hospital bed with purewhick in place. was not incontinent for this rn. nsr on monitor. awaits room on imc. Lukasz Hernandez aware of INR and chronic headache complaint. Pt is axox3 , amply able to state needs.
--- NOTE | 2020-06-17 18:02 | PC.NURSE ---
rn to rn with elvin on [facility]
[2020-06-17 19:31] LABS: Hematocrit 32.1 % (37-47); Hemoglobin 9.8 g/dl (12.0-16.0)
[2020-06-17] MEDS: Topiramate 100 MG TABLET 200 MG PO (20:42)
[2020-06-17] MEDS: OLANZapine 7.5 MG TABLET 15 MG PO (20:42)
[2020-06-17] MEDS: Prazosin HCL 1 MG CAPSULE 2 MG PO (20:43)
[2020-06-17] MEDS: diazePAM 10 MG TABLET PO (20:57)
[2020-06-17 22:52] LABS: Hematocrit 29.9 % (37-47); Hemoglobin 9.2 g/dl (12.0-16.0)
--- NOTE | 2020-06-18 00:18 | PC.NURSE ---
Addendum entered by Jyoti Burnett RN 06/18/20 02:01: Pt has purwick in place and put out 700ml urine, bladder scanned for PVR and it still shows >999. MD aware, will monitor urine output in the next couple of hours and place boo if needed. Pt is aware of the plan at this time. Original Note: Pt arrived to unit, orientated to room and call baker. Pt a&ox4, VSS, reports generalized pain and specific pain to LLE, medicated with PRN Dilaudid, reports moderate effect. +BS, LBM 06/16/20. Pt no void upon arrival from ED, bladder scan >999 order for Boo placement, unsuccessful attempt x2, pt voided moderate amount, bladder scan >999 provider notified. R EJ access, flushes w/o difficulty. Pt is difficult stick, H+H order obtained by phlebotomy via finger prick. Skin intact, pillows in place for support. Pt unable to compleat MRI due to reported Pace maker.
[2020-06-18 00:32] VITALS: BP 99/64; PULSE 85; RESP 20; TEMP 36.5; O2SAT 95
[2020-06-18 04:00] VITALS: BP 112/62; PULSE 90; RESP 20; TEMP 36.4; O2SAT 99
[2020-06-18 06:25] LABS: MANUAL DIFF FLAG NO
[2020-06-18] MEDS: Dextrose 5 % and 0.45 % NaCl 1,000 ML 100 ML IVCONT (06:33)
[2020-06-18 06:38] LABS: Basophils Percent Auto 0.1 % (0-2); Eosinophils Absolute Auto 0.1 X10*3/uL (0.0-0.4); Eosinophils Percent Auto 0.6 % (0-4); Hematocrit 32.1 % (37-47); Hemoglobin 9.8 g/dl (12.0-16.0); Imm Gran Abs Auto 0.12 X10*3/uL (0.00-0.03); Imm Gran Pct Auto 1.5 % (0.0-0.4); Lymphocytes Absolute Auto 0.8 X10*3/uL (1.2-4.9); Lymphocytes Percent Auto 10.1 % (20-40); Mean Corpuscular HGB Conc 30.5 g/dl (31.0-35.0); Mean Corpuscular Hemoglobin 25.7 pg (27.0-33.0); Mean Corpuscular Volume 84.3 fL (80-98); Mean Platelet Volume 10.4 fL (9.4-12.3); Monocytes Absolute Auto 0.7 X10*3/uL (0.1-1.2); Monocytes Percent Auto 8.6 % (2-11); NRBC Pct Auto 0.3 /100WBC (0.0-0.2); Neutrophils Absolute Auto 6.2 X10*3/uL (2.0-8.3); Neutrophils Percent Auto 79.1 % (45-73); Platelet Count 223 X10*3/uL (160-400); Red Blood Count 3.81 X10*6/uL (4.20-5.50); Red Cell Distribution Width 20.3 % (11.0-16.0); White Blood Count 7.9 X10*3/uL (4.8-10.8)
[2020-06-18 06:40] LABS: INTERNATIONAL NORM RATIO 3.6 (0.9-1.1); Prothrombin Time 43.2 SEC (10.8-13.0)
[2020-06-18 07:03] LABS: Anion Gap 13 (12-20); Blood Urea Nitrogen 10 mg/dL (9-16); Calcium 7.7 mg/dL (8.4-10.2); Carbon Dioxide 21 mmol/L (22-29); Chloride 109 mmol/L (96-108); Creatinine Clr Calc Pharmacy 126.8; Estimated Glomerular Filt Rate > 60; Glucose Random 73 mg/dL (60-115); Potassium 3.7 mmol/L (3.3-5.1); Sodium 139 mmol/L (135-145)
[2020-06-18 07:51] VITALS: BP 112/62; PULSE 90; O2SAT 99
[2020-06-18 08:00] VITALS: BP 106/76; PULSE 69; RESP 18; TEMP 36.4; O2SAT 95
[2020-06-18] MEDS: Pregabalin 200 MG CAPSULE PO ×2 (08:04→14:22)
[2020-06-18] MEDS: Butalb/Acetamin/Caff 50/325/40 TABLET 1 TAB PO (08:04)
[2020-06-18] MEDS: Topiramate 100 MG TABLET PO (08:04)
[2020-06-18] MEDS: Dicyclomine HCl 10 MG CAPSULE 20 MG PO ×2 (08:05→13:09)
[2020-06-18] MEDS: lamoTRIgine 25 MG TABLET PO (08:05)
[2020-06-18] MEDS: Loratadine 10 MG TABLET PO (08:05)
[2020-06-18] MEDS: lamoTRIgine 100 MG TABLET PO (08:05)
[2020-06-18] MEDS: Sucralfate Oral Suspension 1 GM/10 ML ORAL.SUSP PO ×2 (08:05→13:08)
[2020-06-18] MEDS: Zonisamide 100 MG CAPSULE PO (08:05)
[2020-06-18] MEDS: 0.9 % Sodium Chloride Flush 3 ML SYRINGE IVFLUSH ×2 (08:06→14:22)
[2020-06-18] MEDS: HYDROmorphone HCl 0.5 MG/0.5 ML SYRINGE 0.25 MG IVPUSH ×2 (08:17→14:22)
--- NOTE | 2020-06-18 10:58 | MHC.SL.DTX ---
Pre-Treatment Diet: CHOPPED/ADVANCED (NDD3) SOLIDS THIN LIQUIDS PILLS WHOLE IN LIQUID Subjective: Changes made to current diet?: No Dysphasia Diet Status: Downgrade Liquid Consistency and Strategies: Liquid Intake Recommendation: Thin Compensatory Strategies for Safe Swallow: Unrestricted Compensatory Strategies for Safe Swallow(b): Sitting Upright (90 deg) Liquids from Cup Liquids from Straw Small Bites and Sips Alternate Liquids/Solids Rate of Ingestion Change Avoid Specific Foods Solid Food Consistency: Dietary Recommendations: Chopped/Advanced (NDD3) Additional Modifications to Solids: Moisten solids with sauces and gravies for ease of mastication. Oral Medication Intake: Whole with Liquid Strategies and Precautions to be Taken for Safe Swallow: Compensatory Swallowing Status: Sitting Upright (90 deg) Liquids from Cup Liquids from Straw Small Bites and Sips Alternate Liquids/Solids Rate of Ingestion Change Avoid Specific Foods Supervision While Eating and/Drinking: Intermittent Supervision Foods to Avoid: Avoid tough and sticky foods. Swallowing Recommended Treatments: Compens. Strategy Educat. Level of Impact on: Daily activities: Mild Interpersonal interactions: Mild Education: None Employment: None Community: Mild Prognosis for Improvement: Good Recommendation for Speech: Inpatient Speech Therapy Comment: Frequency/Duration: Date Range for Service Req: Timeline to reassess: Additional Comments: Treatment: Pt was seen this date for follow up dysphagia treatment. Pt agreed to PO trials this morning. She was given a cup of water and tolerated consecutive cup sips with no overt s/s aspiration. She was given a saltine cracker. Pt was observed to talk while eating. She was reminded of the importance of swallowing a bite before talking as a safety precaution. Pt was able to mash this consistency despite being edentulous. Pt independently utilized liquid wash. Pt educated on importance of utilizing the following compensatory strategies for swallow safety: liquid wash, small bites, chew food well, moisten with sauces and gravies for ease of mastication, sitting upright when eating and drinking. Pt expressed understanding of recommendations, stating that she has been living without dentures for a while and she does all of these strategies at home. Skilled dysphagia therapy is no longer warranted at this level of care. If pt's condition changes or if [employer] can be of further assistance, please re-refer. Permit Technician Clinican/Clinical Fellow: Yes: Enedina Parr M.A., CF-[employer] Supervisory Statement: I have reviewed and agree with the student/clinical fellow's documentation: Speech Language Pathologist:
[2020-06-18 11:44] VITALS: BP 114/63; PULSE 112; RESP 20; TEMP 36.4; O2SAT 99
--- NOTE | 2020-06-18 13:03 | P.DS_ITS ---
DS: Providers Provider Date of Service: 06/18/20 Date of admission: 06/17/20 02:36 Primary care physician: Unknown Physician Consults: 06/17/20 02:36 Consult to Neurology Routine Consulting Provider: [facility] Reason for consultation: AMS 06/17/20 19:29 Consult to Urology Routine Consulting Provider: Dawood Daigle Reason for consultation: Urinary retension DS: Diagnosis Discharge Diagnosis (1) Toxic encephalopathy: Status: Acute (2) Cerebral aneurysm: Status: Acute (3) Supratherapeutic INR: Status: Acute (4) Thigh hematoma: Status: Acute DS: Medications Discharge Medications Home Medications: Home Medications Medication Instructions Recorded Confirmed Combivent Respimat 1 puff PO QID 03/15/20 06/17/20 fcfcembkyx-tkqjfhikyhdzz-rbwq 1 tab PO TID PRN 03/15/20 06/17/20 diazepam 1 tab PO BEDTIME 03/15/20 06/17/20 dicyclomine 1 tab PO QID 03/15/20 06/17/20 esomeprazole magnesium 1 cap PO BID 03/15/20 06/17/20 hydroxyzine pamoate 1 cap PO TID PRN 03/15/20 06/17/20 lamotrigine 1 tab PO BID 03/15/20 06/17/20 lamotrigine 1 tab PO DAILY 03/15/20 06/17/20 loratadine 1 tab PO DAILY 03/15/20 06/17/20 olanzapine 1 tab PO BEDTIME 03/15/20 06/17/20 ondansetron HCl 1 tab PO TID PRN 03/15/20 06/17/20 prazosin 1 cap PO BEDTIME 03/15/20 06/17/20 pregabalin 1 cap PO TID 03/15/20 06/17/20 sucralfate 10 ml PO QIDACHS 03/15/20 06/17/20 topiramate 100 mg PO DAILY 03/15/20 06/17/20 topiramate 200 mg PO BEDTIME 03/15/20 06/17/20 zonisamide 1 cap PO BID 03/15/20 06/17/20 diazepam 1 tab PO BID@,14 06/17/20 06/17/20 fluticasone propionate 2 spray INTRANASAL BID 06/17/20 06/17/20 lidocaine HCl [Lidocaine Viscous] 5 ml PO TID 06/17/20 06/17/20 omeprazole 1 cap PO BID 06/17/20 06/17/20 tizanidine 1 tab PO TID PRN 06/17/20 06/17/20 warfarin 10 mg PO SUTUTHSA@16 06/17/20 06/17/20 warfarin 15 mg PO MOWEFR@16 06/17/20 06/17/20 DS: Summary Hospital Course Hospital Course: 44-year-old female with a past medical history of seizure disorder, history of DVT/PE on Coumadin, GERD, neuropathy, recent admission in March of 2020 for hemorrhagic shock secondary to menometrorrhagia; presented today to the hospital with a chief complaint of confusion. Patient is a poor historian. Unable to reach the family. Patient mentioned that she had a fall today and heat her head. Denies any numbness tingling or focal weakness. Reports generalized body aches. Also mentions that she has bruising on her right lateral thigh for about a week. Complains of pain in her back and asking for Dilaudid. Denies any chest pain palpitations lightheadedness or dizziness. Patient mentions that she has history of seizures and unclear if she has any episode of seizure prior to coming to the hospital. Denies loss of consciousness when she had a fall. Denies any urinary symptoms. Patient was initially admitted due to acute encephalopathy. She quickly improved back to her baseline and was never noted to have any focal neurological deficit. She underwent brain CT which showed no acute changes. She was incidentally found to have a possible small brain aneurysm on CTA. She was seen by Neurology who recommended repeat CTA in 1 year. No other inpatient workup was recommended. Encephalopathy was possibly related to inappropriate use of benzodiazepine vs seizure and she was recommended to follow up with her neurologist as an outpatient. Leg pain - imaging showed right thigh hematoma. likely related to elevated INR which was 5.7 on arrival. She received a dose of vitamin k with improvement, today INR is 3.6. She is instructed to hold coumadin today and resume coumadin tomorrow and follow up with coumadin clinic to monitor INR. She was seen by speech who recommended chopped solids with thin liquids. Time Spent with Patient Time attestation: Total time spent providing and/or coordinating discharge services: Discharge coordination time: Greater than 30 minutes Physical Exam Vital Signs: Vital Signs: Last Vital Signs Temp 97.6 F 06/18/20 11:44 Pulse 112 H 06/18/20 11:44 Resp 20 06/18/20 11:44 BP 114/63 06/18/20 11:44 Pulse Ox 99 06/18/20 11:44 Body Mass Index 41.2 Const: General: no acute distress, alert and awake Nutritional Appearance: well nourished Orientation/consciousness: patient oriented x3 HENMT: Head: Yes normocephalic and Yes atraumatic Eyes: Sclerae: sclerae normal Chest: Chest palpation & inspection: normal inspection of the chest Resp: Effort & Inspection: normal respiratory effort and no respiratory distress Cardio: Rate: regular rate Rhythm: regular rhythm GI: Palpation (GI): Soft to palpation and nontender Neuro: General: patient oriented x3 DS: Data Data Completed and Pending Completed studies during hospitalization [Text1]: Procedures Transfusion of Nonautologous Frozen Plasma into Peripheral Vein, Percutaneous Approach (03/15/20) Transfusion of Nonautologous Red Blood Cells into Peripheral Vein, Percutaneous Approach (03/15/20) Labs on day of discharge: Laboratory Results - last 24 hr 06/17/20 06/17/20 06/17/20 15:36 15:36 19:09 WBC 7.0 RBC 4.00 L Hgb 10.2 L 9.8 L Hct 34.1 L 32.1 L MCV 85.3 MCH 25.5 L MCHC 29.9 L RDW 20.5 H Plt Count 253 MPV 10.8 Immature Gran % (Auto) 1.0 H Neut % (Auto) 65.5 Lymph % (Auto) 22.9 Alpine % (Auto) 9.6 Eos % (Auto) 1.0 Baso % (Auto) 0.0 Lymph # (Auto) 1.6 Alpine # (Auto) 0.7 Eos # (Auto) 0.1 Baso # (Auto) 0.0 Abs Immat Gran (auto) 0.07 H Absolute Neuts (auto) 4.6 Absolute Nucleated RBC 0.000 Nucleated RBC % (auto) 0.0 PT 100.4 H INR 8.3 H* Sodium Potassium Chloride Carbon Dioxide Anion Gap BUN Creatinine Estim Creat Clear Calc Estimated GFR Random Glucose Calcium 06/17/20 06/18/20 06/18/20 22:43 05:29 05:29 WBC 7.9 RBC 3.81 L Hgb 9.2 L 9.8 L Hct 29.9 L 32.1 L MCV 84.3 MCH 25.7 L MCHC 30.5 L RDW 20.3 H Plt Count 223 MPV 10.4 Immature Gran % (Auto) 1.5 H Neut % (Auto) 79.1 H Lymph % (Auto) 10.1 L Alpine % (Auto) 8.6 Eos % (Auto) 0.6 Baso % (Auto) 0.1 Lymph # (Auto) 0.8 L Alpine # (Auto) 0.7 Eos # (Auto) 0.1 Baso # (Auto) 0.0 Abs Immat Gran (auto) 0.12 H Absolute Neuts (auto) 6.2 Absolute Nucleated RBC 0.020 H Nucleated RBC % (auto) 0.3 H PT INR Sodium 139 Potassium 3.7 Chloride 109 H Carbon Dioxide 21 L Anion Gap 13 BUN 10 Creatinine 0.70 Estim Creat Clear Calc 126.8 Estimated GFR > 60 Random Glucose 73 Calcium 7.7 L 06/18/20 05:29 WBC RBC Hgb Hct MCV MCH MCHC RDW Plt Count MPV Immature Gran % (Auto) Neut % (Auto) Lymph % (Auto) Alpine % (Auto) Eos % (Auto) Baso % (Auto) Lymph # (Auto) Alpine # (Auto) Eos # (Auto) Baso # (Auto) Abs Immat Gran (auto) Absolute Neuts (auto) Absolute Nucleated RBC Nucleated RBC % (auto) PT 43.2 H D INR 3.6 H Sodium Potassium Chloride Carbon Dioxide Anion Gap BUN Creatinine Estim Creat Clear Calc Estimated GFR Random Glucose Calcium Preliminary micro results at discharge 06/16/20 23:35 Blood Culture - Preliminary Blood - Venous No growth after 24 hours. 06/16/20 23:36 Blood Culture - Preliminary Blood - Venous No growth after 24 hours. Discharge Plan Discharge Patient Disposition: Home, Self-Care Discharge Diagnosis: Thigh hematoma, elevated INR Referrals: Physician,Unknown [Primary Care Provider] - 1 Week Discharge Medications: Continued sucralfate 100 mg/mL suspension 10 ml PO QIDACHS RF: 0 ondansetron HCl 8 mg tablet 1 tab PO TID PRN (Reason: nausea/vomiting) RF: 0 hydroxyzine pamoate 50 mg capsule 1 cap PO TID PRN (Reason: anxiety) RF: 0 xbrcxuvems-urjrjxwacpjdo-lsab 50-325-40 mg tablet 1 tab PO TID PRN (Reason: Headache) RF: 0 lamotrigine 25 mg tablet 1 tab PO DAILY RF: 0 zonisamide 100 mg capsule 1 cap PO BID RF: 0 dicyclomine 20 mg tablet 1 tab PO QID RF: 0 esomeprazole magnesium 40 mg capsule,delayed release(DR/EC) 1 cap PO BID RF: 0 olanzapine 15 mg tablet 1 tab PO BEDTIME RF: 0 diazepam 10 mg tablet 1 tab PO BEDTIME RF: 0 topiramate 100 mg Tablet 100 mg PO DAILY RF: 0 topiramate 100 mg Tablet 200 mg PO BEDTIME RF: 0 lamotrigine 100 mg tablet 1 tab PO BID RF: 0 loratadine 10 mg tablet 1 tab PO DAILY RF: 0 prazosin 2 mg capsule 1 cap PO BEDTIME RF: 0 pregabalin 200 mg capsule 1 cap PO TID RF: 0 Combivent Respimat 20-100 mcg/actuation mist 1 puff PO QID RF: 0 tizanidine 4 mg tablet 1 tab PO TID PRN (Reason: muscle spasm) RF: 0 omeprazole 40 mg capsule,delayed release(DR/EC) 1 cap PO BID RF: 0 warfarin 5 mg Tablet 15 mg PO MOWEFR@16 RF: 0 Lidocaine Viscous 2 % solution 5 ml PO TID RF: 0 fluticasone propionate 50 mcg/actuation spray,suspension 2 spray intranasal BID RF: 0 diazepam 5 mg tablet 1 tab PO BID@08,14 RF: 0 warfarin 10 mg tablet 10 mg PO SUTUTHSA@16 RF: 0 Activity on Discharge: As tolerated Stand Alone Forms: Patient Portal Discharge page Care Plan Goals: See below Health Concerns: Thigh hematoma Elevated INR Brain aneurysm Encephalopathy resolved Plan of Treatment: Elevated INR. Improved, hold dose of coumadin today and resume taking tomorrow. Follow with coumadin clinic for dosing. Brain aneurysm. Repeat imaging in 1 year recommended. Follow up with PCP. Thigh hematoma. no active bleeding. Assessment: See discharge summary
[2020-06-18] MEDS: hydrOXYzine HCL 50 MG TABLET PO (13:12)
--- NOTE | 2020-06-18 14:30 | MHC.CM.PN ---
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
[2020-06-18 15:33] VITALS: BP 132/66; PULSE 116; RESP 19; TEMP 35.7; O2SAT 100
--- NOTE | 2020-06-18 15:48 | MHC.CM.PN ---
Per RN, Patient will require BLS transport to home; transport has been arranged (first available).
== END 2020-06-18 16:45 | disposition home or self-care (01) | DRG 917 ==
LOC: HO.ED 06-17 02:42 → HO.EDOVER 06-17 02:53 → HO.IMC 06-17 09:50 → HO.EDOVER 06-17 12:35 → HO.IMC 06-17 17:27
PROVIDERS: Nurse Practitioner Acute Care; Admitting Provider Hospitalist; Emergency Provider Emergency Medicine; PCP Family Medicine; Visit Provider Family Medicine
DX: T42.4X4A Poisoning by benzodiazepines, undetermined, initial encounter (principal); G92 Toxic encephalopathy; D68.9 Coagulation defect, unspecified; G40.909 Epilepsy, unspecified, not intractable, without status epilepticus; F31.9 Bipolar disorder, unspecified; M79.7 Fibromyalgia; Z20.822 Contact with and (suspected) exposure to COVID-19; I67.1 Cerebral aneurysm, nonruptured; Z86.718 Personal history of other venous thrombosis and embolism; G43.909 Migraine, unspecified, not intractable, without status migrainosus; M54.12 Radiculopathy, cervical region; M54.16 Radiculopathy, lumbar region; M79.81 Nontraumatic hematoma of soft tissue; Z95.0 Presence of cardiac pacemaker; F17.210 Nicotine dependence, cigarettes, uncomplicated; Z71.6 Tobacco abuse counseling; Z88.6 Allergy status to analgesic agent; Z79.01 Long term (current) use of anticoagulants; Z79.51 Long term (current) use of inhaled steroids; Z79.899 Other long term (current) drug therapy; Y92.9 Unspecified place or not applicable
CPT/HCPCS: 36415; 70450; 70496; 70498; 72125; 73700; 74176; 80048; 80076; 80307; 80320; 81003; 81025; 82947; 83605; 84484; 85014; 85018; 85025; 85379; 85610; 87040; 87635; 92610; 93005; 97163; 99285; 99291; J1170; J3430; Q9967

== ENCOUNTER 2020-08-04 12:03 | Observation (INO) | payer MEDICARE, MEDICAID, SELFPAY ==
--- NOTE | ~2020-08-04 | CT_ITS ---
EXAMINATION: CT HEAD WITHOUT CONTRAST CLINICAL INFORMATION: Seizure. COMPARISON: Head CT from 06/16/2020. TECHNIQUE: Contiguous axial imaging was performed from the skull base to vertex without intravenous administration of contrast. This CT examination was performed using dose optimization techniques as appropriate, variously including the following: *Automated exposure control *Adjustment of mA and/or kV according to patient size (this includes techniques or standardized protocols for targeted exams where dose is matched to indication/reason for exam; i.e. extremities or head) *Use of iterative reconstruction technique DLP: 798 mGy-cm FINDINGS: There is no evidence of acute intracranial hemorrhage or territorial infarction. No abnormal mass effect or midline shift is seen. Way to white matter differentiation is well preserved. No extra-axial fluid collections are identified. There is mild frontoparietal parenchymal volume loss which is greater than expected for patient age. The ventricles are normal in size. There is no abnormal attenuation within the brain parenchyma. There are mild soft tissue inflammatory changes in the right premaxillary subcutaneous tissues. The osseous structures are normal. The mastoid air cells and visualized portions of the paranasal sinuses are well aerated. CT/CT head/brain wo con IMPRESSION: No acute intracranial pathology. Nonspecific mild soft tissue stranding and inflammatory changes in the right lateral facial region and right premaxillary soft tissues which may be posttraumatic; correlate with physical exam findings.
--- NOTE | ~2020-08-04 | XR_ITS ---
EXAMINATION: XR CHEST CLINICAL INFORMATION: Acute mental status change. Increased respiratory rate. COMPARISON: Previous chest x-ray most recent March 2020 TECHNIQUE: Frontal view of the chest was obtained. FINDINGS: The patient is rotated to the right. Taking this into account, the cardiac and mediastinal contours are unremarkable. There is a left subclavian pacemaker. The leads appear different in position however this may be related to rotation as well. The lungs are clear. There is no pleural effusion or pneumothorax. Bony structures are unremarkable. XR/XR chest 1V IMPRESSION: Limited rotated chest x-ray. No evidence for acute disease in the chest.
[2020-08-04 12:08] VITALS: BP 108/58; BP 113/79; PULSE 108; PULSE 109; RESP 26; TEMP 36.3; O2SAT 100; BMI 35.4
--- NOTE | 2020-08-04 12:49 | ED_ITS ---
HPI - Seizure General Chief Complaint: Seizure Stated Complaint: SEIZURE Time Seen by Provider: 08/04/20 12:09 Source: family, EMS and old records reviewed Mode of arrival: EMS Limitations: altered mental status History of Present Illness HPI Narrative: 44 y/o female with history of epilepsy, DVT's and PE on Coumadin, bipolar disorder, dissociative disorder, fibromyalgia, PUD, cervical cancer, asthma, complete heart block s/p PPM and s/p gastric bypass 1995 now reversed who presents to the ED via EMS with reports of seizure like activity at home. History was obtained from EMS and patient's significant other as patient is non- verbal on arrival. Per her boyfriend the patient started having generalized tonic clonic movements and fell out of bed. She hit her head on the bedside table. There was a tackle box of medications at the bedside and it is unknown if she has been compliant with her lamotrigine and topiramate. Boyfriend states she only leaves her bedroom to use the bathroom. She has had a few falls recently without any apparent injuries. Documentation from prior admissions report frequent falls. She was admitted to ICU in March with supratherapeutic INR and RP bleed requiring ICU level of care. MD complaint: seizure Onset (ago): minute(s) (44) Description of Episode: tonic-clonic movement and post-event confusion Witnessed: Yes - by Other Trauma: Yes Seizure History: Yes Place: Home Possible Precipitating Event: none Treatments prior to arrival: none Related Data Home Medications Medication Instructions Recorded Confirmed Combivent Respimat 1 puff PO QID 03/15/20 08/04/20 pffcpraesm-[id number]-mxzy 1 tab PO TID PRN 03/15/20 08/04/20 diazepam 1 tab PO BEDTIME 03/15/20 08/04/20 dicyclomine 1 tab PO QID 03/15/20 08/04/20 hydroxyzine pamoate 1 cap PO TID PRN 03/15/20 08/04/20 lamotrigine 1 tab PO BID 03/15/20 08/04/20 lamotrigine 1 tab PO DAILY 03/15/20 08/04/20 loratadine 1 tab PO DAILY 03/15/20 08/04/20 olanzapine 1 tab PO BEDTIME 03/15/20 08/04/20 ondansetron HCl 1 tab PO TID PRN 03/15/20 08/04/20 prazosin 1 cap PO BEDTIME 03/15/20 08/04/20 pregabalin 1 cap PO TID 03/15/20 08/04/20 sucralfate 10 ml PO QIDACHS 03/15/20 08/04/20 topiramate 200 mg PO DAILY 03/15/20 08/04/20 topiramate 400 mg PO BEDTIME 03/15/20 08/04/20 zonisamide 1 cap PO BID 03/15/20 08/04/20 diazepam 1 tab PO BID@08,14 06/17/20 08/04/20 fluticasone propionate 2 spray INTRANASAL BID 06/17/20 08/04/20 omeprazole 1 cap PO BID 06/17/20 08/04/20 tizanidine 1 tab PO TID PRN 06/17/20 08/04/20 warfarin 10 mg PO SUTUTHSA@16 06/17/20 08/04/20 warfarin 15 mg PO MOWEFR@16 06/17/20 08/04/20 ipratropium-albuterol 3 ml INHALATION QID PRN 08/04/20 08/04/20 Allergies Allergy/AdvReac Type Severity Reaction Status Date / Time bee pollen [Bee Stings] Allergy Severe ANAPHYLAXIS Verified 06/17/20 04:16 honey Allergy Severe throat Verified 06/17/20 04:16 closes mushroom Allergy Severe ANAPHYLAXIS Verified 06/17/20 04:16 aspirin Allergy Unknown BLEED Verified 06/17/20 04:16 Bleach (Sodium Hypochlorite) Allergy Unknown RASH Verified 06/17/20 04:16 [BLEACH (SODIUM HYPOCHLORITE)] lactose [Lactose] Allergy Unknown STOMACH Verified 06/17/20 04:16 ACHE morphine [Morphine] Allergy Unknown ITCHING Verified 06/17/20 04:16 ibuprofen AdvReac Unknown Stomach Verified 06/17/20 04:16 Upset NSAIDS (Non-Steroidal AdvReac Unknown BLEED,COUMA Verified 06/17/20 04:16 Anti-Inflamma DIN [Nsaids] Review of Systems Review of Systems: Yes Unobtainable due to mental status PMFSH Past Medical History Attestation statement: The following information was validated with the patient. Medical History Anemia Cerebral aneurysm Cervical cancer Chronic migraine COPD (chronic obstructive pulmonary disease) Deep vein thrombosis Elevated INR Falls Heart failure Hemorrhagic shock Herniated disc Meningioma Neuropathy Pacemaker Pulmonary embolism Seizure disorder Stomach cancer Urinary retention Surgical History Gastric bypass status for obesity Hx of cholecystectomy Social History Social History Household Members: Significant Other Housing: Apartment Do you presently have visiting nurse or other home services: Yes ([facility] ) Unable to assess alcohol history related to: Unable to respond Alcohol intake: unknown Patient Tobacco Use Status: Tobacco use Unknown Cigarettes Per Day: 10 Second Hand Smoke Exposure: Yes Use of substances other than those prescribed or required for medical reasons: Unknown Substance Use Type: Marijuana Advance Directives: No Advance Directives Information Provided: No Patient : No service: No Current occupational status: disabled Physical Exam Vital Signs: Vital Signs: Last Vital Signs Temp 97.8 F 08/04/20 14:12 Pulse 103 H 08/04/20 14:12 Resp 24 H 08/04/20 14:12 BP 123/87 08/04/20 14:12 Pulse Ox 99 08/04/20 14:12 Body Mass Index 35.4 Appearance: Alert. No acute distress. Eyes: Pupils equal, round and reactive to light. Tracks, no nystagmus ENT:normal external inspection Neck: Normal inspection. Neck supple. CVS: Tachycardic, regular rhythm. Pulses normal. Respiratory: No respiratory distress. Breath sounds normal. Abdomen: Obese, Soft and nontender. well healed longitudinal surgical scar, +BS x4 Skin: Skin warm and dry. Normal skin color. Normal skin turgor. No rashes. Extremities: No lower extremity edema. Neuro: Awake and alert, tracks, nonverbal, not following commands. Course Course Course Narrative: 44 y/o female with multiple comorbidities including epilepsy presents with seizure activity at home today with fall out of bed with head strike. Will get CT head and metabolic workup. Suspect medication noncompliance. 1 mg IV ativan ordered. She is tracking, doubt ongoing seizures or non- convulsive seizures. She is protecting her airway. Reevaluation(s) Reevaluation #1: 13:40 - H/H 15/47.5 consistent with hemocentration and dehydration. WBC 14.6 with lactic acid 6.8 most likely due to seizure. 2L IVF ordered. INR is low 1.1, patient is likely not taking any of her medications. No evidence of severe sepsis at this time. UA is negative. Per prior documentation her DVT/PE was ~2004. Given her multiple falls will hold off on anticoagulation for now. Still not verbal at this time Reevaluation #2: 15:30 - CT head without ICH. Nonspecific mild soft tissue stranding and inflammatory changes in the right lateral facial region. Repeat lactic acid pending. Dr. Guillen tigertexted for admission. MDM - Seizure Differential Diagnosis Differential diagnosis: Likely intractable seizure disorder, focal seizure, gen eralized seizure, epileptic seizure and status epilepticus Medical Records Attestation: I reviewed the patient's medical records. Lab Data Attestation: I reviewed the patient's lab results. Result diagrams: 08/04/20 12:44 08/04/20 12:47 Labs: Lab Results 08/04/20 08/04/20 08/04/20 Range/Units 12:44 12:44 12:44 WBC 14.6 H (4.8-10.8) X10*3/uL RBC 6.27 H D (4.20-5.50) X10*6/uL Hgb 15.0 D (12.0-16.0) g/dl Hct 47.5 H D (37-47) % MCV 75.8 L (80-98) fL MCH 23.9 L (27.0-33.0) pg MCHC 31.6 (31.0-35.0) g/dl RDW 18.8 H (11.0-16.0) % Plt Count TNP MPV Not Reportable Immature Gran % (Auto) 0.5 H (0.0-0.4) % Neut % (Auto) 90.7 H (45-73) % Lymph % (Auto) 4.5 L (20-40) % [place] % (Auto) 4.1 (2-11) % Eos % (Auto) 0.1 (0-4) % Baso % (Auto) 0.1 (0-2) % Lymph # (Auto) 0.7 L (1.2-4.9) X10*3/uL [place] # (Auto) 0.6 (0.1-1.2) X10*3/uL Eos # (Auto) 0.0 (0.0-0.4) X10*3/uL Baso # (Auto) 0.0 (0.0-0.2) X10*3/uL Abs Immat Gran (auto) 0.08 H (0.00-0.03) X10*3/uL Absolute Neuts (auto) 13.2 H (2.0-8.3) X10*3/uL Absolute Nucleated RBC 0.000 (0.0-0.012) X10*3/uL Nucleated RBC % (auto) 0.0 (0.0-0.2) /100WBC Smear Tech's Comments VERIFIED PT 12.7 D (10.8-13.0) SEC INR 1.1 (0.9-1.1) APTT 33.7 (24.1-38.0) SEC Sodium (135-145) mmol/L Potassium (3.3-5.1) mmol/L Chloride (96-108) mmol/L Carbon Dioxide (22-29) mmol/L Anion Gap (12-20) BUN (9-16) mg/dL Creatinine (0.5-1.4) mg/dL Estim Creat Clear Calc Estimated GFR POC Glucose (60-115) mg/dL Random Glucose (60-115) mg/dL Lactic Acid (0.5-2.0) mmol/L Calcium (8.4-10.2) mg/dL Magnesium 2.3 (1.6-2.6) mg/dL Total Bilirubin 0.5 (0.0-1.0) mg/dL Direct Bilirubin 0.2 (0.0-0.5) mg/dL AST 18 (5-31) U/L ALT 13 (0-31) U/L Alkaline Phosphatase 102 (39-117) U/L Total Creatine Kinase (26-140) U/L Total Protein 7.0 (6.5-8.0) g/dL Albumin 4.0 D (3.5-5.0) g/dL Urine Color Urine Appearance Urine pH (5.0-8.0) Ur Specific [place] (1.005-1.025) Urine Protein (NEG-TRACE) MG/DL Urine Glucose (UA) (NEG) MG/DL Urine Ketones (NEG) MG/DL Urine Blood (NEG) Urine Nitrite (NEG) Ur Leukocyte Esterase (NEG) Urine RBC (0) /HPF Urine WBC (0-4) /HPF Ur Squamous Epith Cells /LPF Amorphous Sediment /LPF Urine Bacteria /LPF Urine Mucus /LPF Urine Test (NEGATIVE) Urine Opiates Screen (Not Detect) Ur Barbiturates Screen (Not Detect) Ur Phencyclidine Scrn (Not Detect) Ur Amphetamines Screen (Not Detect) U Benzodiazepines Scrn (Not Detect) Urine Cocaine Screen (Not Detect) U Marijuana (THC) Screen (Not Detect) Ethyl Alcohol mg/dL COVID-19 (DUTCH) (Negative) COVID-19 Clin Com 08/04/20 08/04/20 08/04/20 Range/Units 12:44 12:44 12:44 WBC (4.8-10.8) X10*3/uL RBC (4.20-5.50) X10*6/uL Hgb (12.0-16.0) g/dl Hct (37-47) % MCV (80-98) fL MCH (27.0-33.0) pg MCHC (31.0-35.0) g/dl RDW (11.0-16.0) % Plt Count MPV Immature Gran % (Auto) (0.0-0.4) % Neut % (Auto) (45-73) % Lymph % (Auto) (20-40) % [place] % (Auto) (2-11) % Eos % (Auto) (0-4) % Baso % (Auto) (0-2) % Lymph # (Auto) (1.2-4.9) X10*3/uL [place] # (Auto) (0.1-1.2) X10*3/uL Eos # (Auto) (0.0-0.4) X10*3/uL Baso # (Auto) (0.0-0.2) X10*3/uL Abs Immat Gran (auto) (0.00-0.03) X10*3/uL Absolute Neuts (auto) (2.0-8.3) X10*3/uL Absolute Nucleated RBC (0.0-0.012) X10*3/uL Nucleated RBC % (auto) (0.0-0.2) /100WBC Smear Tech's Comments PT (10.8-13.0) SEC INR (0.9-1.1) APTT (24.1-38.0) SEC Sodium (135-145) mmol/L Potassium (3.3-5.1) mmol/L Chloride (96-108) mmol/L Carbon Dioxide (22-29) mmol/L Anion Gap (12-20) BUN (9-16) mg/dL Creatinine (0.5-1.4) mg/dL Estim Creat Clear Calc Estimated GFR POC Glucose (60-115) mg/dL Random Glucose (60-115) mg/dL Lactic Acid 6.8 H* (0.5-2.0) mmol/L Calcium (8.4-10.2) mg/dL Magnesium (1.6-2.6) mg/dL Total Bilirubin (0.0-1.0) mg/dL Direct Bilirubin (0.0-0.5) mg/dL AST (5-31) U/L ALT (0-31) U/L Alkaline Phosphatase (39-117) U/L Total Creatine Kinase 33 (26-140) U/L Total Protein (6.5-8.0) g/dL Albumin (3.5-5.0) g/dL Urine Color Urine Appearance Urine pH (5.0-8.0) Ur Specific [place] (1.005-1.025) Urine Protein (NEG-TRACE) MG/DL Urine Glucose (UA) (NEG) MG/DL Urine Ketones (NEG) MG/DL Urine Blood (NEG) Urine Nitrite (NEG) Ur Leukocyte Esterase (NEG) Urine RBC (0) /HPF Urine WBC (0-4) /HPF Ur Squamous Epith Cells /LPF Amorphous Sediment /LPF Urine Bacteria /LPF Urine Mucus /LPF Urine Test (NEGATIVE) Urine Opiates Screen (Not Detect) Ur Barbiturates Screen (Not Detect) Ur Phencyclidine Scrn (Not Detect) Ur Amphetamines Screen (Not Detect) U Benzodiazepines Scrn (Not Detect) Urine Cocaine Screen (Not Detect) U Marijuana (THC) Screen (Not Detect) Ethyl Alcohol mg/dL COVID-19 (DUTCH) Negative (Negative) COVID-19 Clin Com See Note 08/04/20 08/04/20 08/04/20 Range/Units 12:47 12:50 13:09 WBC (4.8-10.8) X10*3/uL RBC (4.20-5.50) X10*6/uL Hgb (12.0-16.0) g/dl Hct (37-47) % MCV (80-98) fL MCH (27.0-33.0) pg MCHC (31.0-35.0) g/dl RDW (11.0-16.0) % Plt Count MPV Immature Gran % (Auto) (0.0-0.4) % Neut % (Auto) (45-73) % Lymph % (Auto) (20-40) % [place] % (Auto) (2-11) % Eos % (Auto) (0-4) % Baso % (Auto) (0-2) % Lymph # (Auto) (1.2-4.9) X10*3/uL [place] # (Auto) (0.1-1.2) X10*3/uL Eos # (Auto) (0.0-0.4) X10*3/uL Baso # (Auto) (0.0-0.2) X10*3/uL Abs Immat Gran (auto) (0.00-0.03) X10*3/uL Absolute Neuts (auto) (2.0-8.3) X10*3/uL Absolute Nucleated RBC (0.0-0.012) X10*3/uL Nucleated RBC % (auto) (0.0-0.2) /100WBC Smear Tech's Comments PT (10.8-13.0) SEC INR (0.9-1.1) APTT (24.1-38.0) SEC Sodium 140 (135-145) mmol/L Potassium 3.4 (3.3-5.1) mmol/L Chloride 110 H (96-108) mmol/L Carbon Dioxide 16 L (22-29) mmol/L Anion Gap 17 (12-20) BUN 5 L (9-16) mg/dL Creatinine 0.80 (0.5-1.4) mg/dL Estim Creat Clear Calc 105.7 Estimated GFR > 60 POC Glucose 107 (60-115) mg/dL Random Glucose 113 D (60-115) mg/dL Lactic Acid (0.5-2.0) mmol/L Calcium 9.4 D (8.4-10.2) mg/dL Magnesium (1.6-2.6) mg/dL Total Bilirubin (0.0-1.0) mg/dL Direct Bilirubin (0.0-0.5) mg/dL AST (5-31) U/L ALT (0-31) U/L Alkaline Phosphatase (39-117) U/L Total Creatine Kinase (26-140) U/L Total Protein (6.5-8.0) g/dL Albumin (3.5-5.0) g/dL Urine Color YELLOW Urine Appearance HAZY Urine pH 6.0 (5.0-8.0) Ur Specific [place] >= 1.030 H (1.005-1.025) Urine Protein 2+ H (NEG-TRACE) MG/DL Urine Glucose (UA) NEG (NEG) MG/DL Urine Ketones 5 (NEG) MG/DL Urine Blood TRACE (NEG) Urine Nitrite NEG (NEG) Ur Leukocyte Esterase NEG (NEG) Urine RBC 5-9 H (0) /HPF Urine WBC 0 (0-4) /HPF Ur Squamous Epith Cells 1+ /LPF Amorphous Sediment 2+ /LPF Urine Bacteria NONE /LPF Urine Mucus TRACE /LPF Urine Test (NEGATIVE) Urine Opiates Screen (Not Detect) Ur Barbiturates Screen (Not Detect) Ur Phencyclidine Scrn (Not Detect) Ur Amphetamines Screen (Not Detect) U Benzodiazepines Scrn (Not Detect) Urine Cocaine Screen (Not Detect) U Marijuana (THC) Screen (Not Detect) Ethyl Alcohol mg/dL COVID-19 (DUTCH) (Negative) COVID-19 Clin Com 08/04/20 08/04/20 08/04/20 Range/Units 13:09 13:09 13:30 WBC (4.8-10.8) X10*3/uL RBC (4.20-5.50) X10*6/uL Hgb (12.0-16.0) g/dl Hct (37-47) % MCV (80-98) fL MCH (27.0-33.0) pg MCHC (31.0-35.0) g/dl RDW (11.0-16.0) % Plt Count MPV Immature Gran % (Auto) (0.0-0.4) % Neut % (Auto) (45-73) % Lymph % (Auto) (20-40) % [place] % (Auto) (2-11) % Eos % (Auto) (0-4) % Baso % (Auto) (0-2) % Lymph # (Auto) (1.2-4.9) X10*3/uL [place] # (Auto) (0.1-1.2) X10*3/uL Eos # (Auto) (0.0-0.4) X10*3/uL Baso # (Auto) (0.0-0.2) X10*3/uL Abs Immat Gran (auto) (0.00-0.03) X10*3/uL Absolute Neuts (auto) (2.0-8.3) X10*3/uL Absolute Nucleated RBC (0.0-0.012) X10*3/uL Nucleated RBC % (auto) (0.0-0.2) /100WBC Smear Tech's Comments PT (10.8-13.0) SEC INR (0.9-1.1) APTT (24.1-38.0) SEC Sodium (135-145) mmol/L Potassium (3.3-5.1) mmol/L Chloride (96-108) mmol/L Carbon Dioxide (22-29) mmol/L Anion Gap (12-20) BUN (9-16) mg/dL Creatinine (0.5-1.4) mg/dL Estim Creat Clear Calc Estimated GFR POC Glucose (60-115) mg/dL Random Glucose (60-115) mg/dL Lactic Acid (0.5-2.0) mmol/L Calcium (8.4-10.2) mg/dL Magnesium (1.6-2.6) mg/dL Total Bilirubin (0.0-1.0) mg/dL Direct Bilirubin (0.0-0.5) mg/dL AST (5-31) U/L ALT (0-31) U/L Alkaline Phosphatase (39-117) U/L Total Creatine Kinase (26-140) U/L Total Protein (6.5-8.0) g/dL Albumin (3.5-5.0) g/dL Urine Color Urine Appearance Urine pH (5.0-8.0) Ur Specific [place] (1.005-1.025) Urine Protein (NEG-TRACE) MG/DL Urine Glucose (UA) (NEG) MG/DL Urine Ketones (NEG) MG/DL Urine Blood (NEG) Urine Nitrite (NEG) Ur Leukocyte Esterase (NEG) Urine RBC (0) /HPF Urine WBC (0-4) /HPF Ur Squamous Epith Cells /LPF Amorphous Sediment /LPF Urine Bacteria /LPF Urine Mucus /LPF Urine Test NEGATIVE (NEGATIVE) Urine Opiates Screen Not Detected (Not Detect) Ur Barbiturates Screen Not Detected (Not Detect) Ur Phencyclidine Scrn Not Detected (Not Detect) Ur Amphetamines Screen Not Detected (Not Detect) U Benzodiazepines Scrn POSITIVE H (Not Detect) Urine Cocaine Screen Not Detected (Not Detect) U Marijuana (THC) Screen Not Detected (Not Detect) Ethyl Alcohol < 10 mg/dL COVID-19 (DUTCH) (Negative) COVID-19 Clin Com 08/04/20 Range/Units 15:00 WBC (4.8-10.8) X10*3/uL RBC (4.20-5.50) X10*6/uL Hgb (12.0-16.0) g/dl Hct (37-47) % MCV (80-98) fL MCH (27.0-33.0) pg MCHC (31.0-35.0) g/dl RDW (11.0-16.0) % Plt Count MPV Immature Gran % (Auto) (0.0-0.4) % Neut % (Auto) (45-73) % Lymph % (Auto) (20-40) % [place] % (Auto) (2-11) % Eos % (Auto) (0-4) % Baso % (Auto) (0-2) % Lymph # (Auto) (1.2-4.9) X10*3/uL [place] # (Auto) (0.1-1.2) X10*3/uL Eos # (Auto) (0.0-0.4) X10*3/uL Baso # (Auto) (0.0-0.2) X10*3/uL Abs Immat Gran (auto) (0.00-0.03) X10*3/uL Absolute Neuts (auto) (2.0-8.3) X10*3/uL Absolute Nucleated RBC (0.0-0.012) X10*3/uL Nucleated RBC % (auto) (0.0-0.2) /100WBC Smear Tech's Comments PT (10.8-13.0) SEC INR (0.9-1.1) APTT (24.1-38.0) SEC Sodium (135-145) mmol/L Potassium (3.3-5.1) mmol/L Chloride (96-108) mmol/L Carbon Dioxide (22-29) mmol/L Anion Gap (12-20) BUN (9-16) mg/dL Creatinine (0.5-1.4) mg/dL Estim Creat Clear Calc Estimated GFR POC Glucose (60-115) mg/dL Random Glucose (60-115) mg/dL Lactic Acid 3.0 H* (0.5-2.0) mmol/L Calcium (8.4-10.2) mg/dL Magnesium (1.6-2.6) mg/dL Total Bilirubin (0.0-1.0) mg/dL Direct Bilirubin (0.0-0.5) mg/dL AST (5-31) U/L ALT (0-31) U/L Alkaline Phosphatase (39-117) U/L Total Creatine Kinase (26-140) U/L Total Protein (6.5-8.0) g/dL Albumin (3.5-5.0) g/dL Urine Color Urine Appearance Urine pH (5.0-8.0) Ur Specific [place] (1.005-1.025) Urine Protein (NEG-TRACE) MG/DL Urine Glucose (UA) (NEG) MG/DL Urine Ketones (NEG) MG/DL Urine Blood (NEG) Urine Nitrite (NEG) Ur Leukocyte Esterase (NEG) Urine RBC (0) /HPF Urine WBC (0-4) /HPF Ur Squamous Epith Cells /LPF Amorphous Sediment /LPF Urine Bacteria /LPF Urine Mucus /LPF Urine Test (NEGATIVE) Urine Opiates Screen (Not Detect) Ur Barbiturates Screen (Not Detect) Ur Phencyclidine Scrn (Not Detect) Ur Amphetamines Screen (Not Detect) U Benzodiazepines Scrn (Not Detect) Urine Cocaine Screen (Not Detect) U Marijuana (THC) Screen (Not Detect) Ethyl Alcohol mg/dL COVID-19 (DUTCH) (Negative) COVID-19 Clin Com ECG Data Attestation: I personally reviewed and interpreted this ECG as follows: ECG interpretation date: 08/04/20 ECG interpretation time: 14:11 Prior ECG tracings: available for review Interpretation: sinus tachycardia, HR 100 bpm, normal MA interval, normal QTc, no ST segment elevations or depressions. Critical Care Time Critical Care Time Critical Care Time: Yes Total Critical Care Time: 38 Attestation: I attest to critical care time spent caring for this patient - time spent reviewing records, labs, imaging, treating seizure and lactic acidosis. required frequent reassessments of mental status. Discharge Plan Discharge Clinical Impression: Seizure, Encephalopathy, Lactic acidosis Patient Disposition: Admitted As Inpatient
[2020-08-04 12:55] LABS: Basophils Percent Auto 0.1 % (0-2); Eosinophils Percent Auto 0.1 % (0-4); Hematocrit 47.5 % (37-47); Imm Gran Abs Auto 0.08 X10*3/uL (0.00-0.03); Imm Gran Pct Auto 0.5 % (0.0-0.4); Lymphocytes Absolute Auto 0.7 X10*3/uL (1.2-4.9); Lymphocytes Percent Auto 4.5 % (20-40); MANUAL DIFF FLAG SCAN; Mean Corpuscular HGB Conc 31.6 g/dl (31.0-35.0); Mean Corpuscular Hemoglobin 23.9 pg (27.0-33.0); Mean Corpuscular Volume 75.8 fL (80-98); Monocytes Absolute Auto 0.6 X10*3/uL (0.1-1.2); Monocytes Percent Auto 4.1 % (2-11); Neutrophils Absolute Auto 13.2 X10*3/uL (2.0-8.3); Neutrophils Percent Auto 90.7 % (45-73); PLT CLUMP 1; Red Blood Count 6.27 X10*6/uL (4.20-5.50); Red Cell Distribution Width 18.8 % (11.0-16.0); SCAN SMEAR FLAG 1
[2020-08-04] MEDS: 0.9 % Sodium Chloride 1,000 ML 999 ML IVCONT ×2 (13:10→15:52)
[2020-08-04] MEDS: LORazepam 2 MG/ML VIAL 1 MG IVPUSH (13:10)
[2020-08-04 13:11] LABS: INTERNATIONAL NORM RATIO 1.1 (0.9-1.1); Prothrombin Time 12.7 SEC (10.8-13.0)
[2020-08-04 13:14] LABS: Partial Thromboplastin Time 33.7 SEC (24.1-38.0)
[2020-08-04 13:16] LABS: White Blood Count 14.6 X10*3/uL (4.8-10.8)
[2020-08-04 13:17] LABS: Glucose, Whole Blood 107 mg/dL (60-115)
[2020-08-04 13:17] LABS: SLIDE REVIEW VERIFIED
[2020-08-04 13:19] LABS: COVID-19 Test Negative (Negative)
[2020-08-04 13:21] LABS: Glucose Urine UA NEG (NEG); Leukocyte Esterase Urine NEG (NEG); Nitrite Urine NEG (NEG); Specific Gravity - Urine >= 1.030 (1.005-1.025); Urine Blood TRACE (NEG); Urine Ketones 5 MG/DL (NEG); Urine Protein 2+ MG/DL (NEG-TRACE)
[2020-08-04 13:23] LABS: Appearance Urine HAZY; Color Urine YELLOW
[2020-08-04 13:24] LABS: UPreg QC Valid YES; Urine Pregnancy NEGATIVE (NEGATIVE)
--- NOTE | 2020-08-04 13:25 | ECG_ITS ---
Test Reason : SEIZURE Blood Pressure : / mmHG Vent. Rate : 100 BPM Atrial Rate : 100 BPM P-R Int : 162 ms QRS Dur : 086 ms QT Int : 356 ms P-R-T Axes : 069 040 056 degrees QTc Int : 459 ms Normal sinus rhythm Normal ECG When compared with ECG of 16-JUN-2020 22:43, No significant change was found Referred By: Buffy Hutchins Electronically Signed By:Dex Frausto
--- NOTE | 2020-08-04 13:25 | HE.PHANOTE ---
Med Rec completed using Rx claim hx as pt had [facility] will re-try to visit to see if family member has med list
[2020-08-04 13:28] LABS: Anion Gap 17 (12-20); Blood Urea Nitrogen 5 mg/dL (9-16); Calcium 9.4 mg/dL (8.4-10.2); Carbon Dioxide 16 mmol/L (22-29); Chloride 110 mmol/L (96-108); Creatinine Clr Calc Pharmacy 105.7; Estimated Glomerular Filt Rate > 60; Glucose Random 113 mg/dL (60-115); Potassium 3.4 mmol/L (3.3-5.1); Sodium 140 mmol/L (135-145)
[2020-08-04 13:29] LABS: Lactic Acid 6.8 mmol/L (0.5-2.0)
[2020-08-04 13:30] LABS: Alanine Aminotransferase 13 U/L (0-31); Alkaline Phosphatase 102 U/L (39-117); Aspartate Amino Transferase 18 U/L (5-31); Bilirubin Direct 0.2 mg/dL (0.0-0.5); Bilirubin Total 0.5 mg/dL (0.0-1.0); Magnesium 2.3 mg/dL (1.6-2.6)
[2020-08-04 13:32] LABS: Amorphous Sediment Urine 2+ /LPF; Mucus Urine TRACE /LPF; Squamous Epithelial Cell Urine 1+ /LPF; WBC Urine 0 /HPF (0-4)
--- NOTE | 2020-08-04 13:43 | PC.NURSE ---
Patients significant other contacted in order to find out the backstory to what brought the patient in to the emergency department today. Per patients significant other, he heard a thud and upon arrival to the room- saw the patient on the floor having seizure like activity. Per sig other, pt needs assistance with ADLS, does not leave the room unless to use the bathroom and he is unsure about the patients med compliance.
[2020-08-04 13:49] LABS: Amphetamine Screen Urine Not Detected (Not Detect); Barbiturates, Urine Not Detected (Not Detect); Benzodiazepines Screen Urine POSITIVE (Not Detect); Cannabinoid Screen Urine Not Detected (Not Detect); Cocaine Screen Urine Not Detected (Not Detect); Opiate Screen Urine Not Detected (Not Detect); Phencyclidine Screen Urine Not Detected (Not Detect)
[2020-08-04 13:59] LABS: Ethanol < 10 mg/dL
[2020-08-04 14:12] VITALS: BP 123/87; PULSE 103; RESP 24; TEMP 36.6; O2SAT 99
[2020-08-04 14:47] LABS: Reflex Lactate? Lactic Acid Added
--- NOTE | 2020-08-04 14:58 | PC.NURSE ---
This RN spoke to the patients mother Moni who stated that the patient has been feeling generalized malaise lately/for a few weeks associated with body aches. Pt's mother was not able to identify if the patient has or has not been compliant with her medication and denies any prior instances where the patient has acted similar to her behavior at this time.
--- NOTE | 2020-08-04 15:01 | PC.NURSE ---
Pt is difficult stick- several attempts at second IV, Dr. Gates at bedside w/ US, unable to obtain second line. Fluids infusing slowly via 22G R wrist. Pt remains non-verbal, tracking with eyes, in no apparent distress, vss.
--- NOTE | 2020-08-04 15:25 | PC.NURSE ---
Pt remains drowsy, arousable to verbal stimuli, non-verbal at this time, offered po fluids and accepted multiple small sips when straw was brought to pts lips.
[2020-08-04 16:02] VITALS: BP 117/81; PULSE 100; RESP 18; TEMP 36.6; O2SAT 100
--- NOTE | 2020-08-04 16:15 | PM.IMHP ---
History of Present Illness Date of Service: 08/04/20 Chief Complaint: seizure 44F brought in after boyfriend noticed that she had convulsions and fell out of bed and hit her head. Patient has a history of seizures both epileptic and nonepileptic. She is supposed to be on Lamictal and trazodone as well as diazepam but unclear if she has been compliant. Based on her INR of 1.1 it seems like she has been noncompliant with her Coumadin and therefore likely noncompliant with her other medications. In ED noted to have lactate of 6.8 favoring epileptic seizure. She was given Ativan and 2 L IV fluid. Review of Systems Review of Systems: Yes Unobtainable due to mental condition [facility] Medical History Anemia Cerebral aneurysm Cervical cancer Chronic migraine COPD (chronic obstructive pulmonary disease) Deep vein thrombosis Elevated INR [place] Heart failure Hemorrhagic shock Herniated disc Meningioma Neuropathy Pacemaker Pulmonary embolism Seizure disorder Stomach cancer Urinary retention Surgical History Gastric bypass status for obesity Hx of cholecystectomy Social History Household Members: Significant Other Housing: Apartment Do you presently have visiting nurse or other home services: Yes (OPERATING ROOM [employer]GICAL [employer]CH[employer]) Unable to assess alcohol history related to: Unable to respond Alcohol intake: unknown Patient Tobacco Use Status: Tobacco use Unknown Cigarettes Per Day: 10 Second Hand Smoke Exposure: Yes Use of substances other than those prescribed or required for medical reasons: Unknown Substance Use Type: Marijuana Advance Directives: No Advance Directives Information Provided: No Patient : No service: No Current occupational status: disabled Meds Allergies Allergy/AdvReac Type Severity Reaction Status Date / Time bee pollen [Bee Stings] Allergy Severe ANAPHYLAXIS Verified 06/17/20 04:16 honey Allergy Severe throat Verified 06/17/20 04:16 closes mushroom Allergy Severe ANAPHYLAXIS Verified 06/17/20 04:16 aspirin Allergy Unknown BLEED Verified 06/17/20 04:16 Bleach (Sodium Hypochlorite) Allergy Unknown RASH Verified 06/17/20 04:16 [BLEACH (SODIUM HYPOCHLORITE)] lactose [Lactose] Allergy Unknown STOMACH Verified 06/17/20 04:16 ACHE morphine [Morphine] Allergy Unknown ITCHING Verified 06/17/20 04:16 ibuprofen AdvReac Unknown Stomach Verified 06/17/20 04:16 Upset NSAIDS (Non-Steroidal AdvReac Unknown BLEED,COUMA Verified 06/17/20 04:16 Anti-Inflamma DIN [Nsaids] Active Medications: Current Medications Generic Name Dose Route Start Last Admin Trade Name Freq PRN Reason Stop Dose Admin Pharmacy Consult 1 each 08/04/20 12:18 Consult Rx Perform Med Rec MISCELLANE ONCE PRN Consult order Home Medications Medication Instructions Recorded Confirmed Last Taken Type Combivent Respimat 1 puff PO QID 03/15/20 08/04/20 03/15/20 History ajyegdkvud-nqjphbhcgqsyy-zlso 1 tab PO TID PRN 03/15/20 08/04/20 03/15/20 History diazepam 1 tab PO BEDTIME 03/15/20 08/04/20 03/14/20 History dicyclomine 1 tab PO QID 03/15/20 08/04/20 03/15/20 History hydroxyzine pamoate 1 cap PO TID PRN 03/15/20 08/04/20 03/15/20 History lamotrigine 1 tab PO BID 03/15/20 08/04/20 03/15/20 History lamotrigine 1 tab PO DAILY 03/15/20 08/04/20 03/15/20 History loratadine 1 tab PO DAILY 03/15/20 08/04/20 03/15/20 History olanzapine 1 tab PO BEDTIME 03/15/20 08/04/20 03/14/20 History ondansetron HCl 1 tab PO TID PRN 03/15/20 08/04/20 03/15/20 History prazosin 1 cap PO BEDTIME 03/15/20 08/04/20 03/14/20 History pregabalin 1 cap PO TID 03/15/20 08/04/20 03/15/20 History sucralfate 10 ml PO QIDACHS 03/15/20 08/04/20 03/15/20 08:00 History topiramate 200 mg PO DAILY 03/15/20 08/04/20 03/15/20 History topiramate 400 mg PO BEDTIME 03/15/20 08/04/20 03/14/20 History zonisamide 1 cap PO BID 03/15/20 08/04/20 03/15/20 History diazepam 1 tab PO BID@08,14 06/17/20 08/04/20 Unknown History fluticasone propionate 2 spray INTRANASAL BID 06/17/20 08/04/20 Unknown History omeprazole 1 cap PO BID 06/17/20 08/04/20 Unknown History tizanidine 1 tab PO TID PRN 06/17/20 08/04/20 Unknown History warfarin 10 mg PO SUTUTHSA@16 06/17/20 08/04/20 Unknown History warfarin 15 mg PO MOWEFR@16 06/17/20 08/04/20 Unknown History ipratropium-albuterol 3 ml INHALATION QID PRN 08/04/20 08/04/20 Unknown History Physical Exam Vital Signs and Narrative: Vital Signs: Last Vital Signs Temp 98 F 08/04/20 16:02 Pulse 100 08/04/20 16:02 Resp 18 08/04/20 16:02 BP 117/81 08/04/20 16:02 Pulse Ox 100 08/04/20 16:02 Body Mass Index 35.4 General: no acute distress HEENT: atraumatic Neck: normal to visual inspection CVS: S1, S2, RRR Resp: CTA bilateral Chest: non tender GI: soft, non tender, non distended : no CVA tenderness Skin: no rashes Extremities: no edema Neuro: awake, tracking, not talking, responding to painful stimuli, not following directions Psych: flat affect Results Labs CBC and Chem 7: 08/04/20 12:44 08/04/20 12:47 Labs: Laboratory Results - last 24 hr 08/04/20 08/04/20 08/04/20 12:44 12:44 12:44 MCV 75.8 L MCH 23.9 L MCHC 31.6 RDW 18.8 H Plt Count TNP MPV Not Reportable Immature Gran % (Auto) 0.5 H Neut % (Auto) 90.7 H Lymph % (Auto) 4.5 L [place] % (Auto) 4.1 Eos % (Auto) 0.1 Baso % (Auto) 0.1 Lymph # (Auto) 0.7 L [place] # (Auto) 0.6 Eos # (Auto) 0.0 Baso # (Auto) 0.0 Abs Immat Gran (auto) 0.08 H Absolute Neuts (auto) 13.2 H Absolute Nucleated RBC 0.000 Nucleated RBC % (auto) 0.0 Smear Tech's Comments VERIFIED PT 12.7 D INR 1.1 APTT 33.7 Anion Gap Estim Creat Clear Calc Estimated GFR POC Glucose Random Glucose Lactic Acid Calcium Magnesium 2.3 Total Bilirubin 0.5 Direct Bilirubin 0.2 AST 18 ALT 13 Alkaline Phosphatase 102 Total Creatine Kinase Total Protein 7.0 Albumin 4.0 D Urine Color Urine Appearance Urine pH Ur Specific [place] Urine Protein Urine Glucose (UA) Urine Ketones Urine Blood Urine Nitrite Ur Leukocyte Esterase Urine RBC Urine WBC Ur Squamous Epith Cells Amorphous Sediment Urine Bacteria Urine Mucus Urine Test Urine Opiates Screen Ur Barbiturates Screen Ur Phencyclidine Scrn Ur Amphetamines Screen U Benzodiazepines Scrn Urine Cocaine Screen U Marijuana (THC) Screen Ethyl Alcohol COVID-19 (DUTCH) [employer] 08/04/20 08/04/20 08/04/20 12:44 12:44 12:44 MCV MCH MCHC RDW Plt Count MPV Immature Gran % (Auto) Neut % (Auto) Lymph % (Auto) [place] % (Auto) Eos % (Auto) Baso % (Auto) Lymph # (Auto) [place] # (Auto) Eos # (Auto) Baso # (Auto) Abs Immat Gran (auto) Absolute Neuts (auto) Absolute Nucleated RBC Nucleated RBC % (auto) Smear Tech's Comments PT INR APTT Anion Gap Estim Creat Clear Calc Estimated GFR POC Glucose Random Glucose Lactic Acid 6.8 H* Calcium Magnesium Total Bilirubin Direct Bilirubin AST ALT Alkaline Phosphatase Total Creatine Kinase 33 Total Protein Albumin Urine Color Urine Appearance Urine pH Ur Specific [place] Urine Protein Urine Glucose (UA) Urine Ketones Urine Blood Urine Nitrite Ur Leukocyte Esterase Urine RBC Urine WBC Ur Squamous Epith Cells Amorphous Sediment Urine Bacteria Urine Mucus Urine Test Urine Opiates Screen Ur Barbiturates Screen Ur Phencyclidine Scrn Ur Amphetamines Screen U Benzodiazepines Scrn Urine Cocaine Screen U Marijuana (THC) Screen Ethyl Alcohol COVID-19 (DUTCH) Negative COVID-19 [employer] See Note 08/04/20 08/04/20 08/04/20 12:47 12:50 13:09 MCV MCH MCHC RDW Plt Count MPV Immature Gran % (Auto) Neut % (Auto) Lymph % (Auto) [place] % (Auto) Eos % (Auto) Baso % (Auto) Lymph # (Auto) [place] # (Auto) Eos # (Auto) Baso # (Auto) Abs Immat Gran (auto) Absolute Neuts (auto) Absolute Nucleated RBC Nucleated RBC % (auto) Smear Tech's Comments PT INR APTT Anion Gap 17 Estim Creat Clear Calc 105.7 Estimated GFR > 60 POC Glucose 107 Random Glucose 113 D Lactic Acid Calcium 9.4 D Magnesium Total Bilirubin Direct Bilirubin AST ALT Alkaline Phosphatase Total Creatine Kinase Total Protein Albumin Urine Color YELLOW Urine Appearance HAZY Urine pH 6.0 Ur Specific [place] >= 1.030 H Urine Protein 2+ H Urine Glucose (UA) NEG Urine Ketones 5 Urine Blood TRACE Urine Nitrite NEG Ur Leukocyte Esterase NEG Urine RBC 5-9 H Urine WBC 0 Ur Squamous Epith Cells 1+ Amorphous Sediment 2+ Urine Bacteria NONE Urine Mucus TRACE Urine Test Urine Opiates Screen Ur Barbiturates Screen Ur Phencyclidine Scrn Ur Amphetamines Screen U Benzodiazepines Scrn Urine Cocaine Screen U Marijuana (THC) Screen Ethyl Alcohol COVID-19 (DUTCH) COVID-19 [employer] 08/04/20 08/04/20 08/04/20 13:09 13:09 13:30 MCV MCH MCHC RDW Plt Count MPV Immature Gran % (Auto) Neut % (Auto) Lymph % (Auto) [place] % (Auto) Eos % (Auto) Baso % (Auto) Lymph # (Auto) [place] # (Auto) Eos # (Auto) Baso # (Auto) Abs Immat Gran (auto) Absolute Neuts (auto) Absolute Nucleated RBC Nucleated RBC % (auto) Smear Tech's Comments PT INR APTT Anion Gap Estim Creat Clear Calc Estimated GFR POC Glucose Random Glucose Lactic Acid Calcium Magnesium Total Bilirubin Direct Bilirubin AST ALT Alkaline Phosphatase Total Creatine Kinase Total Protein Albumin Urine Color Urine Appearance Urine pH Ur Specific [place] Urine Protein Urine Glucose (UA) Urine Ketones Urine Blood Urine Nitrite Ur Leukocyte Esterase Urine RBC Urine WBC Ur Squamous Epith Cells Amorphous Sediment Urine Bacteria Urine Mucus Urine Test NEGATIVE Urine Opiates Screen Not Detected Ur Barbiturates Screen Not Detected Ur Phencyclidine Scrn Not Detected Ur Amphetamines Screen Not Detected U Benzodiazepines Scrn POSITIVE H Urine Cocaine Screen Not Detected U Marijuana (THC) Screen Not Detected Ethyl Alcohol < 10 COVID-19 (DUTCH) COVID-19 [employer] 08/04/20 15:00 MCV MCH MCHC RDW Plt Count MPV Immature Gran % (Auto) Neut % (Auto) Lymph % (Auto) [place] % (Auto) Eos % (Auto) Baso % (Auto) Lymph # (Auto) [place] # (Auto) Eos # (Auto) Baso # (Auto) Abs Immat Gran (auto) Absolute Neuts (auto) Absolute Nucleated RBC Nucleated RBC % (auto) Smear Tech's Comments PT INR APTT Anion Gap Estim Creat Clear Calc Estimated GFR POC Glucose Random Glucose Lactic Acid 3.0 H* Calcium Magnesium Total Bilirubin Direct Bilirubin AST ALT Alkaline Phosphatase Total Creatine Kinase Total Protein Albumin Urine Color Urine Appearance Urine pH Ur Specific [place] Urine Protein Urine Glucose (UA) Urine Ketones Urine Blood Urine Nitrite Ur Leukocyte Esterase Urine RBC Urine WBC Ur Squamous Epith Cells Amorphous Sediment Urine Bacteria Urine Mucus Urine Test Urine Opiates Screen Ur Barbiturates Screen Ur Phencyclidine Scrn Ur Amphetamines Screen U Benzodiazepines Scrn Urine Cocaine Screen U Marijuana (THC) Screen Ethyl Alcohol COVID-19 (DUTCH) COVID-19 Clin Com Imaging Radiologist's Impressions: Impressions Head CT 08/04/20 12:18 IMPRESSION: No acute intracranial pathology. Nonspecific mild soft tissue stranding and inflammatory changes in the right lateral facial region and right premaxillary soft tissues which may be posttraumatic; correlate with physical exam findings. Chest X-Ray 08/04/20 12:19 IMPRESSION: Limited rotated chest x-ray. No evidence for acute disease in the chest. Assessment and Plan (1) Seizure: Status: Acute 44F presented with seizure seizure due to non compliance lactic acid due to seizure not sepsis topamax, lamictal, valium, neuro eval history of PE restart coumadin mood disorder zyprexa vte prophylaxis with lovenox until inr therapeutic
--- NOTE | 2020-08-04 16:53 | PC.NURSE ---
Nurse to nurse given to floor- patient belongings done and will be transported by tech.
[2020-08-04 17:03] LABS: Reflex Lactate? Lactic Acid Added
[2020-08-04] MEDS: hydrOXYzine HCL 50 MG TABLET PO (17:35)
[2020-08-04] MEDS: Butalb/Acetamin/Caff 50/325/40 TABLET 1 TAB PO (17:35)
[2020-08-04] MEDS: Sucralfate Oral Suspension 1 GM/10 ML ORAL.SUSP PO ×2 (17:35→20:11)
[2020-08-04] MEDS: Enoxaparin Sodium 40 MG/0.4 ML SYRINGE SUBCUT (17:36)
[2020-08-04 17:45] VITALS: BP 104/71; PULSE 98; RESP 20; TEMP 36.3; O2SAT 100
[2020-08-04 19:04] VITALS: BP 121/82; PULSE 88; RESP 17; TEMP 36.4; O2SAT 98
[2020-08-04 19:33] LABS: ~Lactic Acid-LAB USE ONLY 1.5 mmol/L (0.5-2.0)
[2020-08-04] MEDS: Pregabalin 200 MG CAPSULE PO (20:11)
[2020-08-04] MEDS: OLANZapine 7.5 MG TABLET 15 MG PO (20:12)
[2020-08-04] MEDS: Omeprazole 40 MG CAPSULE.DR PO (20:12)
[2020-08-04] MEDS: Zonisamide 100 MG CAPSULE PO (20:12)
[2020-08-04] MEDS: Topiramate 100 MG TABLET 400 MG PO (20:12)
[2020-08-04] MEDS: Prazosin HCL 1 MG CAPSULE 2 MG PO (20:12)
[2020-08-04] MEDS: Dicyclomine HCl 10 MG CAPSULE PO (20:12)
[2020-08-04] MEDS: lamoTRIgine 100 MG TABLET PO (20:12)
[2020-08-04] MEDS: 0.9 % Sodium Chloride Flush 3 ML SYRINGE IVFLUSH (20:13)
[2020-08-04] MEDS: diazePAM 10 MG TABLET PO (20:37)
[2020-08-04] MEDS: Fluticasone Propionate Nasal 16 GM SPRAY 2 SPRAY NOSTRIL-B (21:11)
[2020-08-04 23:23] VITALS: BP 106/73; PULSE 96; RESP 18; TEMP 36; O2SAT 99
[2020-08-05] VITALS (7 sets, daily range): BP systolic 89–121; BP diastolic 59–72; PULSE 70–106; RESP 16–19; TEMP 36.1–37; O2SAT 96–100
[2020-08-05 05:55] LABS: Mean Corpuscular HGB Conc 31.7 g/dl (31.0-35.0); Red Blood Count 5.64 X10*6/uL (4.20-5.50); Red Cell Distribution Width 18.5 % (11.0-16.0)
[2020-08-05 05:57] LABS: Hematocrit 42.6 % (37-47); Hemoglobin 13.5 g/dl (12.0-16.0); Mean Corpuscular Hemoglobin 23.9 pg (27.0-33.0); Mean Corpuscular Volume 75.5 fL (80-98); PLT CLUMP 1
[2020-08-05 06:02] LABS: PLT ABN DIST 1; White Blood Count 8.5 X10*3/uL (4.8-10.8)
[2020-08-05 06:23] LABS: Anion Gap 12 (12-20); Blood Urea Nitrogen 4 mg/dL (9-16); Calcium 8.6 mg/dL (8.4-10.2); Carbon Dioxide 20 mmol/L (22-29); Chloride 113 mmol/L (96-108); Creatinine Clr Calc Pharmacy 126.2; Estimated Glomerular Filt Rate > 60; Glucose Random 80 mg/dL (60-115); Sodium 142 mmol/L (135-145)
[2020-08-05 08:18] LABS: INTERNATIONAL NORM RATIO 1.1 (0.9-1.1); Prothrombin Time 12.6 SEC (10.8-13.0)
--- NOTE | 2020-08-05 08:54 | PM.NEUROCN ---
History of Present Illness Data of Consult Service Date: 08/05/20 Primary Care Provider: Klever Gabriel MD 44 years old woman with complicated neuropsychiatric history. She had underlying history of depression with psychotic feature and probably also posttraumatic stress disorder from her childhood experiences. She also had seizure disorder or at least seizure-like episodes, some of which were probably nonepileptic, and chronic noncompliance with treatment and medications. I am not sure if she was following any neurologist on a regular basis but she had seen Dr. Ko in the past. She also had seen physicians in [facility] and [facility]. She was brought to hospital after she was found on the floor apparently after a seizure or presumed to be a after a seizure. She was unable to provide any meaningful history except stating that she suffered from seizure disorder and she had not been taking her medicines. Review of Systems Review of Systems: Somewhat limited but no recent trauma or cold or flu-like illness. PMFSH Past Medical History Medical History Anemia Cerebral aneurysm Cervical cancer Chronic migraine COPD (chronic obstructive pulmonary disease) Deep vein thrombosis Elevated INR [place] Heart failure Hemorrhagic shock Herniated disc Meningioma Neuropathy Pacemaker Pulmonary embolism Seizure disorder Stomach cancer Urinary retention Surgical History Surgical History Gastric bypass status for obesity Hx of cholecystectomy Social History Social History Household Members: Significant Other Housing: Apartment Do you presently have visiting nurse or other home services: Yes ([employer]IL [employer] DES[employer]) Unable to assess alcohol history related to: Unable to respond Alcohol intake: unknown Patient Tobacco Use Status: Never used Tobacco Cigarettes Per Day: 10 Second Hand Smoke Exposure: Yes Use of substances other than those prescribed or required for medical reasons: Unknown Substance Use Type: Marijuana Advance Directives: No Advance Directives Information Provided: No Patient : No service: No Current occupational status: disabled Meds Allergies Allergy/AdvReac Type Severity Reaction Status Date / Time bee pollen [Bee Stings] Allergy Severe ANAPHYLAXIS Verified 06/17/20 04:16 honey Allergy Severe throat Verified 06/17/20 04:16 closes mushroom Allergy Severe ANAPHYLAXIS Verified 06/17/20 04:16 aspirin Allergy Unknown BLEED Verified 06/17/20 04:16 Bleach (Sodium Hypochlorite) Allergy Unknown RASH Verified 06/17/20 04:16 [BLEACH (SODIUM HYPOCHLORITE)] lactose [Lactose] Allergy Unknown STOMACH Verified 06/17/20 04:16 ACHE morphine [Morphine] Allergy Unknown ITCHING Verified 06/17/20 04:16 ibuprofen AdvReac Unknown Stomach Verified 06/17/20 04:16 Upset NSAIDS (Non-Steroidal AdvReac Unknown BLEED,COUMA Verified 06/17/20 04:16 Anti-Inflamma DIN [Nsaids] Active Medications: Current Medications Generic Name Dose Route Start Last Admin Trade Name Freq PRN Reason Stop Dose Admin Acetaminophen/Butalbital/Caffeine 1 tab 08/04/20 16:25 08/04/20 17:35 Butalb/Acetamin/Caff 50/325/40 Tablet PO 1 tab TID PRN Administration Headache Albuterol/Ipratropium 3 ml 08/04/20 16:25 Albuterol/Iprat 2.5/0.5mg 3 Ml Ampul.Neb INHALE QID PRN wheezing Diazepam 5 mg 08/05/20 08:00 Diazepam 5 Mg Tablet PO BID@08,14 CARROL Diazepam 10 mg 08/04/20 21:00 08/04/20 20:37 Diazepam 10 Mg Tablet PO 10 mg BEDTIME CARROL Administration Dicyclomine HCl 10 mg 08/04/20 21:00 08/04/20 20:12 Dicyclomine Hcl 10 Mg Capsule PO 10 mg QID CARROL Administration Enoxaparin Sodium 40 mg 08/04/20 17:00 08/04/20 17:36 Enoxaparin Sodium 40 Mg/0.4 Ml Syringe SUBCUT 40 mg Q24H CARROL Administration Fluticasone Propionate 2 spray 08/04/20 21:00 08/04/20 21:11 Fluticasone Propionate Nasal 16 Gm [place] NOSTRIL-B 2 spray BID CARROL Administration Hydroxyzine HCl 50 mg 08/04/20 16:25 08/04/20 17:35 Hydroxyzine Hcl 50 Mg Tablet PO 50 mg TID PRN Administration anxiety Lamotrigine 25 mg 08/05/20 09:00 Lamotrigine 25 Mg Tablet PO DAILY CARROL Lamotrigine 100 mg 08/04/20 21:00 08/04/20 20:12 Lamotrigine 100 Mg Tablet PO 100 mg BID CARROL Administration Loratadine 10 mg 08/05/20 09:00 Loratadine 10 Mg Tablet PO DAILY CARROL Olanzapine 15 mg 08/04/20 21:00 08/04/20 20:12 Olanzapine 7.5 Mg Tablet PO 15 mg BEDTIME CARROL Administration Omeprazole 40 mg 08/04/20 21:00 08/04/20 20:12 Omeprazole 40 Mg Capsule.Dr PO 40 mg BID CARROL Administration Pharmacy Consult 1 each 08/04/20 12:18 Consult Rx Perform Med Rec MISCELLANE ONCE PRN Consult order Prazosin HCl 2 mg 08/04/20 21:00 08/04/20 20:12 Prazosin Hcl 1 Mg Capsule PO 2 mg BEDTIME CARROL Administration Protocol Pregabalin 200 mg 08/04/20 21:00 08/04/20 20:11 Pregabalin 200 Mg Capsule PO 200 mg TID CARROL Administration Sodium Chloride 3 ml 08/05/20 00:00 08/04/20 20:13 0.9 % Sodium Chloride Flush 3 Ml Syringe IVFLUSH 3 ml QSHIFT [facility] Administration Sucralfate 1 gm 08/04/20 16:30 08/04/20 20:11 Sucralfate Oral Suspension 1 Gm/10 Ml Oral.Susp PO 1 gm QIDACHS [facility] Administration Tizanidine HCl 4 mg 08/04/20 16:25 Tizanidine Hcl 4 Mg Tablet PO TID PRN muscle spasm Topiramate 200 mg 08/05/20 09:00 Topiramate 100 Mg Tablet PO DAILY [facility] Topiramate 400 mg 08/04/20 21:00 08/04/20 20:12 Topiramate 100 Mg Tablet PO 400 mg BEDTIME CARROL Administration Warfarin Sodium 15 mg 08/05/20 16:00 Warfarin Sodium 7.5 Mg Tablet PO MOWEFR@16 [facility] Warfarin Sodium 10 mg 08/06/20 16:00 Warfarin Sodium 10 Mg Tablet PO SUTUTHSA@16 [facility] Zonisamide 100 mg 08/04/20 21:00 08/04/20 20:12 Zonisamide 100 Mg Capsule PO 100 mg BID CARROL Administration Home Medications Medication Instructions Recorded Confirmed Last Taken Type Combivent Respimat 1 puff PO QID 03/15/20 08/04/20 03/15/20 History yoerhnkbxj-qfkvxernfauto-lbtw 1 tab PO TID PRN 0108/04/20 03/15/20 History diazepam 1 tab PO BEDTIME 03/15/20 08/04/20 03/14/20 History dicyclomine 1 tab PO QID 03/15/20 08/04/20 03/15/20 History hydroxyzine pamoate 1 cap PO TID PRN 03/15/20 08/04/20 03/15/20 History lamotrigine 1 tab PO BID 03/15/20 08/04/20 03/15/20 History lamotrigine 1 tab PO DAILY 03/15/20 08/04/20 03/15/20 History loratadine 1 tab PO DAILY 03/15/20 08/04/20 03/15/20 History olanzapine 1 tab PO BEDTIME 03/15/20 08/04/20 03/14/20 History ondansetron HCl 1 tab PO TID PRN 03/15/20 08/04/20 03/15/20 History prazosin 1 cap PO BEDTIME 03/15/20 08/04/20 03/14/20 History pregabalin 1 cap PO TID 03/15/20 08/04/20 03/15/20 History sucralfate 10 ml PO QIDACHS 03/15/20 08/04/20 03/15/20 08:00 History topiramate 200 mg PO DAILY 03/15/20 08/04/20 03/15/20 History topiramate 400 mg PO BEDTIME 03/15/20 08/04/20 03/14/20 History zonisamide 1 cap PO BID 03/15/20 08/04/20 03/15/20 History diazepam 1 tab PO BID@08,14 06/17/20 08/04/20 Unknown History fluticasone propionate 2 spray INTRANASAL BID 06/17/20 08/04/20 Unknown History omeprazole 1 cap PO BID 06/17/20 08/04/20 Unknown History tizanidine 1 tab PO TID PRN 06/17/20 08/04/20 Unknown History warfarin 10 mg PO SUTUTHSA@16 06/17/20 08/04/20 Unknown History warfarin 15 mg PO MOWEFR@16 06/17/20 08/04/20 Unknown History ipratropium-albuterol 3 ml INHALATION QID PRN 08/04/20 08/04/20 Unknown History Physical Exam Vital Signs: Vital Signs: Last Vital Signs Temp 97.5 F 08/05/20 07:35 Pulse 78 08/05/20 07:35 Resp 17 08/05/20 07:35 BP 113/68 08/05/20 07:35 Pulse Ox 100 08/05/20 07:35 Body Mass Index 35.4 She was drowsy but was erosive bowl and able to answer questions and respond appropriately. She knew where she was. She was following one-step commands. Face was symmetrical. There was no gaze deviation or I would nystagmus. There was no focal weakness. Deep tendon reflexes were absent with flexor plantars. Results Labs CBC & Chem 7: 08/05/20 05:34 08/05/20 05:34 Labs: Short CBC 08/04/20 08/05/20 Range/Units 12:44 05:34 WBC 14.6 H 8.5 (4.8-10.8) X10*3/uL Hgb 15.0 D 13.5 (12.0-16.0) g/dl Hct 47.5 H D 42.6 (37-47) % Plt Count TNP TNP BMP 08/04/20 08/05/20 12:47 05:34 Sodium 140 142 Potassium 3.4 3.0 L Chloride 110 H 113 H Carbon Dioxide 16 L 20 L BUN 5 L 4 L Creatinine 0.80 0.67 Calcium 9.4 D 8.6 D Cardiac Enzymes 08/04/20 Range/Units 12:44 Total Creatine Kinase 33 (26-140) U/L Liver Function 08/04/20 Range/Units 12:44 Total Bilirubin 0.5 (0.0-1.0) mg/dL Direct Bilirubin 0.2 (0.0-0.5) mg/dL AST 18 (5-31) U/L ALT 13 (0-31) U/L Alkaline Phosphatase 102 (39-117) U/L Albumin 4.0 D (3.5-5.0) g/dL Urine 08/04/20 Range/Units 13:09 Urine Color YELLOW Urine Appearance HAZY Urine pH 6.0 (5.0-8.0) Ur Specific [place] >= 1.030 H (1.005-1.025) Urine Protein 2+ H (NEG-TRACE) MG/DL Urine Glucose (UA) NEG (NEG) MG/DL Her noncontrast head CT did not reveal any significant abnormality. Assessment and Plan (1) Encephalopathy: Status: Acute 44 years old woman with complicated neuropsychiatric history including posttraumatic stress disorder, psychotic depression, seizure disorder that was not well defined and probably included nonepileptic spells, and chronic noncompliance with medications or treatment. She was brought back to hospital after she was found on the floor. At this time she was mildly encephalopathic, which could be iatrogenic. I noted that there was no MRI of brain in her record. 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 My recommendation is to restart her regular medicines, obtain an EEG and an MRI of brain with and without contrast to complete her formal workup so that we have better understanding. I am reasonably certain that this would not be her last hospitalization and knowing her overall situation would help. Finally she has been taking rather large doses of psychotropic medicines including Topamax lamotrigine and zonisamide. This regimen was manage likely by her psychiatrist. I would suggest obtaining their input in asking for somewhat reduction of her medicines as high doses of polypharmacy might be 1 of the reasons that she was noncompliant to medicines. Procedures Date of Service Date of Service: 08/05/20
[2020-08-05] MEDS: Potassium Chloride ER 20 MEQ TAB.ER.PRT PO (09:10)
[2020-08-05] MEDS: Butalb/Acetamin/Caff 50/325/40 TABLET 1 TAB PO ×2 (09:10→15:41)
[2020-08-05] MEDS: TiZANidine HCL 4 MG TABLET PO ×2 (09:12→15:41)
--- NOTE | 2020-08-05 09:34 | MHC.CM.PN ---
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 SHE USES A CANE AND WALKER AND HAS NO VISITING NURSE AGENCY IN THE HOME. SHE ASKS THAT HER BROTHER (ROBERT) [phone] BE NOTIFIED OF HER PLANS FOR DISCHARGE. HCP CREATED AND SIGNED. COPY NOW IN CHART. SHE NAMES HER MOTHER PITER ([phone]) AND HER FIANCE PHIL ([phone]) AGENTS. PATIENT MAY NEED AMBULANCE RIDE HOME. WHALEY 08/05 IN CHART.
[2020-08-05] MEDS: Dicyclomine HCl 10 MG CAPSULE PO ×4 (09:43→20:44)
[2020-08-05] MEDS: lamoTRIgine 100 MG TABLET PO ×2 (09:43→20:43)
[2020-08-05] MEDS: Sucralfate Oral Suspension 1 GM/10 ML ORAL.SUSP PO ×4 (09:43→20:44)
[2020-08-05] MEDS: diazePAM 5 MG TABLET PO ×2 (09:44→14:14)
[2020-08-05] MEDS: Loratadine 10 MG TABLET PO (09:44)
[2020-08-05] MEDS: Zonisamide 100 MG CAPSULE PO ×2 (09:44→20:44)
[2020-08-05] MEDS: lamoTRIgine 25 MG TABLET PO (09:44)
[2020-08-05] MEDS: Omeprazole 40 MG CAPSULE.DR PO ×2 (09:44→20:42)
[2020-08-05] MEDS: Topiramate 100 MG TABLET 200 MG PO (09:44)
[2020-08-05] MEDS: Pregabalin 200 MG CAPSULE PO ×3 (09:44→20:42)
[2020-08-05] MEDS: Fluticasone Propionate Nasal 16 GM SPRAY 2 SPRAY NOSTRIL-B ×2 (09:48→20:51)
[2020-08-05] MEDS: 0.9 % Sodium Chloride Flush 3 ML SYRINGE IVFLUSH ×3 (09:50→21:53)
[2020-08-05] MEDS: hydrOXYzine HCL 50 MG TABLET PO (12:21)
--- NOTE | 2020-08-05 12:58 | MHC.CM.PN ---
PER PHYSICIAN ROUNDS, PATIENT TO BE SEEN BY CRISIS AND HAVE AN MRI. PLAN IS FOR DC TOMORROW. BROTHER ROBERT ([phone]) AWARE OF PLAN.
--- NOTE | 2020-08-05 13:58 | P.PNIM_ITS ---
Subjective Subjective Date of Service: 08/05/20 Interval History: Patient feels down and mildly depressed, denies any acute suicidal ideation but overall she feels down and life is not worth living denies any episode seizures since last night Reported that she was not taking any medication at home No other overnight.s events No fever, chills but reports overall pain and generalized weakness No chest pain, palpitation No shortness of breath or coughing No abdominal pain, nausea or vomiting No urinary symptoms No any rash or wounds Physical Exam Vital Signs: Vital Signs: Last Vital Signs Temp 97.6 F 08/05/20 11:49 Pulse 106 H 08/05/20 11:49 Resp 16 08/05/20 11:49 BP 95/59 L 08/05/20 11:49 Pulse Ox 98 08/05/20 11:49 Body Mass Index 35.4 Const: Other: Constitutional : Alert, oriented, not in distress Neck : Normal inspection, Supple Cardiovascular : RRR, S1 S2, no lower extremity edema Respiratory : Fair bilateral air entry, no crackles, wheezes or rhonchi Gastrointestinal: soft, lax, Normal bowel sounds, Non tender Skin : Warm/Dry, No rash Neurological : Alert & oriented x3, No focal deficit Objective Data Current Medications Generic Name Dose Route Start Last Admin Trade Name Freq PRN Reason Stop Dose Admin Acetaminophen/Butalbital/Caffeine 1 tab 08/04/20 16:25 08/05/20 09:10 Butalb/Acetamin/Caff 50/325/40 Tablet PO 1 tab TID PRN Administration Headache Albuterol/Ipratropium 3 ml 08/04/20 16:25 Albuterol/Iprat 2.5/0.5mg 3 Ml Ampul.Neb INHALE QID PRN wheezing Diazepam 5 mg 08/05/20 08:00 08/05/20 09:44 Diazepam 5 Mg Tablet PO 5 mg BID@08,14 CARROL Administration Diazepam 10 mg 08/04/20 21:00 08/04/20 20:37 Diazepam 10 Mg Tablet PO 10 mg BEDTIME CARROL Administration Dicyclomine HCl 10 mg 08/04/20 21:00 08/05/20 12:12 Dicyclomine Hcl 10 Mg Capsule PO 10 mg QID CARROL Administration Enoxaparin Sodium 40 mg 08/04/20 17:00 08/04/20 17:36 Enoxaparin Sodium 40 Mg/0.4 Ml Syringe SUBCUT 40 mg Q24H CARROL Administration Fluticasone Propionate 2 spray 08/04/20 21:00 08/05/20 09:48 Fluticasone Propionate Nasal 16 Gm [place] NOSTRIL-B 2 spray BID CARROL Administration Hydroxyzine HCl 50 mg 08/04/20 16:25 08/05/20 12:21 Hydroxyzine Hcl 50 Mg Tablet PO 50 mg TID PRN Administration anxiety Lamotrigine 25 mg 08/05/20 09:00 08/05/20 09:44 Lamotrigine 25 Mg Tablet PO 25 mg DAILY CARROL Administration Lamotrigine 100 mg 08/04/20 21:00 08/05/20 09:43 Lamotrigine 100 Mg Tablet PO 100 mg BID CARROL Administration Loratadine 10 mg 08/05/20 09:00 08/05/20 09:44 Loratadine 10 Mg Tablet PO 10 mg DAILY CARROL Administration Olanzapine 15 mg 08/04/20 21:00 08/04/20 20:12 Olanzapine 7.5 Mg Tablet PO 15 mg BEDTIME CARROL Administration Omeprazole 40 mg 08/04/20 21:00 08/05/20 09:44 Omeprazole 40 Mg Capsule.Dr PO 40 mg BID CARROL Administration Pharmacy Consult 1 each 08/04/20 12:18 Consult Rx Perform Med Rec MISCELLANE ONCE PRN Consult order Prazosin HCl 2 mg 08/04/20 21:00 08/04/20 20:12 Prazosin Hcl 1 Mg Capsule PO 2 mg BEDTIME CARROL Administration Protocol Pregabalin 200 mg 08/04/20 21:00 08/05/20 09:44 Pregabalin 200 Mg Capsule PO 200 mg TID CARROL Administration Sodium Chloride 3 ml 08/05/20 00:00 08/05/20 09:50 0.9 % Sodium Chloride Flush 3 Ml Syringe IVFLUSH 3 ml QSHIFT CARROL Administration Sucralfate 1 gm 08/04/20 16:30 08/05/20 12:13 Sucralfate Oral Suspension 1 Gm/10 Ml Oral.Susp PO 1 gm QIDACHS CARROL Administration Tizanidine HCl 4 mg 08/04/20 16:25 08/05/20 09:12 Tizanidine Hcl 4 Mg Tablet PO 4 mg TID PRN Administration muscle spasm Topiramate 200 mg 08/05/20 09:00 08/05/20 09:44 Topiramate 100 Mg Tablet PO 200 mg DAILY CARROL Administration Topiramate 400 mg 08/04/20 21:00 08/04/20 20:12 Topiramate 100 Mg Tablet PO 400 mg BEDTIME CARROL Administration Warfarin Sodium 15 mg 08/05/20 16:00 Warfarin Sodium 7.5 Mg Tablet PO [id number]@16 [facility] Warfarin Sodium 10 mg 08/06/20 16:00 Warfarin Sodium 10 Mg Tablet PO [id number]@16 [facility] Zonisamide 100 mg 08/04/20 21:00 08/05/20 09:44 Zonisamide 100 Mg Capsule PO 100 mg BID CARROL Administration Labs CBC & Chem 7: 08/05/20 05:34 08/05/20 05:34 Assessment and Plan (1) Seizure: Status: Acute Assessment and Plan: 44F presented with seizure seizure due to non compliance lactic acid due to seizure not sepsis Continue topamax, lamictal, valium Neurology input appreciated, do EEG and MRI To discuss with psychiatrist about multi pharmacy Major Depression Continue medication Concerns of about subsided ideation with history of previous attempts To get crisis team evaluation history of PE restart coumadin mood disorder zyprexa vte prophylaxis lovenox until inr therapeutic
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
[2020-08-05] MEDS: Warfarin Sodium 7.5 MG TABLET 15 MG PO (15:45)
[2020-08-05] MEDS: Enoxaparin Sodium 40 MG/0.4 ML SYRINGE SUBCUT (16:56)
--- NOTE | 2020-08-05 20:40 | MHC.CARE ---
CARE team consult requested to provide support to pt who was expressing that she's been feeling overwhelmed and upset by her numerous, complex medical conditions. Pt reported that she finds herself unable to watch TV because she is triggered by the images and news of people hurting others for them living their lives, and that she feels that medical providers all think she is med seeking when she is asking for stronger medication to manage her pain and discomfort. She denied experiencing any thoughts of harming herself or others and denied any ill wishing upon others. Pt has outpatient providers through [facility], however she hasn't heard from her therapist is 6 weeks since she updated the clinic re: pt having a new phone/phone number. This casualty underwriter will contact [facility] outpatient clinic on [facility] in [place] re: pt and having seen her for behavioral health consultation.
[2020-08-05] MEDS: Topiramate 100 MG TABLET 400 MG PO (20:42)
[2020-08-05] MEDS: diazePAM 10 MG TABLET PO (20:42)
[2020-08-05] MEDS: OLANZapine 7.5 MG TABLET 15 MG PO (20:43)
[2020-08-05] MEDS: Prazosin HCL 1 MG CAPSULE 2 MG PO (20:46)
[2020-08-05] MEDS: oxyCODONE HCl Immed Release 5 MG TABLET PO (21:05)
[2020-08-06 03:29] VITALS: BP 98/67; PULSE 93; RESP 16; TEMP 37.1; O2SAT 96
[2020-08-06] MEDS: hydrOXYzine HCL 50 MG TABLET PO (03:57)
[2020-08-06 06:53] LABS: Anion Gap 12 (12-20); Blood Urea Nitrogen 13 mg/dL (9-16); Carbon Dioxide 18 mmol/L (22-29); Chloride 113 mmol/L (96-108); Creatinine Clr Calc Pharmacy 100.6; Estimated Glomerular Filt Rate > 60; Glucose Random 85 mg/dL (60-115); Sodium 140 mmol/L (135-145)
[2020-08-06 07:33] VITALS: BP 94/63; PULSE 88; RESP 18; TEMP 36.8; O2SAT 97
[2020-08-06] MEDS: Potassium Chloride Packet 20 MEQ PACKET 40 MEQ PO (07:54)
[2020-08-06] MEDS: Pregabalin 200 MG CAPSULE PO (07:54)
[2020-08-06] MEDS: 0.9 % Sodium Chloride Flush 3 ML SYRINGE IVFLUSH (07:54)
[2020-08-06] MEDS: Sucralfate Oral Suspension 1 GM/10 ML ORAL.SUSP PO ×2 (07:54→12:46)
[2020-08-06] MEDS: Zonisamide 100 MG CAPSULE PO (07:56)
[2020-08-06] MEDS: Omeprazole 40 MG CAPSULE.DR PO (07:56)
[2020-08-06] MEDS: Loratadine 10 MG TABLET PO (07:56)
[2020-08-06] MEDS: Topiramate 100 MG TABLET 200 MG PO (07:56)
[2020-08-06] MEDS: lamoTRIgine 100 MG TABLET PO (07:56)
[2020-08-06] MEDS: Dicyclomine HCl 10 MG CAPSULE PO ×2 (07:57→12:46)
[2020-08-06] MEDS: lamoTRIgine 25 MG TABLET PO (07:57)
[2020-08-06] MEDS: diazePAM 5 MG TABLET PO (07:59)
[2020-08-06 08:51] LABS: INTERNATIONAL NORM RATIO 1.2 (0.9-1.1)
[2020-08-06 11:23] VITALS: BP 110/75; PULSE 96; RESP 18; TEMP 37.1; O2SAT 99
--- NOTE | 2020-08-06 11:40 | MHC.CM.PN ---
PT WILL DC HOME TODAY WITH NO SERVICES
--- NOTE | 2020-08-06 12:15 | MHC.CM.PN ---
NURSE PHYSICIAN RELATIONS SPECIALIST NOTE ELECTRONIC MEDICAL RECORD REVIEWED ALONG WITH DISCHARGE INSTRUCTIONS, MET WITHPATIENT SHE IS AWARE THATT SHE QILL BE DISCHAGRED HOME TODAY TO HER APARTEMENT , SHE HAS A LIVE IN CORE FINISHER SHE WILL BE TRANSPORTED VIA [facility] (HAS BEEN SEEN BY PSYCH AND CASE DISCUSSED WITH HOSPITLIST CLEARED FOR DISCHARGE HOME DISCHARGE -HOME NO SERVICES HAS LIVE IN CORE FINISHER TRANSPORTATION [facility] AT [address] [employer] [employer] AND STAFF NURSE re aware as well as patient to the time of transport
[2020-08-06] MEDS: Butalb/Acetamin/Caff 50/325/40 TABLET 1 TAB PO (12:48)
--- NOTE | 2020-08-06 12:59 | P.DS_ITS ---
DS: Providers Provider Date of Service: 08/06/20 Date of admission: 08/04/20 16:13 Primary care physician: Klever Gabriel MD Consults: 08/04/20 16:25 Consult to Neurology Routine Consulting Provider: [facility] Reason for consultation: seizure 08/05/20 12:21 Consult to Crisis Stat Reason for consultation: Pending discharge, Depression; not worthy life, hx suicide attempts 08/05/20 13:58 Consult to Care Team Routine Comment: may need resourses for conseling Reason for consultation: anxiety depression, ptsd, DS: Diagnosis Discharge Diagnosis (1) Bipolar 1 disorder: Status: Acute (2) Seizure: Status: Acute (3) Encephalopathy: Status: Acute (4) Lactic acidosis: Status: Acute DS: Medications Discharge Medications Home Medications: Home Medications Medication Instructions Recorded Confirmed Combivent Respimat 1 puff PO QID 03/15/20 08/04/20 pxuzdjlmow-gooyuvfkftuco-hfzw 1 tab PO TID PRN 03/15/20 08/04/20 diazepam 1 tab PO BEDTIME 03/15/20 08/04/20 dicyclomine 1 tab PO QID 03/15/20 08/04/20 hydroxyzine pamoate 1 cap PO TID PRN 03/15/20 08/04/20 lamotrigine 1 tab PO BID 03/15/20 08/04/20 lamotrigine 1 tab PO DAILY 03/15/20 08/04/20 loratadine 1 tab PO DAILY 03/15/20 08/04/20 olanzapine 1 tab PO BEDTIME 03/15/20 08/04/20 ondansetron HCl 1 tab PO TID PRN 03/15/20 08/04/20 prazosin 1 cap PO BEDTIME 03/15/20 08/04/20 pregabalin 1 cap PO TID 03/15/20 08/04/20 sucralfate 10 ml PO QIDACHS 03/15/20 08/04/20 topiramate 200 mg PO DAILY 03/15/20 08/04/20 topiramate 400 mg PO BEDTIME 03/15/20 08/04/20 zonisamide 1 cap PO BID 03/15/20 08/04/20 diazepam 1 tab PO BID@08,14 06/17/20 08/04/20 fluticasone propionate 2 spray INTRANASAL BID 06/17/20 08/04/20 omeprazole 1 cap PO BID 06/17/20 08/04/20 tizanidine 1 tab PO TID PRN 06/17/20 08/04/20 warfarin 10 mg PO SUTUTHSA@16 06/17/20 08/04/20 warfarin 15 mg PO MOWEFR@16 06/17/20 08/04/20 ipratropium-albuterol 3 ml INHALATION QID PRN 08/04/20 08/04/20 Previous Rx's Medication Instructions Recorded oxycodone 5 mg PO Q8H PRN #10 tab 08/06/20 DS: Summary Hospital Course Hospital Course: Admission note HPI 44F brought in after boyfriend noticed that she had convulsions and fell out of bed and hit her head. Patient has a history of seizures both epileptic and nonepileptic. She is supposed to be on Lamictal and trazodone as well as diazepam but unclear if she has been compliant. Based on her INR of 1.1 it seems like she has been noncompliant with her Coumadin and therefore likely noncompliant with her other medications. In ED noted to have lactate of 6.8 favoring epileptic seizure. She was given Ativan and 2 L IV fluid. Hospital course Admitted to the hospital after reported episode of seizure encephalopathy. Likely a result of noncompliance per significant other. The patient was started on her home medications with good response as no more seizures were noted during the hospital stay. Neurology evaluated the patient as CT scan of the head was negative for any acute findings and recommended to continue home medications and to do EEG and MRI which the patient refused stating that she did them many times before and she does not feel comfortable going inside the MRI machine. She was evaluated by the psychiatry team regarding concerns major depression. P sukhwinder recommended to continue home medications and to follow-up with her primary psychiatrist to consider reviewing her medication list and simplify it which might help in better compliance from the patient. She was noted to have lactic acidosis at time of presentation which was believed to be a result of the seizure itself. Resolved with IV fluid. Time Spent with Patient Time attestation: Total time spent providing and/or coordinating discharge services: Discharge coordination time: Greater than 30 minutes Quality: Stroke Does the patient have a stroke diagnosis?: No Physical Exam Vital Signs: Vital Signs: Last Vital Signs Temp 98.8 F 08/06/20 11:23 Pulse 96 08/06/20 11:23 Resp 18 08/06/20 11:23 BP 110/75 08/06/20 11:23 Pulse Ox 99 08/06/20 11:23 Body Mass Index 35.4 Const: Other: Constitutional : Alert, oriented, not in distress Neck : Normal inspection, Supple Cardiovascular : RRR, S1 S2, no lower extremity edema Respiratory : Fair bilateral air entry, no crackles, wheezes or rhonchi Gastrointestinal: soft, lax, Normal bowel sounds, Non tender Skin : Warm/Dry, No rash Neurological : Alert & oriented x3, No focal deficit DS: Data Data Completed and Pending Completed studies during hospitalization [Text1]: Procedures Transfusion of Nonautologous Frozen Plasma into Peripheral Vein, Percutaneous Approach (03/15/20) Transfusion of Nonautologous Red Blood Cells into Peripheral Vein, Percutaneous Approach (03/15/20) Labs on day of discharge: Laboratory Results - last 24 hr 08/06/20 08/06/20 05:58 08:26 PT 14.0 H INR 1.2 H Sodium 140 Potassium 3.0 L Chloride 113 H Carbon Dioxide 18 L Anion Gap 12 BUN 13 D Creatinine 0.84 Estim Creat Clear Calc 100.6 Estimated GFR > 60 Random Glucose 85 Calcium 8.0 L D Preliminary micro results at discharge 08/04/20 12:44 Blood Culture - Preliminary Blood - Venous No growth after 24 hours. 08/04/20 12:44 Blood Culture - Preliminary Blood - Venous No growth after 24 hours. Discharge Plan Discharge Patient Disposition: Home, Self-Care Discharge Diagnosis: Seizure Encephalopathy Referrals: Klever Gabriel MD [Primary Care Provider] - 1 Week Discharge Medications: New oxycodone 5 mg tablet 5 mg PO Q8H PRN (Reason: pain) Qty: 10 RF: 0 Continued sucralfate 100 mg/mL suspension 10 ml PO QIDACHS RF: 0 ondansetron HCl 8 mg tablet 1 tab PO TID PRN (Reason: nausea/vomiting) RF: 0 hydroxyzine pamoate 50 mg capsule 1 cap PO TID PRN (Reason: anxiety) RF: 0 eonffzgqjz-ztvhxzoqnbbcs-rhvk 50-325-40 mg tablet 1 tab PO TID PRN (Reason: Headache) RF: 0 lamotrigine 25 mg tablet 1 tab PO DAILY RF: 0 zonisamide 100 mg capsule 1 cap PO BID RF: 0 dicyclomine 20 mg tablet 1 tab PO QID RF: 0 olanzapine 15 mg tablet 1 tab PO BEDTIME RF: 0 diazepam 10 mg tablet 1 tab PO BEDTIME RF: 0 topiramate 100 mg Tablet 200 mg PO DAILY RF: 0 topiramate 100 mg Tablet 400 mg PO BEDTIME RF: 0 lamotrigine 100 mg tablet 1 tab PO BID RF: 0 loratadine 10 mg tablet 1 tab PO DAILY RF: 0 prazosin 2 mg capsule 1 cap PO BEDTIME RF: 0 pregabalin 200 mg capsule 1 cap PO TID RF: 0 Combivent Respimat 20-100 mcg/actuation mist 1 puff PO QID RF: 0 tizanidine 4 mg tablet 1 tab PO TID PRN (Reason: muscle spasm) RF: 0 omeprazole 40 mg capsule,delayed release(DR/EC) 1 cap PO BID RF: 0 warfarin 5 mg Tablet 15 mg PO MOWEFR@16 RF: 0 fluticasone propionate 50 mcg/actuation spray,suspension 2 spray intranasal BID RF: 0 diazepam 5 mg tablet 1 tab PO BID@08,14 RF: 0 warfarin 10 mg tablet 10 mg PO SUTUTHSA@16 RF: 0 ipratropium-albuterol 0.5 mg-3 mg(2.5 mg base)/3 mL solution for nebulization 3 ml inhalation QID PRN (Reason: wheezing) RF: 0 Discharge Orders: Discharge Order (Routine); Ordered 08/06/20 Ordered By: Maru Gauthier Diet: advance to usual diet Activity on Discharge: As tolerated Stand Alone Forms: Patient Portal Discharge page Care Plan Goals: Read below Health Concerns: Read below Plan of Treatment: You were admitted to the hospital for evaluation of altered mentation and reported seizures. Believed to be a result of not taking your medications as prescribed. You were evaluated by neurologist as a brain image was negative for any acute findings. Recommendations to continue your home medications. Evaluated by the care team for depression with outpatient resources available for you. Assessment: Continue your home medications as prescribed To follow-up with your psychiatrist as outpatient to review your medication list if it can be simplified
== END 2020-08-06 14:12 | disposition home or self-care (01) ==
LOC: HO.ED 15:53 → HO.EDOVER 16:21 → HO.S3 16:35
PROVIDERS: Physician Assistant; Admitting Provider Internal Medicine; Emergency Provider Emergency Medicine; PCP Family Medicine; Visit Provider Student in an Organized Health Care Education/Training Program
DX: R56.9 Unspecified convulsions (principal); G93.40 Encephalopathy, unspecified; E87.2 Acidosis; J43.9 Emphysema, unspecified; J45.30 Mild persistent asthma, uncomplicated; I25.2 Old myocardial infarction; D64.9 Anemia, unspecified; F31.9 Bipolar disorder, unspecified; F43.10 Post-traumatic stress disorder, unspecified; R45.851 Suicidal ideations; R41.82 Altered mental status, unspecified; Z88.6 Allergy status to analgesic agent; Z91.030 Bee allergy status; Z91.011 Allergy to milk products; Z91.018 Allergy to other foods; Z88.5 Allergy status to narcotic agent; Z88.8 Allergy status to other drugs, medicaments and biological substances; Z91.048 Other nonmedicinal substance allergy status; Z95.0 Presence of cardiac pacemaker; Z98.84 Bariatric surgery status; Z20.822 Contact with and (suspected) exposure to COVID-19; Z77.22 Contact with and (suspected) exposure to environmental tobacco smoke (acute) (chronic); Z91.14 Patient's other noncompliance with medication regimen; Z79.01 Long term (current) use of anticoagulants
CPT/HCPCS: 36415; 51701; 70450; 71045; 80048; 80076; 80307; 81001; 81025; 82077; 82550; 82947; 83605; 83735; 85025; 85027; 85610; 85730; 87040; 87635; 93005; 96361; 96372; 96374; 96375; 99218; 99285; 99291; J1650; J2060

== ENCOUNTER 2020-10-11 13:05 | Emergency (ER) | payer MEDICARE, MEDICAID, SELFPAY ==
--- NOTE | ~2020-10-11 | XR_ITS ---
EXAMINATION: XR CHEST CLINICAL INFORMATION: Cough COMPARISON: Chest x-ray August 04, 2020 TECHNIQUE: Frontal view of the chest was obtained. FINDINGS: Cardiac silhouette is normal in size. Dual lead pacemaker again noted. The lungs are adequately aerated. There is no lobar consolidation. No pleural effusion or pneumothorax. No gross osseous abnormality. XR/XR chest 1V IMPRESSION: No acute pulmonary pathology.
[2020-10-11 13:09] VITALS: BP 122/64; PULSE 108
[2020-10-11 13:11] VITALS: BP 120/80; PULSE 95; RESP 16; O2SAT 97; BMI 39.9
[2020-10-11 13:43] LABS: MANUAL DIFF FLAG NO
[2020-10-11] MEDS: 0.9 % Sodium Chloride 500 ML IV (13:44)
[2020-10-11 13:46] LABS: Eosinophils Absolute Auto 0.1 X10*3/uL (0.0-0.4); Eosinophils Percent Auto 0.9 % (0-4); Hematocrit 36.4 % (37-47); Hemoglobin 11.9 g/dl (12.0-16.0); Imm Gran Abs Auto 0.03 X10*3/uL (0.00-0.03); Imm Gran Pct Auto 0.4 % (0.0-0.4); Lymphocytes Percent Auto 25.8 % (20-40); Mean Corpuscular HGB Conc 32.7 g/dl (31.0-35.0); Mean Corpuscular Hemoglobin 22.8 pg (27.0-33.0); Mean Corpuscular Volume 69.7 fL (80-98); Monocytes Absolute Auto 0.7 X10*3/uL (0.1-1.2); Monocytes Percent Auto 9.1 % (2-11); Neutrophils Absolute Auto 5.1 X10*3/uL (2.0-8.3); Neutrophils Percent Auto 63.8 % (45-73); Red Blood Count 5.22 X10*6/uL (4.20-5.50); Red Cell Distribution Width 19.9 % (11.0-16.0); White Blood Count 7.9 X10*3/uL (4.8-10.8)
[2020-10-11 13:47] LABS: Immature Retic Fraction 15.9 % (3.0-15.9); Retic HGB Equivalent 27.2 pg (30.0-35.0); Reticulocyte Percent 1.3 % (0.5-1.8); Reticulocytes Absolute 0.065 X10*6/uL (0.026-0.095)
--- NOTE | 2020-10-11 13:47 | ED.GENADULT ---
HPI - General Adult General Chief complaint: General Medical Stated complaint: ?transfussion Time Seen by Provider: 10/11/20 13:28 Source: EMS Mode of arrival: wheelchair Limitations: no limitations History of Present Illness HPI narrative: Pleasant 44-year-old female who has a history of deep venous thrombosis and PE she is chronically anticoagulated on Coumadin she currently takes 10 mg 3 days a week and 15 mg 4 days a week she has a history of cardiomyopathy as well status post ppm placement, epilepsy, cervical cancer, asthma, morbid obesity status post gastric bypass, history of bipolar disorder and dissociative disorder in addition to other history as noted below she presents today with complaint of generalized body aches and also having bruising all over her body which she reports she has had in the past when her INR level was elevated. States she also noted some streak of redness in her stool today. States overall feels body ache which she has history of fibromyalgia however the bruising has made her concerned. She otherwise denies any chest pain, shortness of breath however does report some dry cough. Off note she has been admitted for coagulopathy in the past with INR as high as 26 she does administer her own Coumadin and monitors her own INR. Onset (ago): day(s) Location: back, left, right, upper extremity and lower extremity Radiation: non-radiation Severity: moderate Quality: aching Pain Consistency: constant Relieving factors: none Exacerbating factors: none Associated symptoms: denies other symptoms Treatments prior to arrival: none Related Data Home Medications Medication Instructions Recorded Confirmed jghbkeqwnm-kcqhuvukvrznu-tswnrihe 1 tab PO TID PRN 03/15/20 08/04/20 50 mg-325 mg-40 mg tablet diazepam 10 mg tablet 1 tab PO BEDTIME 03/15/20 08/04/20 dicyclomine 20 mg tablet 1 tab PO QID 03/15/20 08/04/20 hydroxyzine pamoate 50 mg capsule 1 cap PO TID PRN 03/15/20 08/04/20 ipratropium 20 mcg-albuterol 100 1 puff PO QID 03/15/20 08/04/20 mcg/actuation mist for inhalation (Combivent Respimat) lamotrigine 100 mg tablet 1 tab PO BID 03/15/20 08/04/20 lamotrigine 25 mg tablet 1 tab PO DAILY 03/15/20 08/04/20 loratadine 10 mg tablet 1 tab PO DAILY 03/15/20 08/04/20 olanzapine 15 mg tablet 1 tab PO BEDTIME 03/15/20 08/04/20 ondansetron HCl 8 mg tablet 1 tab PO TID PRN 03/15/20 08/04/20 prazosin 2 mg capsule 1 cap PO BEDTIME 03/15/20 08/04/20 pregabalin 200 mg capsule 1 cap PO TID 03/15/20 08/04/20 sucralfate 100 mg/mL oral 10 ml PO QIDACHS 03/15/20 08/04/20 suspension topiramate 100 mg tablet 200 mg PO DAILY 03/15/20 08/04/20 topiramate 100 mg tablet 400 mg PO BEDTIME 03/15/20 08/04/20 zonisamide 100 mg capsule 1 cap PO BID 03/15/20 08/04/20 diazepam 5 mg tablet 1 tab PO BID@08,14 06/17/20 08/04/20 fluticasone propionate 50 2 spray INTRANASAL BID 06/17/20 08/04/20 mcg/actuation nasal spray,suspension omeprazole 40 mg capsule,delayed 1 cap PO BID 06/17/20 08/04/20 release tizanidine 4 mg tablet 1 tab PO TID PRN 06/17/20 08/04/20 warfarin 10 mg tablet 10 mg PO SUTUTHSA@16 06/17/20 08/04/20 warfarin 5 mg tablet 15 mg PO MOWEFR@16 06/17/20 08/04/20 ipratropium 0.5 mg-albuterol 3 mg 3 ml INHALATION QID PRN 08/04/20 08/04/20 (2.5 mg base)/3 mL nebulization soln Previous Rx's Medication Instructions Recorded oxycodone 5 mg tablet 5 mg PO Q8H PRN #10 tab 08/06/20 Allergies Allergy/AdvReac Type Severity Reaction Status Date / Time bee pollen [Bee Stings] Allergy Severe ANAPHYLAXIS Verified 06/17/20 04:16 honey Allergy Severe throat Verified 06/17/20 04:16 closes mushroom Allergy Severe ANAPHYLAXIS Verified 06/17/20 04:16 aspirin Allergy Unknown BLEED Verified 06/17/20 04:16 Bleach (Sodium Hypochlorite) Allergy Unknown RASH Verified 06/17/20 04:16 [BLEACH (SODIUM HYPOCHLORITE)] lactose [Lactose] Allergy Unknown STOMACH Verified 06/17/20 04:16 ACHE morphine [Morphine] Allergy Unknown ITCHING Verified 06/17/20 04:16 ibuprofen AdvReac Unknown Stomach Verified 06/17/20 04:16 Upset NSAIDS (Non-Steroidal AdvReac Unknown BLEED,COUMA Verified 06/17/20 04:16 Anti-Inflamma DIN [Nsaids] Review of Systems Review of Systems: Constitutional: No Weight loss, No Fever, No Chills, No Night Sweats, No Fatigue, No Malaise ENT/Mouth: No Hearing loss, No Ear Pain, No Nasal Congestion, No Sinus Pain, No Hoarseness, No sore throat, No Rhinorrhea, No Swallowing Difficulty Eyes: No Eye Pain, No Swelling, No Redness, No Foreign Body, No Discharge, No Vision Changes Cardiovascular: No Chest Pain, No SOB, No Dyspnea on Exertion, No Orthopnea, No Edema, No Palpitations Respiratory: + Cough, No Sputum, No Wheezing, No Smoke Exposure, No Dyspnea Gastrointestinal: No Nausea, No Vomiting, No Diarrhea, No Constipation, No abdominal Pain, + Hematochezia Genitourinary: no irregular bleeding, No Dysuria, No Urinary Frequency, No Hematuria, No Urinary Incontinence, No Urgency, No Flank Pain, No Urinary Flow Changes, No Hesitancy Musculoskeletal: No joint pain, No Myalgias, No Joint Swelling Skin: No Skin Lesions, No rash Neuro: No Weakness, No Numbness, No Paresthesias, No Loss of Consciousness, No Dizziness, No Headache Psych: No Anxiety/Panic, No Depression, No SI/HI/AH/VH, No Social Issues Heme/Lymph: No Bruising, No Bleeding,No Lymphadenopathy Endocrine: No Polyuria, No Polydipsia, No Temperature Intolerance [facility] Past Medical History Medical History Anemia Bipolar 1 disorder Cerebral aneurysm Cervical cancer Chronic migraine COPD (chronic obstructive pulmonary disease) Deep vein thrombosis Elevated INR Falls Heart failure Hemorrhagic shock Herniated disc Meningioma Neuropathy Pacemaker Pulmonary embolism Seizure disorder Stomach cancer Urinary retention Surgical History Gastric bypass status for obesity Hx of cholecystectomy Social History Social History Household Members: Significant Other Housing: Apartment Do you presently have visiting nurse or other home services: Yes ([employer]) Unable to assess alcohol history related to: Unable to respond Alcohol intake: unknown Patient Tobacco Use Status: Never used Tobacco Cigarettes Per Day: 10 Second Hand Smoke Exposure: Yes Substance Use Type: Marijuana Advance Directives: No Advance Directives Information Provided: Yes Patient : No service: No Current occupational status: disabled Physical Exam Vital Signs: Vital Signs: Last Vital Signs Temp 97.9 F 10/11/20 15:06 Pulse 88 10/11/20 15:06 Resp 16 10/11/20 15:06 BP 137/74 10/11/20 15:06 Pulse Ox 99 10/11/20 15:06 Body Mass Index 39.9 Const: General: cooperative and healthy appearing; No acute distress or intoxicated appearing Nutritional Appearance: obese Orientation/consciousness: patient oriented x3 HENMT: Head: Yes normal to inspection Ears: hearing grossly normal bilaterally Mouth: Normal oral and palatal mucosa present Eyes: General: appearance normal, both eyes and all related structures Visual Ley: normal visual ley by confrontation Neck: Neck: Yes normal visual inspection, No positive Brudzinski's sign, No positive Kernig's sign and No tender Thyroid: Thyroid normal Chest: Chest palpation & inspection: normal inspection of the chest Resp: Effort & Inspection: normal respiratory effort Auscultation: wheezes (Very mild) expiratory wheezes and left upper Cardio: Jugular venous distension: no JVD Rhythm: regular rhythm Heart sounds: S1 normal heart sound present GI: Inspection: Yes normal to inspection Percussion: Yes normal to percussion Auscultation: normal bowel sounds : General: Yes no CVA tenderness Back/Spine/Pelvis: Back: no CVA tenderness Skin: Other: Several areas of ecchymosis areas on the bilateral forearm volar aspect thigh right, these are yellowish to bluish. There is no swelling or edema or tender palpation at the sites. Neuro: General: patient oriented x3 Extrem: General: Yes normal to inspection Course Reevaluation(s) Reevaluation #1: In review 44-year-old female with above history presenting with complaint of bruising or past several days history of coagulopathy she is on Coumadin for chronic DVT/PE she does have slight dry cough on arrival she did not complain of this. Mild for sister wheezing. She will need labs also during history she also reported that she noted some streak of redness in her stool. Will get labs and treat with IV fluids. She does have history of chronic pain but this for more acute diffusely did ask for Dilaudid by me upon arrival. Reevaluation #2: Lab shows INR 7.1 84.4, PTT 115.9. Occult positive on cart visually brown appearing. Given the positive occult vitamin K 5 mg IV was given plan for admission. Case was discussed with hospitalist Dr. Guillen who came down to bedside to evaluate the patient then she changed her mind states she does not want to stay in hospital she will be okay at home. She has ample amount of services at home states she has had bad experiences in hospital in the past and is afraid of this. Provided reassurance and review of plan of care with her she seems more fixated on getting a prescription of narcotic pain medication Form specifically asking for prescription of Dilaudid or oxycodone states if he just gets 10 at least. Aware that she has chronic pain and this is not appropriate for the ER to dispense pain medications for this. Helder hernandez reviewed had 90 tabs of oxycodone at the end of August. As it relates to her INR I strongly encouraged her to stay however she does not want to she understands this she is of sound mind makes her own decisions. She will skip today's Coumadin dose as well as tomorrow and have INR rechecked by the INR clinic at [facility] and further guidance based on that. Medical Decision Making Lab Data Result diagrams: 10/11/20 13:38 10/11/20 13:38 Labs: Lab Results 10/11/20 10/11/20 10/11/20 Range/Units 13:38 13:38 13:38 WBC 7.9 (4.8-10.8) X10*3/uL RBC 5.22 (4.20-5.50) X10*6/uL Hgb 11.9 L (12.0-16.0) g/dl Hct 36.4 L (37-47) % MCV 69.7 L (80-98) fL MCH 22.8 L (27.0-33.0) pg MCHC 32.7 (31.0-35.0) g/dl RDW 19.9 H (11.0-16.0) % Plt Count 155 L D (160-400) X10*3/uL MPV Not Reportable Immature Gran % (Auto) 0.4 (0.0-0.4) % Neut % (Auto) 63.8 (45-73) % Lymph % (Auto) 25.8 (20-40) % [place] % (Auto) 9.1 (2-11) % Eos % (Auto) 0.9 (0-4) % Baso % (Auto) 0.0 (0-2) % Lymph # (Auto) 2.0 (1.2-4.9) X10*3/uL [place] # (Auto) 0.7 (0.1-1.2) X10*3/uL Eos # (Auto) 0.1 (0.0-0.4) X10*3/uL Baso # (Auto) 0.0 (0.0-0.2) X10*3/uL Abs Immat Gran (auto) 0.03 (0.00-0.03) X10*3/uL Absolute Neuts (auto) 5.1 (2.0-8.3) X10*3/uL Absolute Nucleated RBC 0.000 (0.0-0.012) X10*3/uL Nucleated RBC % (auto) 0.0 (0.0-0.2) /100WBC Absolute Retic (0.026-0.095) X10*6/uL Percent Retic (0.5-1.8) % Immature Retic Fraction (3.0-15.9) % Retic Hgb Equivalent (30.0-35.0) pg PT 84.4 H (9.9-13.0) SEC INR 7.1 H* D (0.9-1.1) APTT 115.9 H* (24.1-38.0) SEC Sodium 144 (135-145) mmol/L Potassium 3.7 D (3.3-5.1) mmol/L Chloride 118 H (96-108) mmol/L Carbon Dioxide 19 L (22-29) mmol/L Anion Gap 11 L (12-20) BUN 9 (9-16) mg/dL Creatinine 0.77 (0.5-1.4) mg/dL Estim Creat Clear Calc 113.2 Estimated GFR > 60 Random Glucose 94 (60-115) mg/dL Calcium 8.0 L (8.4-10.2) mg/dL Total Bilirubin 0.3 (0.0-1.0) mg/dL AST 28 D (5-31) U/L ALT 32 H (0-31) U/L Alkaline Phosphatase 144 H D (39-117) U/L Total Protein 5.9 L (6.5-8.0) g/dL Albumin 3.5 (3.5-5.0) g/dL Urine Color Urine Appearance Urine pH (5.0-8.0) Ur Specific [place] (1.005-1.025) Urine Protein (NEG-TRACE) MG/DL Urine Glucose (UA) (NEG) MG/DL Urine Ketones (NEG) MG/DL Urine Blood (NEG) Urine Nitrite (NEG) Ur Leukocyte Esterase (NEG) Urine RBC (0) /HPF Urine WBC (0-4) /HPF Ur Squamous Epith Cells /LPF Urine Bacteria /LPF Stool Occult Blood (NEGATIVE) Coronavirus (PCR) (Negative) Influenza Type A (PCR) (Negative) Influenza Type B (PCR) (Negative) RSV RNA Qual (PCR) (Negative) 10/11/20 10/11/20 10/11/20 Range/Units 13:38 13:38 14:35 WBC (4.8-10.8) X10*3/uL RBC (4.20-5.50) X10*6/uL Hgb (12.0-16.0) g/dl Hct (37-47) % MCV (80-98) fL MCH (27.0-33.0) pg MCHC (31.0-35.0) g/dl RDW (11.0-16.0) % Plt Count (160-400) X10*3/uL MPV Immature Gran % (Auto) (0.0-0.4) % Neut % (Auto) (45-73) % Lymph % (Auto) (20-40) % [place] % (Auto) (2-11) % Eos % (Auto) (0-4) % Baso % (Auto) (0-2) % Lymph # (Auto) (1.2-4.9) X10*3/uL [place] # (Auto) (0.1-1.2) X10*3/uL Eos # (Auto) (0.0-0.4) X10*3/uL Baso # (Auto) (0.0-0.2) X10*3/uL Abs Immat Gran (auto) (0.00-0.03) X10*3/uL Absolute Neuts (auto) (2.0-8.3) X10*3/uL Absolute Nucleated RBC (0.0-0.012) X10*3/uL Nucleated RBC % (auto) (0.0-0.2) /100WBC Absolute Retic 0.065 (0.026-0.095) X10*6/uL Percent Retic 1.3 (0.5-1.8) % Immature Retic Fraction 15.9 (3.0-15.9) % Retic Hgb Equivalent 27.2 L (30.0-35.0) pg PT (9.9-13.0) SEC INR (0.9-1.1) APTT (24.1-38.0) SEC Sodium (135-145) mmol/L Potassium (3.3-5.1) mmol/L Chloride (96-108) mmol/L Carbon Dioxide (22-29) mmol/L Anion Gap (12-20) BUN (9-16) mg/dL Creatinine (0.5-1.4) mg/dL Estim Creat Clear Calc Estimated GFR Random Glucose (60-115) mg/dL Calcium (8.4-10.2) mg/dL Total Bilirubin (0.0-1.0) mg/dL AST (5-31) U/L ALT (0-31) U/L Alkaline Phosphatase (39-117) U/L Total Protein (6.5-8.0) g/dL Albumin (3.5-5.0) g/dL Urine Color Urine Appearance Urine pH (5.0-8.0) Ur Specific [place] (1.005-1.025) Urine Protein (NEG-TRACE) MG/DL Urine Glucose (UA) (NEG) MG/DL Urine Ketones (NEG) MG/DL Urine Blood (NEG) Urine Nitrite (NEG) Ur Leukocyte Esterase (NEG) Urine RBC (0) /HPF Urine WBC (0-4) /HPF Ur Squamous Epith Cells /LPF Urine Bacteria /LPF Stool Occult Blood POSITIVE (NEGATIVE) Coronavirus (PCR) NEGATIVE (Negative) Influenza Type A (PCR) NEGATIVE (Negative) Influenza Type B (PCR) NEGATIVE (Negative) RSV RNA Qual (PCR) NEGATIVE (Negative) 10/11/20 Range/Units 15:28 WBC (4.8-10.8) X10*3/uL RBC (4.20-5.50) X10*6/uL Hgb (12.0-16.0) g/dl Hct (37-47) % MCV (80-98) fL MCH (27.0-33.0) pg MCHC (31.0-35.0) g/dl RDW (11.0-16.0) % Plt Count (160-400) X10*3/uL MPV Immature Gran % (Auto) (0.0-0.4) % Neut % (Auto) (45-73) % Lymph % (Auto) (20-40) % [place] % (Auto) (2-11) % Eos % (Auto) (0-4) % Baso % (Auto) (0-2) % Lymph # (Auto) (1.2-4.9) X10*3/uL [place] # (Auto) (0.1-1.2) X10*3/uL Eos # (Auto) (0.0-0.4) X10*3/uL Baso # (Auto) (0.0-0.2) X10*3/uL Abs Immat Gran (auto) (0.00-0.03) X10*3/uL Absolute Neuts (auto) (2.0-8.3) X10*3/uL Absolute Nucleated RBC (0.0-0.012) X10*3/uL Nucleated RBC % (auto) (0.0-0.2) /100WBC Absolute Retic (0.026-0.095) X10*6/uL Percent Retic (0.5-1.8) % Immature Retic Fraction (3.0-15.9) % Retic Hgb Equivalent (30.0-35.0) pg PT (9.9-13.0) SEC INR (0.9-1.1) APTT (24.1-38.0) SEC Sodium (135-145) mmol/L Potassium (3.3-5.1) mmol/L Chloride (96-108) mmol/L Carbon Dioxide (22-29) mmol/L Anion Gap (12-20) BUN (9-16) mg/dL Creatinine (0.5-1.4) mg/dL Estim Creat Clear Calc Estimated GFR Random Glucose (60-115) mg/dL Calcium (8.4-10.2) mg/dL Total Bilirubin (0.0-1.0) mg/dL AST (5-31) U/L ALT (0-31) U/L Alkaline Phosphatase (39-117) U/L Total Protein (6.5-8.0) g/dL Albumin (3.5-5.0) g/dL Urine Color STRAW Urine Appearance CLEAR Urine pH 6.5 (5.0-8.0) Ur Specific [place] <= 1.005 (1.005-1.025) Urine Protein NEG (NEG-TRACE) MG/DL Urine Glucose (UA) NEG (NEG) MG/DL Urine Ketones NEG (NEG) MG/DL Urine Blood NEG (NEG) Urine Nitrite NEG (NEG) Ur Leukocyte Esterase NEG (NEG) Urine RBC 0 (0) /HPF Urine WBC 0 (0-4) /HPF Ur Squamous Epith Cells TRACE /LPF Urine Bacteria NONE /LPF Stool Occult Blood (NEGATIVE) Coronavirus (PCR) (Negative) Influenza Type A (PCR) (Negative) Influenza Type B (PCR) (Negative) RSV RNA Qual (PCR) (Negative) ECG Data Interpretation: Normal sinus rhythm Normal ECG When compared with ECG of 16-JUN-2020 22:43, No significant change was found ? Discharge Plan Discharge Clinical Impression: Supratherapeutic INR, RB (rectal bleeding) Patient Disposition: Home, Self-Care Instructions: Hypercoagulation (ED) Additional Instructions: Your sign out against medical advice I have recommended that you stay in hospital for observation Was 7.1 (normal range for you would be 2-3) Please skip today's Coumadin dose as well as tomorrow Have your INR checked tomorrow Follow up with primary doctor closely Return if any concerns or worsening symptoms Thank you Prescriptions: No Action sucralfate 100 mg/mL suspension 10 ml PO QIDACHS RF: 0 ondansetron HCl 8 mg tablet 1 tab PO TID PRN (Reason: nausea/vomiting) RF: 0 hydroxyzine pamoate 50 mg capsule 1 cap PO TID PRN (Reason: anxiety) RF: 0 nngdsoykmm-ezjhdrsbaqywm-denm 50-325-40 mg tablet 1 tab PO TID PRN (Reason: Headache) RF: 0 lamotrigine 25 mg tablet 1 tab PO DAILY RF: 0 zonisamide 100 mg capsule 1 cap PO BID RF: 0 dicyclomine 20 mg tablet 1 tab PO QID RF: 0 olanzapine 15 mg tablet 1 tab PO BEDTIME RF: 0 diazepam 10 mg tablet 1 tab PO BEDTIME RF: 0 topiramate 100 mg Tablet 200 mg PO DAILY RF: 0 topiramate 100 mg Tablet 400 mg PO BEDTIME RF: 0 lamotrigine 100 mg tablet 1 tab PO BID RF: 0 loratadine 10 mg tablet 1 tab PO DAILY RF: 0 prazosin 2 mg capsule 1 cap PO BEDTIME RF: 0 pregabalin 200 mg capsule 1 cap PO TID RF: 0 Combivent Respimat 20-100 mcg/actuation mist 1 puff PO QID RF: 0 tizanidine 4 mg tablet 1 tab PO TID PRN (Reason: muscle spasm) RF: 0 omeprazole 40 mg capsule,delayed release(DR/EC) 1 cap PO BID RF: 0 warfarin 5 mg Tablet 15 mg PO MOWEFR@16 RF: 0 fluticasone propionate 50 mcg/actuation spray,suspension 2 spray intranasal BID RF: 0 diazepam 5 mg tablet 1 tab PO BID@08,14 RF: 0 warfarin 10 mg tablet 10 mg PO SUTUTHSA@16 RF: 0 ipratropium-albuterol 0.5 mg-3 mg(2.5 mg base)/3 mL solution for nebulization 3 ml inhalation QID PRN (Reason: wheezing) RF: 0 oxycodone 5 mg tablet 5 mg PO Q8H PRN (Reason: pain) Qty: 10 RF: 0 Referrals: Klever Gabriel MD [Primary Care Provider] - 1 day Stand Alone Forms: Against Medical Advice
[2020-10-11 14:05] LABS: Prothrombin Time 84.4 SEC (9.9-13.0)
[2020-10-11 14:09] LABS: Platelet Count 155 X10*3/uL (160-400)
[2020-10-11] MEDS: Albuterol/Iprat 2.5/0.5MG 3 ML AMPUL.NEB INHALE (14:11)
[2020-10-11 14:14] VITALS: PULSE 86; O2SAT 98
[2020-10-11 14:17] LABS: INTERNATIONAL NORM RATIO 7.1 (0.9-1.1); Partial Thromboplastin Time 115.9 SEC (24.1-38.0)
[2020-10-11 14:20] LABS: Alanine Aminotransferase 32 U/L (0-31); Albumin Level 3.5 g/dL (3.5-5.0); Alkaline Phosphatase 144 U/L (39-117); Anion Gap 11 (12-20); Aspartate Amino Transferase 28 U/L (5-31); Bilirubin Total 0.3 mg/dL (0.0-1.0); Blood Urea Nitrogen 9 mg/dL (9-16); Carbon Dioxide 19 mmol/L (22-29); Chloride 118 mmol/L (96-108); Creatinine Clr Calc Pharmacy 113.2; Estimated Glomerular Filt Rate > 60; Glucose Random 94 mg/dL (60-115); Potassium 3.7 mmol/L (3.3-5.1); Sodium 144 mmol/L (135-145); Total Protein 5.9 g/dL (6.5-8.0)
[2020-10-11 14:41] LABS: OBS Int Ctl Valid YES; OBS1 POSITIVE (NEGATIVE)
[2020-10-11] MEDS: LORazepam 2 MG/ML VIAL 0.5 MG IVPUSH (14:43)
[2020-10-11] MEDS: HYDROmorphone HCl 0.5 MG/0.5 ML SYRINGE IVPUSH (14:44)
[2020-10-11 14:53] LABS: Influenza A PCR NEGATIVE (Negative); Influenza B PCR NEGATIVE (Negative); Resp Syncy Virus RNA Qual PCR NEGATIVE (Negative); SARS COV2 PCR INHOUSE NEGATIVE (Negative)
[2020-10-11 15:06] VITALS: BP 137/74; PULSE 88; RESP 16; TEMP 36.6; O2SAT 99
[2020-10-11] MEDS: Phytonadione (Vit K1) 5 MG in 0.9 % Sodium Chloride 50 ML 50.5 MG IV (15:13)
[2020-10-11 15:34] LABS: Glucose Urine UA NEG (NEG); Leukocyte Esterase Urine NEG (NEG); Nitrite Urine NEG (NEG); PH 6.5 (5.0-8.0); Specific Gravity - Urine <= 1.005 (1.005-1.025); Urine Blood NEG (NEG); Urine Ketones NEG (NEG); Urine Protein NEG (NEG-TRACE)
[2020-10-11 15:35] LABS: Appearance Urine CLEAR; Color Urine STRAW
[2020-10-11 15:44] LABS: RBC Urine 0 /HPF (0); Squamous Epithelial Cell Urine TRACE /LPF; WBC Urine 0 /HPF (0-4)
--- NOTE | 2020-10-11 15:54 | PC.NURSE ---
patient refusing to be admitted under obs despite the physicians educating her about her risk of increased bleed with an elevated INR and that it would be AMA if the patient was to leave- patient understands this and verbalizes that she wants pain medication to go home and doesnt want to stay in the facility
[2020-10-11] MEDS: oxyCODONE HCl Immed Release 5 MG TABLET PO (16:21)
--- NOTE | 2020-10-11 16:41 | PC.NURSE ---
patient given dose of oxycodone prior to IV removal and discharge instructions- once again the patient was asked if she was sure she wanted to leave AMA as medical staff heavily advises that she stay and be observed for at least the night. Patient once again denied wanting to stay and accepted that she would be leaving AMA. Marina Bush nursing channel process supervisor contacted to confirm ambulance coverage when a patient leaves AMA and patient was informed that she may be held responsible for paying for the ambulance given the fact that she was leaving AMA and also that she medically does not necessitate the need for an ambulance. Patient agreeable and IV removed and ambulance booked.
== END 2020-10-11 17:07 | disposition home or self-care (01) ==
PROVIDERS: Nurse Practitioner Primary Care; Emergency Provider Internal Medicine; PCP Family Medicine
DX: K62.5 Hemorrhage of anus and rectum (principal); D68.8 Other specified coagulation defects; Z20.822 Contact with and (suspected) exposure to COVID-19; R05 Cough; Z79.01 Long term (current) use of anticoagulants; Z98.84 Bariatric surgery status; Z90.49 Acquired absence of other specified parts of digestive tract; Z85.41 Personal history of malignant neoplasm of cervix uteri; Z85.028 Personal history of other malignant neoplasm of stomach; Z86.711 Personal history of pulmonary embolism; Z86.718 Personal history of other venous thrombosis and embolism; Z95.0 Presence of cardiac pacemaker
CPT/HCPCS: 0241U; 36415; 71045; 80053; 81001; 82272; 85025; 85045; 85610; 85730; 94640; 96361; 96365; 96375; 99283; 99284; J1170; J2060; J3430

== ENCOUNTER 2021-01-27 10:44 | Emergency (ER) | payer MEDICARE, MEDICAID, SELFPAY ==
--- NOTE | ~2021-01-27 | XR_ITS ---
EXAMINATION: XR CHEST CLINICAL INFORMATION: Shortness of breath COMPARISON: Chest radiographs 10/11/2020, 08/04/2020 TECHNIQUE: Portable upright AP view of the chest was obtained. FINDINGS: Patient is rotated to the right. There is no pneumothorax, hyperinflation, infiltrate, groundglass opacity. The vascularity is normal. There is bipolar pacemaker. Heart is normal in size. No visible acute bony abnormality. XR/XR chest 1V IMPRESSION: Unremarkable examination.
--- NOTE | 2021-01-27 10:53 | ECG_ITS ---
Test Reason : diff breathing Blood Pressure : / mmHG Vent. Rate : 074 BPM Atrial Rate : 074 BPM P-R Int : 152 ms QRS Dur : 090 ms QT Int : 380 ms P-R-T Axes : 058 028 055 degrees QTc Int : 421 ms Normal sinus rhythm Normal ECG When compared with ECG of 04-AUG-2020 13:37, No significant change was found Heart rate has decreased Referred By: Generic ED Physician Electronically Signed By:AMISHA SNOWDEN MD
[2021-01-27 10:58] VITALS: BP 118/90; BP 95/58; PULSE 70; PULSE 78; RESP 20; TEMP 36.4; O2SAT 97; BMI 38.1
--- NOTE | 2021-01-27 11:13 | ED_ITS ---
HPI - General Adult General Chief complaint: Dyspnea Stated complaint: DIFF BREATHING Time Seen by Provider: 01/27/21 11:01 Source: patient and EMS Mode of arrival: EMS Limitations: no limitations History of Present Illness HPI narrative: Patient is brought to the emergency room by EMS. Patient called the ambulance because he was having difficulty breathing. Patient states her symptoms have been present for over a month. Patient also complaining of dysuria and rectal bleeding. When asked how long her symptoms have been present, patient states ?I do not know?. Patient also reports decreased p.o. intake. Related Data Home Medications Medication Instructions Recorded Confirmed [id number] 1 tab PO TID PRN 03/15/20 08/04/20 50 mg-325 mg-40 mg tablet diazepam 10 mg tablet 1 tab PO BEDTIME 03/15/20 08/04/20 dicyclomine 20 mg tablet 1 tab PO QID 03/15/20 08/04/20 hydroxyzine pamoate 50 mg capsule 1 cap PO TID PRN 03/15/20 08/04/20 ipratropium 20 mcg-albuterol 100 1 puff PO QID 03/15/20 08/04/20 mcg/actuation mist for inhalation (Combivent Respimat) lamotrigine 100 mg tablet 1 tab PO BID 03/15/20 08/04/20 lamotrigine 25 mg tablet 1 tab PO DAILY 03/15/20 08/04/20 loratadine 10 mg tablet 1 tab PO DAILY 03/15/20 08/04/20 olanzapine 15 mg tablet 1 tab PO BEDTIME 03/15/20 08/04/20 ondansetron HCl 8 mg tablet 1 tab PO TID PRN 03/15/20 08/04/20 prazosin 2 mg capsule 1 cap PO BEDTIME 03/15/20 08/04/20 pregabalin 200 mg capsule 1 cap PO TID 03/15/20 08/04/20 sucralfate 100 mg/mL oral 10 ml PO QIDACHS 03/15/20 08/04/20 suspension topiramate 100 mg tablet 200 mg PO DAILY 03/15/20 08/04/20 topiramate 100 mg tablet 400 mg PO BEDTIME 03/15/20 08/04/20 zonisamide 100 mg capsule 1 cap PO BID 03/15/20 08/04/20 diazepam 5 mg tablet 1 tab PO BID@08,14 06/17/20 08/04/20 fluticasone propionate 50 2 spray INTRANASAL BID 06/17/20 08/04/20 mcg/actuation nasal spray,suspension omeprazole 40 mg capsule,delayed 1 cap PO BID 06/17/20 08/04/20 release tizanidine 4 mg tablet 1 tab PO TID PRN 06/17/20 08/04/20 warfarin 10 mg tablet 10 mg PO SUTUTHSA@16 06/17/20 08/04/20 warfarin 5 mg tablet 15 mg PO MOWEFR@16 06/17/20 08/04/20 ipratropium 0.5 mg-albuterol 3 mg 3 ml INHALATION QID PRN 08/04/20 08/04/20 (2.5 mg base)/3 mL nebulization soln Previous Rx's Medication Instructions Recorded oxycodone 5 mg tablet 5 mg PO Q8H PRN #10 tab 08/06/20 Allergies Allergy/AdvReac Type Severity Reaction Status Date / Time bee pollen [Bee Stings] Allergy Severe ANAPHYLAXIS Verified 06/17/20 04:16 honey Allergy Severe throat Verified 06/17/20 04:16 closes mushroom Allergy Severe ANAPHYLAXIS Verified 06/17/20 04:16 aspirin Allergy Unknown BLEED Verified 06/17/20 04:16 Bleach (Sodium Hypochlorite) Allergy Unknown RASH Verified 06/17/20 04:16 [BLEACH (SODIUM HYPOCHLORITE)] lactose [Lactose] Allergy Unknown STOMACH Verified 06/17/20 04:16 ACHE morphine [Morphine] Allergy Unknown ITCHING Verified 06/17/20 04:16 ibuprofen AdvReac Unknown Stomach Verified 06/17/20 04:16 Upset NSAIDS (Non-Steroidal AdvReac Unknown BLEED,COUMA Verified 06/17/20 04:16 Anti-Inflamma DIN [Nsaids] Review of Systems Review of Systems: Constitutional : No Weight loss, No Fever, No Chills, No Night Sweats, complaining of fatigue and generalized malaise ENT/Mouth : No Hearing loss, No Ear Pain, No Nasal Congestion, No Sinus Pain, No Hoarseness, No sore throat, No Rhinorrhea, No Swallowing Difficulty Eyes: No Eye Pain, No Swelling, No Redness, No Foreign Body, No Discharge, No Vision Changes Cardiovascular : No Chest Pain, No SOB, No Dyspnea on Exertion, No Orthopnea, No Edema, No Palpitations Respiratory : Complaining of worsening chronic cough, complaining of wheezing, complaining of shortness of breath that does not resolve with inhaler use Gastrointestinal : No Nausea, No Vomiting, No Diarrhea, complaining of rectal bleeding for unknown period of time Genitourinary : no irregular bleeding, complaining of dysuria on pressure with urination. Musculoskeletal : No joint pain, No Myalgias, No Joint Swelling Skin : No Skin Lesions, No rash Neuro : No Weakness, No Numbness, No Paresthesias, No Loss of Consciousness, No Dizziness, No Headache Psych : No Anxiety/Panic, No Depression, No SI/HI/AH/VH, No Social Issues, Heme/Lymph: No Bruising, No Bleeding,No Lymphadenopathy Endocrine : No Polyuria, No Polydipsia, No Temperature Intolerance [facility] Past Medical History Medical History Anemia Bipolar 1 disorder Cerebral aneurysm Cervical cancer Chronic migraine COPD (chronic obstructive pulmonary disease) Deep vein thrombosis Elevated INR Falls Heart failure Hemorrhagic shock Herniated disc Meningioma Neuropathy Pacemaker Pulmonary embolism Seizure disorder Stomach cancer Urinary retention Surgical History Gastric bypass status for obesity Hx of cholecystectomy Social History Social History Household Members: Significant Other Housing: Apartment Do you presently have visiting nurse or other home services: Yes ([employer]) Unable to assess alcohol history related to: Unable to respond Alcohol intake: never Patient Tobacco Use Status: Current everyday Tobacco user Cigarettes Per Day: 10 Second Hand Smoke Exposure: Yes Use of substances other than those prescribed or required for medical reasons: No Substance Use Type: Marijuana Advance Directives: Yes Advance Directives on File: Yes Advance Directives Date on File: 08/07/20 Patient : No service: No Current occupational status: disabled Physical Exam Vital Signs: Vital Signs: Last Vital Signs Temp 97.5 F 01/27/21 11:18 Pulse 66 01/27/21 17:00 Resp 20 01/27/21 17:00 BP 121/94 H 01/27/21 17:00 Pulse Ox 99 01/27/21 17:00 Body Mass Index 38.1 Const: Other: Appearance: Alert. Oriented X3. No acute distress. Eyes: Pupils equal, round and reactive to light. ENT: Pharynx normal. Neck: Normal inspection. Neck supple. No lymph nodes noted. No crepitus CVS: Normal heart rate and rhythm. Pulses normal. Normal S1 and S2 Respiratory: No respiratory distress. Breath sounds normal. No Wheezing. No rales Abdomen: Soft and nontender. No rigidity. No distention. Digital rectal exam shows red blood, questionable internal hemorrhoids palpated Skin: Skin warm and dry. Normal skin color. Normal skin turgor. Extremities: No lower extremity edema. No Lacerations. No Rash Neuro: Oriented X 3. No motor deficit. No sensory deficit. Moving all extermities. No slurred speech. Course Course Course Narrative: Patient's guaiac was positive. Repeat H&H stable. Although patient is on Coumadin, INR is therapeutic. It is more likely that the GI/rectal bleeding secondary to internal hemorrhoids. INR is therapeutic. Also, patient's troponin is at baseline, D-dimer negative, EKG shows no acute abnormalities. I discussed with our hospitalist, at this time patient's H&H is within normal limits, no need for admission. Also, I spoke with Dr. Medina from GI , patient will likely need a colonoscopy in an outpatient basis. Patient's information has been relayed to his office. Prior to discharge patient denies chest pain, no shortness of breath, abdominal pain. Patient complaining lower extremity p ain, lower back pain Medical Decision Making Lab Data Result diagrams: 01/27/21 15:28 01/27/21 12:18 Labs: Lab Results 01/27/21 01/27/21 01/27/21 Range/Units 11:39 11:39 12:11 WBC (4.8-10.8) X10*3/uL RBC (4.20-5.50) X10*6/uL Hgb (12.0-16.0) g/dl Hct (37.0-47.0) % MCV (80.0-98.0) fL MCH (27.0-33.0) pg MCHC (31.0-35.0) g/dl RDW (11.0-16.0) % Plt Count (160-400) X10*3/uL MPV Immature Gran % (Auto) (0.0-0.4) % Neut % (Auto) (45-73) % Lymph % (Auto) (20-40) % Pratt % (Auto) (2-11) % Eos % (Auto) (0-4) % Baso % (Auto) (0-2) % Lymph # (Auto) (1.2-4.9) X10*3/uL Pratt # (Auto) (0.1-1.2) X10*3/uL Eos # (Auto) (0.0-0.4) X10*3/uL Baso # (Auto) (0.0-0.2) X10*3/uL Abs Immat Gran (auto) (0.00-0.03) X10*3/uL Absolute Neuts (auto) (2.0-8.3) x10*3/uL Absolute Nucleated RBC (0.0-0.012) X10*3/uL Nucleated RBC % (auto) (0.0-0.2) /100WBC PT (9.9-13.0) SEC INR (0.9-1.1) D-Dimer High Sensitivty NG/ML Sodium (135-145) mmol/L Potassium (3.3-5.1) mmol/L Chloride (96-108) mmol/L Carbon Dioxide (22-29) mmol/L Anion Gap (12-20) BUN (9-16) mg/dL Creatinine (0.5-1.4) mg/dL Estim Creat Clear Calc Estimated GFR Random Glucose (60-115) mg/dL Lactic Acid 0.9 (0.5-2.0) mmol/L Calcium (8.4-10.2) mg/dL Total Bilirubin (0.0-1.0) mg/dL Direct Bilirubin (0.0-0.5) mg/dL AST (5-31) U/L ALT (0-31) U/L Alkaline Phosphatase (39-117) U/L Troponin I High Sens (<3.5-17.0) ng/L B-Natriuretic Peptide (<100) pg/mL Total Protein (6.5-8.0) g/dL Albumin (3.5-5.0) g/dL Urine Color Urine Appearance Urine pH (5.0-8.0) Ur Specific [place] (1.005-1.025) Urine Protein (NEG-TRACE) MG/DL Urine Glucose (UA) (NEG) MG/DL Urine Ketones (NEG) MG/DL Urine Blood (NEG) Urine Nitrite (NEG) Ur Leukocyte Esterase (NEG) Stool Occult Blood POSITIVE (NEGATIVE) COVID-19 (DUTCH) Negative (Negative) COVID-19 Clin Com See Note 01/27/21 01/27/21 01/27/21 Range/Units 12:18 12:18 12:18 WBC 7.4 (4.8-10.8) X10*3/uL RBC 6.03 H (4.20-5.50) X10*6/uL Hgb 13.2 (12.0-16.0) g/dl Hct 42.0 (37.0-47.0) % MCV 69.7 L (80.0-98.0) fL MCH 21.9 L (27.0-33.0) pg MCHC 31.4 (31.0-35.0) g/dl RDW 22.2 H (11.0-16.0) % Plt Count 185 (160-400) X10*3/uL MPV Not Reportable Immature Gran % (Auto) 0.3 (0.0-0.4) % Neut % (Auto) 70.9 (45-73) % Lymph % (Auto) 21.9 (20-40) % Pratt % (Auto) 6.5 (2-11) % Eos % (Auto) 0.3 (0-4) % Baso % (Auto) 0.1 (0-2) % Lymph # (Auto) 1.6 (1.2-4.9) X10*3/uL Pratt # (Auto) 0.5 (0.1-1.2) X10*3/uL Eos # (Auto) 0.0 (0.0-0.4) X10*3/uL Baso # (Auto) 0.0 (0.0-0.2) X10*3/uL Abs Immat Gran (auto) 0.02 (0.00-0.03) X10*3/uL Absolute Neuts (auto) 5.2 (2.0-8.3) x10*3/uL Absolute Nucleated RBC 0.000 (0.0-0.012) X10*3/uL Nucleated RBC % (auto) 0.0 (0.0-0.2) /100WBC PT 32.0 H (9.9-13.0) SEC INR 2.8 H (0.9-1.1) D-Dimer High Sensitivty 185 NG/ML Sodium 140 (135-145) mmol/L Potassium 3.2 L (3.3-5.1) mmol/L Chloride 114 H (96-108) mmol/L Carbon Dioxide 19 L (22-29) mmol/L Anion Gap 10 L (12-20) BUN 4 L D (9-16) mg/dL Creatinine 0.72 (0.5-1.4) mg/dL Estim Creat Clear Calc 116.8 Estimated GFR > 60 Random Glucose 91 (60-115) mg/dL Lactic Acid (0.5-2.0) mmol/L Calcium 8.5 D (8.4-10.2) mg/dL Total Bilirubin 0.2 (0.0-1.0) mg/dL Direct Bilirubin < 0.2 (0.0-0.5) mg/dL AST 18 (5-31) U/L ALT 34 H (0-31) U/L Alkaline Phosphatase 138 H (39-117) U/L Troponin I High Sens (<3.5-17.0) ng/L B-Natriuretic Peptide (<100) pg/mL Total Protein 7.0 (6.5-8.0) g/dL Albumin 4.2 (3.5-5.0) g/dL Urine Color Urine Appearance Urine pH (5.0-8.0) Ur Specific [place] (1.005-1.025) Urine Protein (NEG-TRACE) MG/DL Urine Glucose (UA) (NEG) MG/DL Urine Ketones (NEG) MG/DL Urine Blood (NEG) Urine Nitrite (NEG) Ur Leukocyte Esterase (NEG) Stool Occult Blood (NEGATIVE) COVID-19 (DUTCH) (Negative) COVID-19 Clin Com 01/27/21 01/27/21 01/27/21 Range/Units 12:18 15:28 15:28 WBC (4.8-10.8) X10*3/uL RBC (4.20-5.50) X10*6/uL Hgb 13.4 (12.0-16.0) g/dl Hct 42.2 (37.0-47.0) % MCV (80.0-98.0) fL MCH (27.0-33.0) pg MCHC (31.0-35.0) g/dl RDW (11.0-16.0) % Plt Count (160-400) X10*3/uL MPV Immature Gran % (Auto) (0.0-0.4) % Neut % (Auto) (45-73) % Lymph % (Auto) (20-40) % Pratt % (Auto) (2-11) % Eos % (Auto) (0-4) % Baso % (Auto) (0-2) % Lymph # (Auto) (1.2-4.9) X10*3/uL [place]att # (Auto) (0.1-1.2) X10*3/uL Eos # (Auto) (0.0-0.4) X10*3/uL Baso # (Auto) (0.0-0.2) X10*3/uL Abs Immat Gran (auto) (0.00-0.03) X10*3/uL Absolute Neuts (auto) (2.0-8.3) x10*3/uL Absolute Nucleated RBC (0.0-0.012) X10*3/uL Nucleated RBC % (auto) (0.0-0.2) /100WBC PT (9.9-13.0) SEC INR (0.9-1.1) D-Dimer High Sensitivty NG/ML Sodium (135-145) mmol/L Potassium (3.3-5.1) mmol/L Chloride (96-108) mmol/L Carbon Dioxide (22-29) mmol/L Anion Gap (12-20) BUN (9-16) mg/dL Creatinine (0.5-1.4) mg/dL Estim Creat Clear Calc Estimated GFR Random Glucose (60-115) mg/dL Lactic Acid (0.5-2.0) mmol/L Calcium (8.4-10.2) mg/dL Total Bilirubin (0.0-1.0) mg/dL Direct Bilirubin (0.0-0.5) mg/dL AST (5-31) U/L ALT (0-31) U/L Alkaline Phosphatase (39-117) U/L Troponin I High Sens 8.9 10.3 (<3.5-17.0) ng/L B-Natriuretic Peptide < 10 (<100) pg/mL Total Protein (6.5-8.0) g/dL Albumin (3.5-5.0) g/dL Urine Color Urine Appearance Urine pH (5.0-8.0) Ur Specific [place] (1.005-1.025) Urine Protein (NEG-TRACE) MG/DL Urine Glucose (UA) (NEG) MG/DL Urine Ketones (NEG) MG/DL Urine Blood (NEG) Urine Nitrite (NEG) Ur Leukocyte Esterase (NEG) Stool Occult Blood (NEGATIVE) COVID-19 (DUTCH) (Negative) COVID-19 Clin Com 01/27/21 Range/Units 16:53 WBC (4.8-10.8) X10*3/uL RBC (4.20-5.50) X10*6/uL Hgb (12.0-16.0) g/dl Hct (37.0-47.0) % MCV (80.0-98.0) fL MCH (27.0-33.0) pg MCHC (31.0-35.0) g/dl RDW (11.0-16.0) % Plt Count (160-400) X10*3/uL MPV Immature Gran % (Auto) (0.0-0.4) % Neut % (Auto) (45-73) % Lymph % (Auto) (20-40) % Pratt % (Auto) (2-11) % Eos % (Auto) (0-4) % Baso % (Auto) (0-2) % Lymph # (Auto) (1.2-4.9) X10*3/uL [place]att # (Auto) (0.1-1.2) X10*3/uL Eos # (Auto) (0.0-0.4) X10*3/uL Baso # (Auto) (0.0-0.2) X10*3/uL Abs Immat Gran (auto) (0.00-0.03) X10*3/uL Absolute Neuts (auto) (2.0-8.3) x10*3/uL Absolute Nucleated RBC (0.0-0.012) X10*3/uL Nucleated RBC % (auto) (0.0-0.2) /100WBC PT (9.9-13.0) SEC INR (0.9-1.1) D-Dimer High Sensitivty NG/ML Sodium (135-145) mmol/L Potassium (3.3-5.1) mmol/L Chloride (96-108) mmol/L Carbon Dioxide (22-29) mmol/L Anion Gap (12-20) BUN (9-16) mg/dL Creatinine (0.5-1.4) mg/dL Estim Creat Clear Calc Estimated GFR Random Glucose (60-115) mg/dL Lactic Acid (0.5-2.0) mmol/L Calcium (8.4-10.2) mg/dL Total Bilirubin (0.0-1.0) mg/dL Direct Bilirubin (0.0-0.5) mg/dL AST (5-31) U/L ALT (0-31) U/L Alkaline Phosphatase (39-117) U/L Troponin I High Sens (<3.5-17.0) ng/L B-Natriuretic Peptide (<100) pg/mL Total Protein (6.5-8.0) g/dL Albumin (3.5-5.0) g/dL Urine Color YELLOW Urine Appearance CLEAR Urine pH 6.0 (5.0-8.0) Ur Specific [place] 1.015 (1.005-1.025) Urine Protein NEG (NEG-TRACE) MG/DL Urine Glucose (UA) NEG (NEG) MG/DL Urine Ketones 5 (NEG) MG/DL Urine Blood NEG (NEG) Urine Nitrite NEG (NEG) Ur Leukocyte Esterase NEG (NEG) Stool Occult Blood (NEGATIVE) COVID-19 (DUTCH) (Negative) COVID-19 Clin Com Imaging Data Chest x-ray: Radiologist's impression: FINDINGS: Patient is rotated to the right. There is no pneumothorax, hyperinflation, infiltrate, groundglass opacity. The vascularity is normal. There is bipolar pacemaker. Heart is normal in size. No visible acute bony abnormality. XR/XR chest 1V IMPRESSION: Unremarkable examination. ECG Data Attestation: I personally reviewed and interpreted this ECG as follows: (Heart rate 74, no ST segment depression or elevation, sinus rhythm, not to inversion, QTC 421) Discharge Plan Discharge Clinical Impression: Atypical chest pain, Rectal bleed, Myalgia Patient Disposition: Home, Self-Care Instructions: Chest Pain (ED), Rectal Bleeding (ED), Musculoskeletal Pain (ED) Additional Instructions: Please follow-up with your primary care physician tomorrow. If you have any worsening or new symptoms, please return to the emergency room or call 911 Prescriptions: No Action sucralfate 100 mg/mL suspension 10 ml PO QIDACHS RF: 0 ondansetron HCl 8 mg tablet 1 tab PO TID PRN (Reason: nausea/vomiting) RF: 0 hydroxyzine pamoate 50 mg capsule 1 cap PO TID PRN (Reason: anxiety) RF: 0 qirpokrhcd-rshglkgdzprew-hfsb 50-325-40 mg tablet 1 tab PO TID PRN (Reason: Headache) RF: 0 lamotrigine 25 mg tablet 1 tab PO DAILY RF: 0 zonisamide 100 mg capsule 1 cap PO BID RF: 0 dicyclomine 20 mg tablet 1 tab PO QID RF: 0 olanzapine 15 mg tablet 1 tab PO BEDTIME RF: 0 diazepam 10 mg tablet 1 tab PO BEDTIME RF: 0 topiramate 100 mg Tablet 200 mg PO DAILY RF: 0 topiramate 100 mg Tablet 400 mg PO BEDTIME RF: 0 lamotrigine 100 mg tablet 1 tab PO BID RF: 0 loratadine 10 mg tablet 1 tab PO DAILY RF: 0 prazosin 2 mg capsule 1 cap PO BEDTIME RF: 0 pregabalin 200 mg capsule 1 cap PO TID RF: 0 Combivent Respimat 20-100 mcg/actuation mist 1 puff PO QID RF: 0 tizanidine 4 mg tablet 1 tab PO TID PRN (Reason: muscle spasm) RF: 0 omeprazole 40 mg capsule,delayed release(DR/EC) 1 cap PO BID RF: 0 warfarin 5 mg Tablet 15 mg PO MOWEFR@16 RF: 0 fluticasone propionate 50 mcg/actuation spray,suspension 2 spray intranasal BID RF: 0 diazepam 5 mg tablet 1 tab PO BID@08,14 RF: 0 warfarin 10 mg tablet 10 mg PO SUTUTHSA@16 RF: 0 ipratropium-albuterol 0.5 mg-3 mg(2.5 mg base)/3 mL solution for nebulization 3 ml inhalation QID PRN (Reason: wheezing) RF: 0 oxycodone 5 mg tablet 5 mg PO Q8H PRN (Reason: pain) Qty: 10 RF: 0 Referrals: Rakesh Medina MD [Physician] - 2 days
[2021-01-27 11:18] VITALS: BP 98/58; PULSE 76; RESP 18; TEMP 36.4; O2SAT 98
[2021-01-27 11:45] LABS: OBS Int Ctl Valid YES; OBS1 POSITIVE (NEGATIVE)
[2021-01-27 11:59] LABS: COVID-19 Test Negative (Negative); IDNOW Serial# 08D9AD1C
[2021-01-27 12:24] LABS: MANUAL DIFF FLAG NO
[2021-01-27 12:29] LABS: Basophils Percent Auto 0.1 % (0-2); Eosinophils Percent Auto 0.3 % (0-4); Hemoglobin 13.2 g/dl (12.0-16.0); Imm Gran Abs Auto 0.02 X10*3/uL (0.00-0.03); Imm Gran Pct Auto 0.3 % (0.0-0.4); Lymphocytes Absolute Auto 1.6 X10*3/uL (1.2-4.9); Lymphocytes Percent Auto 21.9 % (20-40); Mean Corpuscular HGB Conc 31.4 g/dl (31.0-35.0); Mean Corpuscular Hemoglobin 21.9 pg (27.0-33.0); Mean Corpuscular Volume 69.7 fL (80.0-98.0); Monocytes Absolute Auto 0.5 X10*3/uL (0.1-1.2); Monocytes Percent Auto 6.5 % (2-11); Neutrophils Absolute Auto 5.2 x10*3/uL (2.0-8.3); Neutrophils Percent Auto 70.9 % (45-73); Platelet Count 185 X10*3/uL (160-400); Red Blood Count 6.03 X10*6/uL (4.20-5.50); Red Cell Distribution Width 22.2 % (11.0-16.0); White Blood Count 7.4 X10*3/uL (4.8-10.8)
[2021-01-27 12:33] LABS: Lactic Acid 0.9 mmol/L (0.5-2.0)
[2021-01-27 12:33] LABS: INTERNATIONAL NORM RATIO 2.8 (0.9-1.1)
[2021-01-27 12:50] LABS: B Type Natriuretic Peptide < 10 pg/mL (<100); Troponin-I High Sensitivity 8.9 ng/L (<3.5-17.0)
[2021-01-27 13:00] LABS: Alanine Aminotransferase 34 U/L (0-31); Albumin Level 4.2 g/dL (3.5-5.0); Alkaline Phosphatase 138 U/L (39-117); Anion Gap 10 (12-20); Aspartate Amino Transferase 18 U/L (5-31); Bilirubin Direct < 0.2 mg/dL (0.0-0.5); Bilirubin Total 0.2 mg/dL (0.0-1.0); Blood Urea Nitrogen 4 mg/dL (9-16); Calcium 8.5 mg/dL (8.4-10.2); Carbon Dioxide 19 mmol/L (22-29); Chloride 114 mmol/L (96-108); Creatinine Clr Calc Pharmacy 116.8; Estimated Glomerular Filt Rate > 60; Glucose Random 91 mg/dL (60-115); Potassium 3.2 mmol/L (3.3-5.1); Sodium 140 mmol/L (135-145)
[2021-01-27 13:10] VITALS: BP 114/75; PULSE 65; RESP 14; O2SAT 99
[2021-01-27] MEDS: Acetaminophen 325 MG TABLET 650 MG PO (13:19)
[2021-01-27 14:20] VITALS: BP 117/85; PULSE 69; RESP 16; O2SAT 100
--- NOTE | 2021-01-27 14:51 | PC.NURSE ---
Pt refused any more attempts after unsuccessful blood draw. RN aware.
[2021-01-27 15:16] LABS: D Dimer High Sensitivity 185 NG/ML
[2021-01-27 15:40] LABS: Hematocrit 42.2 % (37.0-47.0); Hemoglobin 13.4 g/dl (12.0-16.0)
[2021-01-27 15:56] LABS: Troponin-I High Sensitivity 10.3 ng/L (<3.5-17.0)
[2021-01-27 17:00] VITALS: BP 121/94; PULSE 66; RESP 20; O2SAT 99
[2021-01-27 17:07] LABS: Appearance Urine CLEAR; Color Urine YELLOW; Glucose Urine UA NEG (NEG); Leukocyte Esterase Urine NEG (NEG); Nitrite Urine NEG (NEG); Specific Gravity - Urine 1.015 (1.005-1.025); Urine Blood NEG (NEG); Urine Ketones 5 MG/DL (NEG); Urine Protein NEG (NEG-TRACE)
[2021-01-27] MEDS: traMADoL HCL 50 MG TABLET PO (17:54)
[2021-01-27 18:20] LABS: Mucus Urine TRACE /LPF; RBC Urine 0 /HPF (0); Squamous Epithelial Cell Urine TRACE /LPF; WBC Urine 0-2 /HPF (0-4)
== END 2021-01-27 18:13 | disposition home or self-care (01) ==
PROVIDERS: Emergency Provider Emergency Medicine; PCP Family Medicine
DX: R07.9 Chest pain, unspecified (principal); K62.5 Hemorrhage of anus and rectum; R06.02 Shortness of breath; M79.10 Myalgia, unspecified site; F12.90 Cannabis use, unspecified, uncomplicated; F17.210 Nicotine dependence, cigarettes, uncomplicated; Z20.822 Contact with and (suspected) exposure to COVID-19; Z79.899 Other long term (current) drug therapy; Z79.01 Long term (current) use of anticoagulants; Z71.6 Tobacco abuse counseling
CPT/HCPCS: 36415; 71045; 80048; 80076; 81001; 82272; 83605; 83880; 84484; 85014; 85018; 85025; 85379; 85610; 87040; 87635; 93005; 99284; 99285